=== PATIENT | female | born 1935 | race Caucasian/White ===

== ENCOUNTER → 2019-05-21 14:24 | Outpatient (CLI) | payer MEDICARE, BC, SELFPAY ==
--- NOTE | ~2019-05-21 | XR_ITS ---
EXAMINATION: XR chest 2V EXAM DATE: 05/21/2019 14:49 INDICATION: Wheezing, cough. TECHNIQUE: Frontal and lateral projections of the chest obtained and reviewed. Comparison is made to prior examination from 04/15/2018. FINDINGS: There is a dual lead pacemaker/AICD seen with leads projecting over the expected locations of the right atrial appendage and right ventricle. Left midlung zone granuloma. The lungs are otherwi se clear. There are no pleural effusions. The cardiomediastinal silhouette is within normal limits. There is no pneumothorax suspected. The bones and soft tissues are unremarkable. IMPRESSION: No acute cardiopulmonary findings. Reviewed, dictated and finalized at location B. ER GUARD
== END ==
PROVIDERS: PCP Family Medicine; Visit Provider Family Medicine
DX: R05 Cough (principal); R06.2 Wheezing
CPT/HCPCS: 71046

== ENCOUNTER 2021-01-06 08:49 | Outpatient (CLI) | payer MEDICARE, BC, SELFPAY | END 2021-01-06 08:50 | disposition home or self-care (01) | LOC: ANHBWCAUD 08:50 | PROVIDERS: PCP Family Medicine; Visit Provider Family Medicine | DX: H90.3 Sensorineural hearing loss, bilateral (principal) | CPT/HCPCS: 92557; 92567 ==

== ENCOUNTER 2021-01-20 09:46 | Outpatient (RCR) | payer MEDICARE, BC, SELFPAY | END 2021-04-20 23:59 | disposition home or self-care (01) | LOC: ANHBWCAUD 09:46 | PROVIDERS: PCP Family Medicine; Visit Provider Family Medicine | DX: Z46.1 Encounter for fitting and adjustment of hearing aid (principal) | CPT/HCPCS: V5261 ==

== ENCOUNTER 2021-03-26 09:40 | Emergency (ER) | payer MEDICARE, BC, SELFPAY ==
[2021-03-26 09:54] VITALS: BP 181/60; PULSE 76; RESP 20; TEMP 36.9; O2SAT 95
--- NOTE | 2021-03-26 10:21 | ED.URI ---
HPI - URI/Sore Throat General Chief Complaint: Upper Respiratory Infection Stated Complaint: congestion Time Seen by Provider: 03/26/21 10:25 Source: patient, family and RN notes reviewed Mode of arrival: ambulatory Limitations: no limitations History of Present Illness HPI Narrative: Israel is an 85-year-old female patient who ambulated into the [facility] accompanied by her granddaughter. Her 2 granddaughters are her primary caregivers. Patient has a 2-day history of nasal congestion. Patient denies any other symptoms. Patient is having a pacemaker battery exchange on April 01 and just wanted to make sure she had nothing she needed antibiotics for. Patient has been taking Coricidin BP x1 dose at home. MD elicited complaint: nasal congestion Related Data Home Medications Medication Instructions Recorded Confirmed aspirin 81 mg tablet,delayed 81 mg PO DAILY 05/21/19 03/26/21 release calcium carbonate 600 mg calcium 600 mg PO DAILY 05/21/19 03/26/21 (1,500 mg) tablet calcium polycarbophil 625 mg tablet 1,250 mg PO DAILY 05/21/19 03/26/21 cholecalciferol (vitamin D3) 50 2,000 unit PO DAILY 05/21/19 03/26/21 mcg (2,000 unit) tablet cyanocobalamin 1,000 See Rx Instructions .ROUTE 05/21/19 03/26/21 mcg-salcaprozate sodium 100 mg .COMPLEX tablet tablet lisinopril 30 mg tablet 30 mg PO BID 10/06/20 03/26/21 Allergies Allergy/AdvReac Type Severity Reaction Status Date / Time adhesive tape Allergy Severe BLISTERS, Verified 03/26/21 09:58 RED, SKIN BREAKDOWN celecoxib Allergy Unknown Agitated Verified 03/26/21 09:58 diclofenac Allergy Unknown Redness of Verified 03/26/21 09:58 Skin levofloxacin Allergy Unknown Unknown Verified 03/26/21 09:58 mirabegron Allergy Unknown Unknown Verified 03/26/21 09:58 pneumococcal vaccine Allergy Unknown Unknown Verified 03/26/21 09:58 Quinolones Allergy Unknown Unknown Verified 03/26/21 09:58 hydrochlorothiazide Allergy low sodium Verified 03/26/21 09:58 Influenza Virus Vaccines Allergy Unknown Verified 03/26/21 10:09 metoprolol Allergy Unknown Verified 03/26/21 10:09 DICLOFENAC SODIUM Allergy Mild Nausea Uncoded 10/06/20 10:10 Review of Systems Review of Systems: CONSTITUTIONAL: Denies body aches, fever, chills, or sweats. EYES: Denies visual changes, redness, or discharge. ENT: Denies rhinorrhea,+ congestion, denies sore throat, or otalgia. CARDIOVASCULAR: Denies chest pain, palpitations, or edema. RESPIRATORY: Denies cough or dyspnea. GASTROINTESTINAL: Denies abdominal pain, nausea, vomiting, or diarrhea. GENITOURINARY: Denies dysuria or hematuria. SKIN: Denies rash, itching, or wounds. MUSCULOSKELETAL: Denies back pain, joint pain, or myalgia. NEUROLOGIC: Denies headache, numbness, tingling, or weakness. PSYCH: Denies depression or anxiety. All systems reviewed & are unremarkable except as noted in HPI and below PMFSH Past Medical History Medical History Hearing difficulty Surgical History Surgical History History of hip surgery Family History Family History Mother Family history of pancreatic cancer Father Acute myocardial infarction Social History Social History Smoking status: Never smoker Second hand tobacco smoke exposure: No Alcohol intake: never Substance use: never Comments At time of signature, I have reviewed and agree with nursing past medical, surgical, social and family history unless otherwise noted. Please see nursing chart for further information. There is no relevant family history pertinent to the presenting complaint Exam Narrative: GENERAL: Well-appearing, well-nourished, and in no acute distress. HEAD: Normocephalic, atraumatic. EYES: EOMI. No redness or drainage. Conjunctivae normal.
== END 2021-03-26 10:35 | disposition home or self-care (01) ==
PROVIDERS: Emergency Provider Nurse Practitioner Family; PCP Family Medicine
DX: J30.9 Allergic rhinitis, unspecified (principal); Z79.82 Long term (current) use of aspirin
CPT/HCPCS: 99211; G0463

== ENCOUNTER 2021-04-01 00:27 | Day surgery (SDC) | payer MEDICARE, BC, SELFPAY ==
--- NOTE | 2021-04-01 07:00 | ECG_ITS ---
Measurements Intervals [place] Rate: 61 P: 184 [place]: 250 QRS: -55 QRSD: 134 T: 62 QT: 443 QTc: 447 Interpretive Statements ELECTRONIC ATRIAL PACEMAKER INCOMPLETE RIGHT BUNDLE BRANCH BLOCK BASELINE ARTIFACT- V6 BORDERLINE ECG Electronically Signed On 04-01-2021 10:26:42 CONVEYOR BELT REPAIRER by Randolph Cruz D.O.
--- NOTE | 2021-04-01 07:10 | SUR.PREOP ---
ARRIVES VIA WC TO [facility] W/ GRANDDAUGHTER, XIANG, AT SIDE FOR SCHEDULED PPM GENERATOR CHANGE OUT W/ DR. BARKSDALE. HX OF DEMENTIA, BUT IS AWAKE, ALERT, [place], ANSWERS QUESTIONS. ABLE TO MAKE NEEDS KNOWN, BUT IS POOR HISTORIAN. ORIENTED TO ROOM, PLAN OF CARE, PROCEDURE. QUESTIONS ANSWERED. IV STARTED, LABS SENT, VS OBTAINED, CONSENT SIGNED, SKIN PREPPED. WILL CONTINUE TO MONITOR.
[2021-04-01 07:30] VITALS: BP 142/57; PULSE 65; RESP 22; TEMP 36.5; O2SAT 93
[2021-04-01 07:40] VITALS: BMI 33.3
--- NOTE | 2021-04-01 07:50 | SUR.PREOP ---
CRYSTAL FROM [employer] HERE TO SEE PT PRIOR TO PPM GENERATOR CHANGE.
[2021-04-01 07:56] LABS: Basophils Absolute Auto 0.1 K/mm3 (0.0-0.1); Basophils Percent Auto 0.5 % (0.2-1.2); Eosinophils Absolute Auto 0.2 K/mm3 (0-0.3); Eosinophils Percent Auto 2.2 % (0-4.4); Hemoglobin 13.8 g/dL (12.0-15.0); Immature Granulocyte Absolute 0.03 K/mm3 (0.00-0.031); Immature Granulocyte Percent A 0.3 % (0-0.5); Lymphocytes Absolute Auto 1.38 K/mm3 (0.9-3.2); Lymphocytes Percent Auto 13.1 % (18.3-44.2); Mean Corpuscular HGB Conc 34.5 g/dl (32-36); Mean Corpuscular Hemoglobin 31.6 pg (26-34); Mean Corpuscular Volume 91.5 fl (80-100); Mean Platelet Volume 10.8 fl (7.4-10.4); Monocytes Absolute Auto 0.7 K/mm3 (0.1-0.6); Monocytes Percent Auto 6.1 % (2.6-8.5); Neutrophils Absolute Auto 8.2 K/mm3 (1.3-6.7); Neutrophils Percent Auto 77.8 % (45.5-73.1); Platelet Count Result 151 k/mm3 (150-375); Red Blood Count 4.37 M/mm3 (4.2-5.4); Red Cell Distribution Width 13.2 % (11.5-14.5); White Blood Count 10.6 K/mm3 (4.5-10.0)
[2021-04-01 08:00] LABS: Anion Gap 7 mmol/L (8-16); Blood Urea Nitrogen 18 mg/dL (7-17); Calcium 9.9 mg/dL (8.4-10.2); Carbon Dioxide 31 mmol/L (22-30); Chloride 103 mmol/L (98-107); Estimated CRCL calculation 35 ml/min; Estimated Glomerular Filt Rate 47; Glucose 107 mg/dL (65-110); Potassium 3.7 mmol/L (3.4-5.0); Sodium 141 mmol/L (137-145)
[2021-04-01 08:10] LABS: Prothrombin Time 13.4 Seconds (11.1-14.7)
--- NOTE | 2021-04-01 08:10 | SUR.PREOP ---
DR. BARKSDALE TO BEDSIDE TO SEE PT.
--- NOTE | 2021-04-01 08:23 | WPDMODSED ---
Moderate Sedation Note-Pt Data Patient Data Diagnosis: Permanent pacemaker at [facility] Present Complaint: no complaint Procedure to be performed/Plan: pacemaker generator change Allergies Allergy/AdvReac Type Severity Reaction Status Date / Time adhesive tape Allergy Severe BLISTERS, Verified 03/31/21 11:25 RED, SKIN BREAKDOWN celecoxib Allergy Unknown Agitated Verified 03/31/21 11:25 diclofenac Allergy Unknown Redness of Verified 03/31/21 11:25 Skin levofloxacin Allergy Unknown Unknown Verified 03/31/21 11:25 mirabegron Allergy Unknown Unknown Verified 03/31/21 11:25 pneumococcal vaccine Allergy Unknown Unknown Verified 03/31/21 11:25 Quinolones Allergy Unknown Unknown Verified 03/31/21 11:25 hydrochlorothiazide Allergy low sodium Verified 03/31/21 11:25 Influenza Virus Vaccines Allergy Unknown Verified 03/31/21 11:25 metoprolol Allergy Unknown Verified 03/31/21 11:25 DICLOFENAC SODIUM Allergy Mild Nausea Uncoded 10/06/20 10:10 Home Medications Medication Instructions Recorded Confirmed Type aspirin 81 mg tablet,delayed 81 mg PO DAILY 05/21/19 03/31/21 History release calcium carbonate 600 mg calcium 600 mg PO DAILY 05/21/19 03/31/21 History (1,500 mg) tablet calcium polycarbophil 625 mg tablet 1,250 mg PO DAILY 05/21/19 03/31/21 History cholecalciferol (vitamin D3) 50 2,000 unit PO DAILY 05/21/19 03/31/21 History mcg (2,000 unit) tablet cyanocobalamin 1,000 See Rx Instructions .ROUTE 05/21/19 03/31/21 History mcg-salcaprozate sodium 100 mg .COMPLEX tablet tablet lisinopril 30 mg tablet 30 mg PO BID 10/06/20 04/01/21 History atorvastatin 20 mg tablet 20 mg PO DAILY #30 tablet 03/07/21 04/01/21 Rx levothyroxine 100 mcg tablet 100 mcg PO DAILY #30 tablet 03/07/21 04/01/21 Rx Sedation/Anesthesia: No previous sedation/anesthesia problems (including family history). [facility] Past Medical History Medical History Hearing difficulty Surgical History Surgical History History of hip surgery Family History Family History Mother Family history of pancreatic cancer Father Acute myocardial infarction Social History Social History Smoking status: Never smoker Second hand tobacco smoke exposure: No Alcohol intake: never Substance use: never Living arrangements: [facility] Mod Sed Physical Exam Physical Exam Pre Procedural Exam: Normal: Appearance ( pleasant elderly lady no distress), Neck, Throat, Airway, Lungs, Heart Size, Heart Rate, Heart Rhythm, Neuro Exam and Extremities Hours since solid foods: 12 Hours since liquid intake: 12 Mallampati Classification: class III Internal Medicine - PN: Obj Da Vital Signs Vital Signs: Vital Signs - 24 hr 04/01/21 07:30 Temperature 36.5 C Pulse Rate 65 Respiratory Rate 22 H Blood Pressure 142/57 H Pulse Oximetry 93 Labs CBC & Chem 7: 04/01/21 07:32 04/01/21 07:32 Labs: Laboratory Results - last 24 hr 04/01/21 04/01/21 04/01/21 07:32 07:32 07:32 WBC 10.6 H RBC 4.37 Hgb 13.8 Hct 40.0 MCV 91.5 MCH 31.6 MCHC 34.5 RDW 13.2 Plt Count 151 MPV 10.8 H Immature Gran % (Auto) 0.3 Neut % (Auto) 77.8 H Lymph % (Auto) 13.1 L [place] % (Auto) 6.1 Eos % (Auto) 2.2 Baso % (Auto) 0.5 Lymph # (Auto) 1.38 [place] # (Auto) 0.7 H Eos # (Auto) 0.2 Baso # (Auto) 0.1 Abs Immat Gran (auto) 0.03 Absolute Neuts (auto) 8.2 H Absolute Nucleated RBC 0.0 Nucleated RBC % 0.0 PT 13.4 INR 1.0 Sodium 141 Potassium 3.7 Chloride 103 Carbon Dioxide 31 H Anion Gap 7 L BUN 18 H Creatinine 1.10 H Estim Creat Clear Calc 35 Estimated GFR 47 L Glucose 107 Calcium 9.9 ASA Classificat
--- NOTE | 2021-04-01 08:24 | PM.IMHP ---
H&P: HPI History of Present Illness Date/Time: 04/01/21 08:24 Chief Complaint: no complaints Narrative: this is an 86-year-old woman with the chronically implanted Medtronic dual-chamber pacemaker system admitted to the hospital as an outpatient this morning for a pacemaker generator change. Patient on routine office follow-up has been found to be at [facility] and therefore is admitted today to have the generator changed. She has a history of symptomatic bradycardia with sick sinus syndrome and pauses and for that reason had a pacemaker implantation about 11 years ago. The device continues to function normal. The leads are functioning properly and anticipate do not anticipate the need to place new leads. She has no specific complaints today. The principal health problem in recent years had been some mildly advancing dementia. Review of Systems Constitutional: Constitutional: Reports no additional constitutional complaints Eyes: Eyes: Reports no additional eye complaints ENT: Reports system reviewed and no additional complaints, except as documented Cardiovascular: Cardiovascular: Reports as per HPI Respiratory: Respiratory: Reports no additional respiratory complaints Gastrointestinal: Gastrointestinal: Reports no additional gastrointestinal complaints Musculoskeletal: Musculoskeletal: Reports no additional musculoskeletal complaints Integumentary/Breasts: Skin/Breast: Reports system reviewed and no additional complaints, except as docu Neurologic: Reports system reviewed and no additional complaints, except as documented [facility] Past Medical History Medical History Hearing difficulty Surgical History Surgical History History of hip surgery Family History Family History Mother Family history of pancreatic cancer Father Acute myocardial infarction Social History Social History Smoking status: Never smoker Second hand tobacco smoke exposure: No Alcohol intake: never Substance use: never Living arrangements: [facility] Home Medications and Allergies Home Medications Medication Instructions Recorded Confirmed Type aspirin 81 mg tablet,delayed 81 mg PO DAILY 05/21/19 03/31/21 History release calcium carbonate 600 mg calcium 600 mg PO DAILY 05/21/19 03/31/21 History (1,500 mg) tablet calcium polycarbophil 625 mg tablet 1,250 mg PO DAILY 05/21/19 03/31/21 History cholecalciferol (vitamin D3) 50 2,000 unit PO DAILY 05/21/19 03/31/21 History mcg (2,000 unit) tablet cyanocobalamin 1,000 See Rx Instructions .ROUTE 05/21/19 03/31/21 History mcg-salcaprozate sodium 100 mg .COMPLEX tablet tablet lisinopril 30 mg tablet 30 mg PO BID 10/06/20 04/01/21 History atorvastatin 20 mg tablet 20 mg PO DAILY #30 tablet 03/07/21 04/01/21 Rx levothyroxine 100 mcg tablet 100 mcg PO DAILY #30 tablet 03/07/21 04/01/21 Rx Allergies Allergy/AdvReac Type Severity Reaction Status Date / Time adhesive tape Allergy Severe BLISTERS, Verified 03/31/21 11:25 RED, SKIN BREAKDOWN celecoxib Allergy Unknown Agitated Verified 03/31/21 11:25 diclofenac Allergy Unknown Redness of Verified 03/31/21 11:25 Skin levofloxacin Allergy Unknown Unknown Verified 03/31/21 11:25 mirabegron Allergy Unknown Unknown Verified 03/31/21 11:25 pneumococcal vaccine Allergy Unknown Unknown Verified 03/31/21 11:25 Quinolones Allergy Unknown Unknown Verified 03/31/21 11:25 hydrochlorothiazide Allergy low sodium Verified 03/31/21 11:25 Influenza Virus Vaccines Allergy Unknown Verified 03/31/21 11:25 metoprolol Allergy Unknown Verified 03/31/21 11:25 DICLOFENAC SODIUM Allergy Mild Nausea Uncoded 10/06/20 10:10 Vital Signs Vital Signs - 24 hr 04/01/21 07:30 Temperature 36.5 C Pulse Rate
--- NOTE | 2021-04-01 09:17 | WPDCARDPROC ---
Cardiac Cath Procedure Note Date of procedure:: 04/01/21 Performing physician:: Mikhail Patiño MD Indication:: permanent dual-chamber pacemaker at [facility] Brief clinical history:: this is a 86-year-old woman with a history of sick sinus syndrome being treated with a chronically implanted dual-chamber Medtronic pacemaker. The device on routine office follow-up has been found to be at [facility] and she is thus the admitted today for a pacemaker generator change. Procedure Procedure performed:: Explantation of depleted pacemaker generator implantation of new dual-chamber pulse generator Sedation/Medication given:: no sedation Access site:: left anterior chest wall at the site of chronically implanted device Estimated blood loss:: less than 10 cc Procedure note:: patient was brought to the cardiac catheterization lab in the postabsorptive state the patient was placed in the supine position on the director of labor relations table and the pacemaker pocket was easily identified with the previous incision and the device is palpable inferior to the incision. The area was prepped and draped in the usual sterile fashion. 1% lidocaine was then infused just inferior to the incision for local anesthesia. I used the plasma blade to incise the skin and the subcutaneous tissue I used electrocautery to provide cutaneous hemostasis. The pacemaker fibrous pocket was encountered and opened with the Metzenbaum scissors and the pacemaker device in the attached leads were removed and found to be visually unremarkable. The leads were then disconnected from the device using the torque wrench. They were connected to the new pacemaker device using the same torque wrench. The pocket was then irrigated with Ancef infused saline. The new device was placed in [place] Alexander antibiotic sleeve. This was then placed into the pocket the pocket was then reclosed in layers using 3-0 Vicryl in interrupted fashion for the subcutaneous tissue and 4-0 Vicryl in a running subcuticular fashion for the skin. The wound was dressed with and Aquacel dressing. Patient was taken to the holding area in stable condition there were no apparent procedural complications of this was well tolerated. Findings:: the explanted device is a Medtronic dual-chamber pacemaker model ADDRO1 serial number [id number] . device was originally implanted March 20, 2010. The newly implanted device is a dual-chamber pacemaker model W1DRO1, serial number [id number]. device is programmed in the DDDR mode lower rate limit 60 upper rate limit 130 av delay 180/150 milliseconds. The atrial lead is the chronically Medtronic bipolar lead model 053941, serial number [id number]. implanted March 20, 2010. R-waves are sensed at 2.5 mV threshold is 0.75 volts at 0.4 milliseconds impedance 399 Ohms. The ventricular lead is the chronically implanted Medtronic bipolar lead model 5076-52 serial number [id number]. which in implanted pulse 10/12/2009. R-waves are sensed at 5.8 mV threshold 0.75 volts at 0.4 milliseconds pacing impedance 406 Ohms. Conclusion:: 1. Successful uncomplicated explantation of depleted dual-chamber pulse generator at [facility] 2. successful uncomplicated implantation of new dual-chamber pulse generator detailed above for ongoing treatment of sick sinus syndrome in this 86-year-old lady. Mikhail Patiño MD [facility]
[2021-04-01 09:35] VITALS: BP 138/50; PULSE 60; RESP 18; TEMP 37.2; O2SAT 95
[2021-04-01 09:50] VITALS: BP 139/49; PULSE 60; RESP 20; O2SAT 90
[2021-04-01 10:05] VITALS: BP 133/53; PULSE 62; RESP 20; O2SAT 94
[2021-04-01 10:20] VITALS: BP 129/50; PULSE 60; RESP 20; O2SAT 95
[2021-04-01 10:35] VITALS: BP 125/45; PULSE 60; RESP 20; O2SAT 93
--- NOTE | 2021-04-01 11:15 | SUR.PHASEII ---
Discharge instructions given and reviewed with granddaughter (POA) and pt. Both verbalized understanding. No new drainaged noted on dressing. Pt has no c/o pain or distress. DC'd home via wheelchair from [facility] holding to granddaughters car all belongings taken by granddaughter.
== END 2021-04-01 11:15 | disposition home or self-care (01) ==
PROVIDERS: PCP Family Medicine; Visit Provider Specialist
PROC: 0JPT0PZ Removal of Cardiac Rhythm Related Device from Trunk Subcutaneous Tissue and Fascia, Open Approach (ICD-10-PCS; CPT 33228; principal; 2021-04-01 08:30)
DX: Z45.010 Encounter for checking and testing of cardiac pacemaker pulse generator [battery] (principal); F03.90 Unspecified dementia, unspecified severity, without behavioral disturbance, psychotic disturbance, mood disturbance, and anxiety; Z79.82 Long term (current) use of aspirin
CPT/HCPCS: 33228; 36415; 80048; 85025; 85610; 93005; C1785; J0690; J7040

== ENCOUNTER → 2021-04-15 17:05 | Outpatient (CLI) | payer MEDICARE, BC, SELFPAY ==
--- NOTE | ~2021-04-15 | XR_ITS ---
EXAMINATION: XR chest 2V DATE: 04/15/2021 17:28 INDICATION: Dyspnea TECHNIQUE: PA and lateral views of the chest were obtained. COMPARISON: Chest radiograph dated 05/21/2019 FINDINGS: Again seen is a calcified nodules in the left midlung zone consistent with old granulomatous disease. Small bilateral paracardial fat pads. No other airspace opacities, pulmonary edema, pleural effusion or pneumothorax.. The cardiomediastinal silhouette is normal. Dual lead pacemaker seen with leads pr ojecting over the expected locations of the right atrium and right ventricle. Cholecystectomy clips i n the right upper quadrant. Mild thoracolumbar levoscoliosis with mild spondylosis. IMPRESSION: 1. No acute cardiopulmonary disease. Reviewed, dictated and finalized at location H. TRONIC PAGE MAKEUP SYSTEM OPERATOR
== END ==
PROVIDERS: PCP Family Medicine; Visit Provider Family Medicine
DX: R06.00 Dyspnea, unspecified (principal); R05.9 Cough, unspecified
CPT/HCPCS: 71046

== ENCOUNTER 2021-05-15 13:52 | Outpatient (RCR) | payer MEDICARE, BC, SELFPAY | END 2021-08-13 23:59 | disposition home or self-care (01) | LOC: ANHBWCAUD 13:52 | PROVIDERS: PCP Family Medicine; Visit Provider Family Medicine | DX: Z46.1 Encounter for fitting and adjustment of hearing aid (principal) | CPT/HCPCS: 99199 ==

== ENCOUNTER 2021-09-14 08:45 | Emergency (ER) | payer MEDICARE, BC, SELFPAY ==
[2021-09-14] VITALS (17 sets, daily range): BP systolic 160–212; BP diastolic 45–74; PULSE 60–77; RESP 13–24; TEMP 36.3–36.8; O2SAT 97–99
--- NOTE | ~2021-09-14 | CT_ITS ---
EXAMINATION: CT brain wo con DATE: 09/14/2021 10:08 INDICATION: Headache. No loss of consciousness. TECHNIQUE: Computed tomography (CT) of the head was performed without intravenous contrast. The dose- length product was 529.67 mGy-cm. Automated exposure control and iterative reconstruction technique w ere employed. COMPARISON: CT dated 10/25/2017 FINDINGS: No acute intracranial hemorrhage, infarction, mass or mass effect. There is intracranial at herosclerosis. Generalized atrophy. There are scattered mild periventricular and subcortical white ma tter changes, most likely related to small vessel ischemic disease (microangiopathy). No depressed sk ull fractures. Paranasal sinuses are pneumatized. Mild small mastoid effusions. IMPRESSION: 1. No acute intracranial abnormality. 2: Chronic age-related findings. Reviewed, dictated and finalized at location A.
--- NOTE | ~2021-09-14 | CT_ITS ---
EXAMINATION: CT facial & cervical spine wo DATE: 09/14/2021 10:08 INDICATION: Head and face injury. TECHNIQUE: Computed tomography (CT) of the maxillofacial region and cervical spine was performed with out intravenous contrast. Automated exposure control and iterative reconstruction technique were empl oyed. The dose-length product was 398.87 mGy-cm. COMPARISON: CT cervical spine 10/25/2017 FINDINGS: MAXILLOFACIAL CT: There are likely changes of ocular lens replacement surgeries. There is rightward deviation of the na lonnie septum. No fracture. There is mild mucosal thickening in the paranasal sinuses. There are small b ilateral mastoid effusions. CERVICAL SPINE CT: Bone alignment is normal. Vertebral body heights are normal. There is mildly decreased disc height at C4-C5, moderately decreased disc height at C5-C6, and mildly decreased disc height at C6-C7. The fol lowing disc levels are specifically discussed: C2-C3: There is no uncovertebral joint osteoarthritis. There is mild bilateral facet joint osteoarthr itis. There is no neural foraminal stenosis. There is no central canal stenosis. C3-C4: There is mild right and moderate left uncovertebral joint osteoarthritis. There is mild bilate ral facet joint osteoarthritis. There is mild bilateral neural foraminal stenosis. There is mild cent ral canal stenosis. C4-C5: There is no uncovertebral joint osteoarthritis. There is mild bilateral facet joint osteoarthr itis. There is mild left neural foraminal stenosis. There is no central canal stenosis. C5-C6: There is severe right and mild left uncovertebral joint osteoarthritis. There is mild bilatera l facet joint osteoarthritis. There is moderate right and mild left neural foraminal stenosis. There is mild central canal stenosis. C6-C7: There is no uncovertebral joint osteoarthritis. There is mild left facet joint osteoarthritis. There is no neural foraminal stenosis. There is no central canal stenosis. C7-T1: There is no uncovertebral joint osteoarthritis. There is mild bilateral facet joint osteoarthr itis. There is no neural foraminal stenosis. There is no central canal stenosis. IMPRESSION: 1. No fracture. 2. Moderate cervical spondylosis. Reviewed, dictated and finalized at location A.
--- NOTE | ~2021-09-14 | XR_ITS ---
EXAMINATION: XR ribs RT 2V w CXR 2V DATE: 09/14/2021 10:01 INDICATION: Right rib pain. Fall. TECHNIQUE: Frontal and lateral views of the chest and 2 views on 3 radiographs of the right ribs were obtained. COMPARISON: Chest 2 views 04/15/2021, CT abdomen and pelvis 12/25/2013 FINDINGS: CHEST TWO VIEWS: A calcified left lung nodule and calcified left hilar lymph nodes are consistent wit h old granulomatous disease. No pleural effusion or pneumothorax. The heart size is normal. There is a left chest wall pacer with leads in the right atrium and right ventricle. Surgical clips in the rig ht upper quadrant are likely from cholecystectomy. RIGHT RIBS: There is no rib fracture. IMPRESSION: 1. No rib fracture. Reviewed, dictated and finalized at location A. IMPRESSION: 1. No rib fracture.
--- NOTE | ~2021-09-14 | XR_ITS ---
XR hip LT min 3V w AP pelvis 09/14/2021 10:01 Indication: Status post fall. Patient landed on hip. Procedure: 5 views of the left hip including AP pelvis Comparison: 04/13/2017 Findings: There is a left femoral bipolar hemiarthroplasty. Prosthesis well seated. No underlying fra cture or traumatic malalignment. Normal mineralization. There are femoral vascular calcifications. Th ere is mild osteoarthritis of the right hip and pubic symphysis. There is lower lumbar spondylosis. Impression: 1: No acute fracture. Reviewed, dictated and finalized at location A. Impression: 1: No acute fracture.
--- NOTE | 2021-09-14 08:59 | ECG_ITS ---
Measurements Intervals [place] Rate: 67 P: 46 DE: 212 QRS: -63 QRSD: 129 T: 53 QT: 398 QTc: 420 Interpretive Statements SINUS RHYTHM WITH FIRST DEGREE AV BLOCK RIGHT BUNDLE BRANCH BLOCK LEFT ANTERIOR FASCICULAR BLOCK BASELINE ARTIFACT- I, II, III, AVR, AVF ABNORMAL ECG Electronically Signed On 09-14-2021 9:10:37 CDT by Randolph Cruz D.O.
[2021-09-14 09:25] LABS: Basophils Absolute Auto 0.1 K/mm3 (0.0-0.1); Basophils Percent Auto 0.6 % (0.2-1.2); Eosinophils Absolute Auto 0.4 K/mm3 (0-0.3); Hematocrit 42.5 % (37.0-47.0); Hemoglobin 14.1 g/dL (12.0-15.0); Immature Granulocyte Absolute 0.06 K/mm3 (0.00-0.031); Immature Granulocyte Percent A 0.6 % (0-0.5); Lymphocytes Absolute Auto 2.49 K/mm3 (0.9-3.2); Mean Corpuscular HGB Conc 33.2 g/dl (32-36); Mean Corpuscular Hemoglobin 31.1 pg (26-34); Mean Corpuscular Volume 93.8 fl (80-100); Mean Platelet Volume 11.2 fl (7.4-10.4); Monocytes Absolute Auto 0.6 K/mm3 (0.1-0.6); Monocytes Percent Auto 6.1 % (2.6-8.5); Neutrophils Percent Auto 62.7 % (45.5-73.1); Platelet Count Result 154 k/mm3 (150-375); Red Blood Count 4.53 M/mm3 (4.2-5.4); Red Cell Distribution Width 13.1 % (11.5-14.5); White Blood Count 9.6 K/mm3 (4.5-10.0)
--- NOTE | 2021-09-14 09:30 | ED.FALL ---
HPI - Fall General Chief Complaint: Fall Stated Complaint: FALL Time Seen by Provider: 09/14/21 09:07 History of Present Illness HPI Narrative: 86-year-old female presents to the emergency room for evaluation of multiple injuries sustained from a fall. Patient states that she was a sitting down in her chair, when the phone rang, she stood up and walked over to her the phone was. Patient states that she suddenly fell backwards striking her face on a heating and air conditioning unit, and then her right ribs and left hip before landing on the floor. Patient denies any dizziness or lightheadedness during the event. Patient denies any altered mental status or loss of consciousness. Patient states that she does not have a history of fall. No, patient is alert and oriented x4, complaining of left facial pain, right rib pain and left hip pain. Patient was ambulatory following the fall. Related Data Home Medications Medication Instructions Recorded Confirmed aspirin 81 mg tablet,delayed 81 mg PO DAILY 05/21/19 04/15/21 release calcium polycarbophil 625 mg tablet 1,250 mg PO DAILY 05/21/19 04/15/21 cholecalciferol (vitamin D3) 50 2,000 unit PO DAILY 05/21/19 04/15/21 mcg (2,000 unit) tablet cyanocobalamin 1,000 1,000 DAILY tablet 05/21/19 04/15/21 mcg-salcaprozate sodium 100 mg tablet lisinopril 30 mg tablet 30 mg PO BID 10/06/20 04/15/21 Allergies Allergy/AdvReac Type Severity Reaction Status Date / Time adhesive tape Allergy Severe BLISTERS, Verified 04/15/21 16:01 RED, SKIN BREAKDOWN celecoxib Allergy Unknown Agitated Verified 04/15/21 16:01 diclofenac Allergy Unknown Redness of Verified 04/15/21 16:01 Skin levofloxacin Allergy Unknown Unknown Verified 04/15/21 16:01 mirabegron Allergy Unknown Unknown Verified 04/15/21 16:01 pneumococcal vaccine Allergy Unknown Unknown Verified 04/15/21 16:01 Quinolones Allergy Unknown Unknown Verified 04/15/21 16:01 hydrochlorothiazide Allergy low sodium Verified 04/15/21 16:01 Influenza Virus Vaccines Allergy Unknown Verified 04/15/21 16:01 metoprolol Allergy Unknown Verified 04/15/21 16:01 DICLOFENAC SODIUM Allergy Mild Nausea Uncoded 04/15/21 16:01 Review of Systems Review of Systems: CONSTITUTIONAL: Denies fever, chills, or sweats. EYES: Denies visual changes, redness, or discharge. ENT: Denies rhinorrhea, congestion, sore throat, or otalgia. CARDIOVASCULAR: Denies chest pain, palpitations, or edema. RESPIRATORY: Denies cough or dyspnea. GASTROINTESTINAL: Denies abdominal pain, nausea, vomiting, or diarrhea. GENITOURINARY: Denies dysuria or hematuria. SKIN: Denies rash or itching. MUSCULOSKELETAL: Reports left face pain, right rib cage pain, left hip pain NEUROLOGIC: Denies headache, numbness, dizziness, or weakness. PSYCHIATRIC: Denies anxiety or depression. PMFSH Past Medical History Medical History Hearing difficulty Surgical History Surgical History History of hip surgery Family History Family History Mother Family history of pancreatic cancer Father Acute myocardial infarction Social History Social History Smoking status: Never smoker Second hand tobacco smoke exposure: No Alcohol intake: never Substance use: never Exam Narrative: GENERAL: Well-appearing, well-nourished, and in no acute distress. HEAD: Normocephalic, tenderness and swelling to the left maxillary region. EYES: PERRLA and EOMI. NECK: Supple. No adenopathy or masses. No carotid bruits or JVD CHEST: Clear to auscultation. No respiratory distress. No wheezes rales or rhonchi; tenderness to the anterior 11th and 12th ribs, no flail chest, no ecchymosis HEART: Regular rate and rhythm. No murmur heard. Normal peripheral pulses. ABDOMEN: Soft, non
[2021-09-14 09:54] LABS: Alanine Aminotransferase 20 U/L (6-35); Albumin Level 4.4 g/dL (3.5-5.1); Alkaline Phosphatase 72 U/L (38-126); Anion Gap 10 mmol/L (8-16); Aspartate Amino Transferase 44 U/L (14-36); Blood Urea Nitrogen 16 mg/dL (7-17); Calcium 9.6 mg/dL (8.4-10.2); Carbon Dioxide 28 mmol/L (22-30); Chloride 101 mmol/L (98-107); Estimated CRCL calculation 41 ml/min; Estimated Glomerular Filt Rate 59; Glucose 115 mg/dL (65-110); Potassium 4.9 mmol/L (3.4-5.0); Sodium 139 mmol/L (137-145)
[2021-09-14 10:03] LABS: Troponin I 0.021 ng/mL (0.000-0.034)
[2021-09-14] MEDS: lisinopriL 10 MG TABLET 30 MG PO (10:17)
[2021-09-14] MEDS: cloNIDine HCL 0.1 MG TABLET PO (11:13)
== END 2021-09-14 12:17 | disposition home or self-care (01) ==
PROVIDERS: Emergency Medicine; Emergency Provider Nurse Practitioner Family; PCP Family Medicine
DX: S00.83XA Contusion of other part of head, initial encounter (principal); N30.00 Acute cystitis without hematuria; S79.912A Unspecified injury of left hip, initial encounter; S29.9XXA Unspecified injury of thorax, initial encounter; I45.2 Bifascicular block; I44.0 Atrioventricular block, first degree; Z79.82 Long term (current) use of aspirin; W01.198A Fall on same level from slipping, tripping and stumbling with subsequent striking against other object, initial encounter
CPT/HCPCS: 36415; 70450; 70486; 71046; 71100; 72125; 73502; 80053; 84484; 85025; 93005; 96365; 99284; A9270; J0696

== ENCOUNTER 2021-10-12 06:36 | Outpatient (CLI) | payer MEDICARE, BC, SELFPAY ==
--- NOTE | ~2021-10-12 | CT_ITS ---
EXAMINATION: CT brain wo con INDICATION: Head injury COMPARISON: None TECHNIQUE: Standard unenhanced head CT. The dose-length product (DLP) was 605.33 mGy-cm. The mA was a djusted according to patient size. Iterative reconstruction technique was employed. FINDINGS: There is no acute intraparenchymal hemorrhage. No evidence of mass lesion. No evidence of a cute infarction. There is mild periventricular and subcortical hypodensity probably related to small vessel ischemic disease. There is mild prominence of the sulci and ventricles related to cerebral atr ophy. Intracranial calcified cerebral atherosclerosis is noted. There are no extra-axial collections. There is no mass effect or midline shift. Changes in the globes are likely from ocular lens surgery. The visualized sinuses and mastoid air cells are well aerated. IMPRESSION: 1. No acute intracranial abnormality. 2. Age related findings. Reviewed, dictated and finalized at location A.
== END 2021-10-12 06:37 | disposition home or self-care (01) ==
PROVIDERS: PCP Family Medicine; Visit Provider Family Medicine
DX: S09.90XA Unspecified injury of head, initial encounter (principal); W19.XXXA Unspecified fall, initial encounter
CPT/HCPCS: 70450

== ENCOUNTER 2022-02-07 10:48 | Observation (INO) | payer MEDICARE, BC, SELFPAY ==
[2022-02-07] VITALS (24 sets, daily range): BP systolic 86–199; BP diastolic 49–99; PULSE 60–82; RESP 12–20; TEMP 36.4–36.5; O2SAT 92–100
--- NOTE | ~2022-02-07 | CT_ITS ---
EXAMINATION: CT brain wo con DATE: 02/07/2022 12:45 INDICATION: Head injury post fall TECHNIQUE: Computed tomography (CT) of the head was performed without intravenous contrast. Sagittal and coronal reconstructions were performed. The mA was adjusted according to patient size. Iterative reconstruction technique was employed. The dose-length product was 605.33 mGy-cm. COMPARISON: head CT dated 10/12/2021 FINDINGS: No fracture. No acute intracranial hemorrhage, acute infarction or abnormal extra axial fluid collect ion. There is mild scattered white matter hypoattenuation consistent with chronic small vessel ischem ic disease. Symmetric prominence of the sulci and subarachnoid spaces overlying the convexities cons istent with mild to moderate age-appropriate diffuse cerebral volume loss. Ventricles are normal and symmetric. No mass/mass effect. Changes of bilateral intraocular lens replacement. The orbits and pa ranasal sinuses are normal. Chronic small bilateral mastoid effusions. IMPRESSION: 1. No fracture or acute intracranial process. 2. Age-related changes including mild to moderate diffuse volume loss and mild scattered white matter hypoattenuation consistent with chronic small vessel ischemic disease. Reviewed, dictated and finalized at location A. IMPRESSION: 1. No fracture or acute intracranial process. 2. Age-related changes including mild to moderate diffuse volume loss and mild scattered white matter hypoattenuation consistent with chronic small vessel isc hemic disease.
--- NOTE | ~2022-02-07 | XR_ITS ---
EXAMINATION: XR hip RT 2V w AP pelvis DATE: 02/07/2022 12:57 INDICATION: Right hip pain post fall TECHNIQUE: Anteroposterior view of the pelvis and anteroposterior and frog-leg lateral views of the r ight hip were obtained. COMPARISON: 09/14/2021 FINDINGS: Bipolar type left hip hemiarthroplasty which remains in near-anatomic alignment. No fractures. Mild o steoarthritis at the right hip and bilateral sacral iliac joints. Normal bowel gas pattern. IMPRESSION: 1. No acute osseous abnormality. 2. Bipolar type left hip hemiarthroplasty mild osteoarthritis at the right hip and bilateral sacraliz ed joints. Reviewed, dictated and finalized at location A. IMPRESSION: 1. No acute osseous abnormality. 2. Bipolar type left hip hemiarthroplasty mild osteoarthritis at the right hip and bilateral sacralized joints.
--- NOTE | ~2022-02-07 | US_ITS ---
EXAMINATION: US carotid duplex BI DATE: 02/08/2022 11:31 INDICATION: Syncope. TECHNIQUE: Grayscale, color Doppler, and pulsed Doppler images of the cervical carotid arteries were obtained. The degree of vessel stenosis is placed in one of the following categories: normal, <50%, 5 0-69%, >=70% but less than near-occlusion, near-occlusion, or total occlusion. Note that percent sten osis relative to normal distal artery lumen diameter is indirectly measured from velocity measurement s as described by Roel, et al. Radiology 2003; 229:340-346. COMPARISON: None. FINDINGS: RIGHT: The right common carotid artery (CCA) peak systolic velocity (PSV) is 137 cm/s. The right internal ca rotid artery (ICA) PSV is 129 cm/s. The right ICA end-diastolic velocity (EDV) is 13 cm/s. The right ICA/CCA PSV ratio is 1.7. Grayscale and color Doppler images yield an estimate of <50% diameter reduc tion from plaque in the ICA. There is antegrade flow in the right vertebral artery. LEFT: The left CCA PSV is 106 cm/s. The left ICA PSV is 103 cm/s. The left ICA EDV is 21 cm/s. The left ICA /CCA PSV ratio is 1.3. Grayscale and color Doppler images yield an estimate of <50% diameter reductio n from plaque in the ICA. There is antegrade flow in the left vertebral artery. IMPRESSION: 1. <50% stenosis in the right internal carotid artery. 2. <50% stenosis in the left internal carotid artery. Reviewed, dictated and finalized at location B.
--- NOTE | ~2022-02-07 | XR_ITS ---
EXAMINATION: XR chest 2V DATE: 02/07/2022 12:57 INDICATION: Right-sided chest pain TECHNIQUE: frontal and lateral views of the chest were obtained. COMPARISON: Chest radiograph dated 09/14/2021 FINDINGS: Calcified nodule in the left lower lung zone consistent with old granulomatous disease. No other airs pace opacities, pulmonary edema, pleural effusion or pneumothorax. The cardiomediastinal silhouette i s within normal limits for AP technique. Dual lead pacemaker seen with leads projecting over the expe cted locations of the right atrium and right ventricle. Cholecystectomy clips in right upper quadrant . Mild thoracolumbar levocurvature with mild spondylosis. IMPRESSION: 1. No acute cardiopulmonary disease. Reviewed, dictated and finalized at location A.
--- NOTE | 2022-02-07 12:13 | ED.FALL ---
HPI - Fall General Chief Complaint: Fall Stated Complaint: multiple falls over the past few months. Time Seen by Provider: 02/07/22 11:35 History of Present Illness HPI Narrative: 86-year-old female presenting the emergency department for evaluation after having multiple falls. Patient had a fall a few days ago during which she was in the shower looked up and fell to the right side injuring her right side and her right hip. Patient was not evaluated by physician at that time. Today the patient went to answer the phone, stood up from the couch walked approximately 4 feet and then fell to the ground. Patient states she had no sensation of lightheaded dizziness or generalized weakness. Patient states she was completely unaware that she was going to fall but woke up on the ground. Patient states she was able to get up on her own after the fall. Patient did go out to breakfast with her family after the fall and then they presented to the emergency department for evaluation. History of frequent falls, chronic kidney disease, dementia, sick sinus syndrome with pacemaker. Related Data Home Medications Medication Instructions Recorded Confirmed aspirin 81 mg tablet,delayed 81 mg PO DAILY 05/21/19 02/07/22 release (Adult Low Dose Aspirin) calcium polycarbophil 625 mg 625 mg PO DAILY 05/21/19 02/07/22 tablet (Fiber-Lax) cholecalciferol (vitamin D3) 50 2,000 unit PO DAILY 05/21/19 02/07/22 mcg (2,000 unit) tablet lisinopril 30 mg tablet 30 mg PO BID 10/06/20 02/07/22 cyanocobalamin (vitamin B-12) 1,000 mcg PO DAILY 02/07/22 02/07/22 1,000 mcg tablet (Vitamin B-12) Allergies Allergy/AdvReac Type Severity Reaction Status Date / Time adhesive tape Allergy Severe BLISTERS, Verified 02/07/22 17:46 RED, SKIN BREAKDOWN celecoxib Allergy Unknown Agitated Verified 02/07/22 17:46 diclofenac Allergy Unknown Redness of Verified 02/07/22 17:46 Skin levofloxacin Allergy Unknown Unknown Verified 02/07/22 17:46 mirabegron Allergy Unknown Unknown Verified 02/07/22 17:46 pneumococcal vaccine Allergy Unknown Unknown Verified 02/07/22 17:46 Quinolones Allergy Unknown Unknown Verified 02/07/22 17:46 hydrochlorothiazide Allergy low sodium Verified 02/07/22 17:46 Influenza Virus Vaccines Allergy Unknown Verified 02/07/22 17:46 metoprolol Allergy Unknown Verified 02/07/22 17:46 DICLOFENAC SODIUM Allergy Mild Nausea Uncoded 02/07/22 17:46 Review of Systems Review of Systems: CONSTITUTIONAL: Denies fever, chills, or sweats. EYES: Denies visual changes, redness, or discharge. ENT: Denies rhinorrhea, congestion, sore throat, or otalgia. CARDIOVASCULAR: Denies chest pain, palpitations, or edema. RESPIRATORY: Denies cough or dyspnea. GASTROINTESTINAL: Denies abdominal pain, nausea, vomiting, or diarrhea. GENITOURINARY: Denies dysuria or hematuria. SKIN: Denies rash or itching. MUSCULOSKELETAL: Right-sided chest wall pain and right hip pain NEUROLOGIC: Denies headache, numbness, or weakness. [facility] Past Medical History Medical History (Updated 02/07/22 @ 19:10 by Jack Morocho MD) Benign essential hypertension CKD (chronic kidney disease) Constipation, chronic Dementia Elevated fasting glucose Family history of cancer Frequent falls Hearing difficulty Hyperlipidemia Hyperlipidemia, acquired Hypothyroidism Pacemaker Secondhand smoke exposure Sick sinus syndrome Syncope Vitamin B12 deficiency Surgical History Surgical History History of hip surgery Family History Family History Mother Family history of pancreatic cancer Father Acute myocardial infarction Social History Social History Smoking status: Never smoker Second hand tobacco smoke exposure: No Alcohol intake: never Substance use: never Spiritual care concerns: No Exam Narr
[2022-02-07 13:37] LABS: Add Urine Microscopic? NO; Appearance Urine Clear (Clear); Bilirubin Urine Negative (Negative); Blood Urine Negative (Negative); Color Urine Yellow (Yellow); Glucose Urine UA Negative (Negative); Ketones Urine Negative (Negative); Leukocyte Esterase Ur Negative LEU/UL (Negative); Nitrate Urine Negative (Negative); Protein Urine Negative (Negative); Specific Grav Ur 1.008 (1.001-1.035); Urobilinogen Urine Negative mg/dL (<2.0)
[2022-02-07 14:02] LABS: Basophils Absolute Auto 0.1 K/mm3 (0.0-0.1); Basophils Percent Auto 0.7 % (0.2-1.2); Eosinophils Absolute Auto 0.3 K/mm3 (0-0.3); Eosinophils Percent Auto 3.2 % (0-4.4); Hemoglobin 13.6 g/dL (12.0-15.0); Immature Granulocyte Absolute 0.05 K/mm3 (0.00-0.031); Immature Granulocyte Percent A 0.6 % (0-0.5); Lymphocytes Absolute Auto 1.49 K/mm3 (0.9-3.2); Lymphocytes Percent Auto 16.6 % (18.3-44.2); Mean Corpuscular Hemoglobin 31.6 pg (26-34); Mean Corpuscular Volume 92.8 fl (80-100); Mean Platelet Volume 10.3 fl (7.4-10.4); Monocytes Absolute Auto 0.6 K/mm3 (0.1-0.6); Monocytes Percent Auto 6.1 % (2.6-8.5); Neutrophils Absolute Auto 6.5 K/mm3 (1.3-6.7); Neutrophils Percent Auto 72.8 % (45.5-73.1); Platelet Count Result 194 k/mm3 (150-375); Red Blood Count 4.31 M/mm3 (4.2-5.4); Red Cell Distribution Width 13.4 % (11.5-14.5)
[2022-02-07 14:22] LABS: Alanine Aminotransferase 24 U/L (6-35); Albumin Level 4.5 g/dL (3.5-5.1); Alkaline Phosphatase 72 U/L (38-126); Anion Gap 10 mmol/L (8-16); Aspartate Amino Transferase 34 U/L (14-36); Bilirubin,Total 0.6 mg/dL (0.2-1.3); Blood Urea Nitrogen 20 mg/dL (7-17); Calcium 9.7 mg/dL (8.4-10.2); Carbon Dioxide 29 mmol/L (22-30); Chloride 97 mmol/L (98-107); Estimated CRCL calculation 31 ml/min; Estimated Glomerular Filt Rate 43; Glucose 123 mg/dL (65-110); Magnesium 1.8 mg/dL (1.6-2.3); Potassium 4.2 mmol/L (3.4-5.0); Sodium 136 mmol/L (137-145)
--- NOTE | 2022-02-07 16:50 | PM.IMHP ---
H&P: HPI History of Present Illness Date/Time: 02/07/22 16:50 Chief Complaint: Fall Narrative: 86-year-old female with past medical history significant for hypothyroidism, hypertension, hyperlipidemia, dementia, frequent falls, sick sinus syndrome with pacemaker implanted is presenting with another fall. Patient states that she was walking to the phone after she stood up from the couch and simply fell and sat down on a box on the ground. She states that her legs did not give out, she did not feel weak, she had no shortness of breath or sensation that she was going to fall, she simply fell. She denies losing consciousness. She did not have any lightheadedness, dizziness, weakness or chest pain, prior to the fall. Shortly after, her family took her out to breakfast before bringing her to the ER for evaluation. She states she was in her usual state of health prior to the fall. She denies any fevers, chills, nausea, vomiting or diarrhea. No headaches or vision changes. Of note, patient reports that she did have a fall a few days ago when she was in the shower and looked up and then fell to the right side, injuring her right ribs and hip. Again, the patient denies any symptoms prior to the fall that would trigger her that she was about to fall. She had no headache, vision changes, lightheadedness, dizziness, shortness of breath, chest pain, weakness, sensation of her legs giving out. She again denies losing consciousness. She states that she had an appointment with Cardiology earlier this month where they asked about her fall as well, she says she told them exactly what she told me and they were baffled. She states that her pacemaker was working well as of earlier this month. All imaging in the ER was negative for acute injury, including chest x-ray, hip and pelvis x-rays. Head CT also performed without any abnormalities noted. Lab work was essentially benign with a mild hyponatremia at 1:36 a.m., mild acute kidney injury with a creatinine of 1.2, baseline closer to 0.9. Urinalysis was negative for infection. Review of Systems Review of Systems: 12 point review of systems was assessed and was negative except as noted in the HPI [facility] Past Medical History Medical History Benign essential hypertension CKD (chronic kidney disease) Dementia Frequent falls Hearing difficulty Hyperlipidemia Hypothyroidism Pacemaker Sick sinus syndrome Syncope Surgical History Surgical History History of hip surgery Family History Family History Mother Family history of pancreatic cancer Father Acute myocardial infarction Social History Social History Smoking status: Never smoker Second hand tobacco smoke exposure: No Alcohol intake: never Substance use: never Meds Home Medications and Allergies Home Medications Medication Instructions Recorded Confirmed Type aspirin 81 mg tablet,delayed 81 mg PO DAILY 05/21/19 04/15/21 History release (Adult Low Dose Aspirin) calcium polycarbophil 625 mg 1,250 mg PO DAILY 05/21/19 04/15/21 History tablet (Fiber-Lax) cholecalciferol (vitamin D3) 50 2,000 unit PO DAILY 05/21/19 04/15/21 History mcg (2,000 unit) tablet lisinopril 30 mg tablet 30 mg PO BID 10/06/20 04/15/21 History spirometers and accessories #1 ea 09/30/21 09/30/21 Rx atorvastatin 20 mg tablet (Lipitor) 20 mg PO DAILY #90 tabs 10/30/21 Rx levothyroxine 100 mcg tablet 100 mcg PO DAILY #90 tabs 10/30/21 Rx (Synthroid) cyanocobalamin (vitamin B-12) 1,000 mcg PO DAILY 02/07/22 02/07/22 History 1,000 mcg tablet (Vitamin B-12) Allergies Allergy/AdvReac Type Severity Reaction Status Date / Time adhesive tape Allergy Severe BLISTERS, Verified 04/15/21 16:01 RED, SKIN BREAKDOWN c
[2022-02-07 17:45] LABS: Hemoglobin A1C 5.7 % (<5.7)
[2022-02-07 17:52] LABS: D Dimer 0.88 ug/mL (<0.48)
[2022-02-07 18:00] LABS: Troponin I 0.025 ng/mL (0.000-0.034)
--- NOTE | 2022-02-07 18:05 | ADMGEN ---
This patient, Israel Piña, was admitted to 3 [facility] Surg Room 305-01. Report received from LISA Kilpatrick. Patient/family oriented to hospital policies and general routines including ID bracelet, bed and alarms, visiting hours, pain management, procedures, bathroom and other care routines, personal items, smoking policy, room service/diet, and visiting hours. Information on how to activate the Rapid Response Team has been discussed. Patient/Family are encouraged to report perceived risks to care and to ask questions if they do not understand what they are told or what they should do.
[2022-02-07] MEDS: SODIUM CHLORIDE 0.9% IV 1,000 ML 75 ML IV CONT (18:24)
[2022-02-07 18:50] LABS: Folic Acid 7.2 ng/mL (2.76->20); Vitamin B12 > 1000.0 pg/mL (239-931)
[2022-02-07 20:14] LABS: Troponin I 0.026 ng/mL (0.000-0.034)
[2022-02-08] VITALS (14 sets, daily range): BP systolic 114–206; BP diastolic 51–78; PULSE 59–75; RESP 14–20; TEMP 36.6–37; O2SAT 95–99
--- NOTE | 2022-02-08 | ECHO_ITS ---
Patient Info Name: Israel Piña Age: 86 years : 1935 Gender: Female Ht: 62 in Wt: 192 lbs BSA: 1.99 m2 HR: 71 bpm BP: 187 / 65 mmHg Heart Rhythm: Sinus Rhythm Technical Quality: Fair Exam Date: 02/08/2022 9:42 AM Exam Location: [facility] Pulmonary Patient Status: Outpatient Admit Date: 02/07/2022 Staff Ordering Physician: Yvonne Rogel DO [employer] Technical Officer: Michelle Shelley RDCS Attending Provider: Hernandez Mason MD Referring Physician: Pebbles ARAGON; Exam Type: CA echo doppler color flow Study Info Indications R55 - Syncope and collapse Complete two-dimensional, color flow and Doppler transthoracic echocardiogram is performed. Summary 1. Complete two-dimensional, color flow and Doppler transthoracic echocardiogram is performed. 2. Left ventricular systolic function is hyperdynamic, estimated at >70%. 3. Left ventricular chamber dimension is normal. 4. Linear artifact in right ventricle suggestive of catheter(s), pacemaker lead(s), or ICD lead(s). 5. Trivial mitral regurgitation otherwise no valvular dysfunction. Left Ventricle Left ventricular chamber dimension is normal. Left ventricular systolic function is hyperdynamic, estimated at >70%. The left ventricular diastolic function is grade I diastolic dysfunction. Right Ventricle Right ventricular chamber dimension is normal. Linear artifact in right ventricle suggestive of catheter(s), pacemaker lead(s), or ICD lead(s). Left Atria Left atrial chamber dimension is normal. Right Atria Right atrial chamber dimension is normal. Aortic Valve The aortic valve is trileaflet. There is mild aortic valve sclerosis. Pulmonic Valve The pulmonic valve is normal. Mitral Valve The mitral valve has normal leaflets. Tricuspid Valve The tricuspid valve leaflets are normal. Pericardium/Pleural The pericardium appears normal. Aorta The aortic root size at the sinus of Valsalva is normal. Left Ventricular Outflow Tract Name Value Normal LVOT 2D LVOT Diameter 2.0 cm LVOT Doppler LVOT Peak Gradient 4 mmHg LVOT Mean Gradient 2 mmHg LVOT VTI 25 cm LVOT VTI/AV VTI Ratio 0.8 LVOT Stroke Volume 79 ml LVOT CO 4.9 l/min LVOT CI 2.5 l/min/m2 Pulmonic Valve Name Value Normal RVOT Doppler RVOT Peak Gradient 3 mmHg PV Doppler PV Peak Gradient 4 mmHg Mitral Valve Name Value Normal
--- NOTE | 2022-02-08 05:00 | ECG_ITS ---
Measurements Intervals [place] Rate: 62 P: -78 WA: 310 QRS: -65 QRSD: 145 T: 25 QT: 420 QTc: 428 Interpretive Statements ELECTRONIC ATRIAL PACEMAKER RIGHT BUNDLE BRANCH BLOCK [120+ ms QRS DURATION, UPRIGHT V1, 40+ ms S IN I/aVL/V4/V5/V6] LEFT ANTERIOR FASCICULAR BLOCK [QRS AXIS <= -45, QR IN I, RS IN II] COMPARED TO ECG 09/14/2021 08:58:21 ATRIAL PACING DEMONSTRATED NO OTHER CHANGE Electronically Signed On 02-08-2022 13:55:18 CDT by Mikhail Patiño M.D.
[2022-02-08] MEDS: LEVOTHYROXINE SODIUM 100 MCG TABLET PO (05:36)
[2022-02-08 06:45] LABS: Basophils Absolute Auto 0.1 K/mm3 (0.0-0.1); Basophils Percent Auto 0.8 % (0.2-1.2); Eosinophils Absolute Auto 0.3 K/mm3 (0-0.3); Eosinophils Percent Auto 4.1 % (0-4.4); Hematocrit 36.6 % (37.0-47.0); Hemoglobin 12.3 g/dL (12.0-15.0); Immature Granulocyte Absolute 0.03 K/mm3 (0.00-0.031); Immature Granulocyte Percent A 0.4 % (0-0.5); Immature Platelet Fraction Pct 6.9 % (0.9-11.2); Lymphocytes Absolute Auto 2.44 K/mm3 (0.9-3.2); Lymphocytes Percent Auto 29.3 % (18.3-44.2); Mean Corpuscular HGB Conc 33.6 g/dl (32-36); Mean Corpuscular Hemoglobin 31.4 pg (26-34); Mean Corpuscular Volume 93.4 fl (80-100); Mean Platelet Volume 11.4 fl (7.4-10.4); Monocytes Absolute Auto 0.6 K/mm3 (0.1-0.6); Monocytes Percent Auto 6.9 % (2.6-8.5); Neutrophils Absolute Auto 4.9 K/mm3 (1.3-6.7); Neutrophils Percent Auto 58.5 % (45.5-73.1); Platelet Count Result 178 k/mm3 (150-375); Red Blood Count 3.92 M/mm3 (4.2-5.4); Red Cell Distribution Width 13.3 % (11.5-14.5); White Blood Count 8.3 K/mm3 (4.5-10.0)
[2022-02-08 06:47] LABS: Alanine Aminotransferase 21 U/L (6-35); Alkaline Phosphatase 66 U/L (38-126); Anion Gap 5 mmol/L (8-16); Aspartate Amino Transferase 28 U/L (14-36); Bilirubin,Total 0.6 mg/dL (0.2-1.3); Blood Urea Nitrogen 19 mg/dL (7-17); Carbon Dioxide 26 mmol/L (22-30); Chloride 103 mmol/L (98-107); Cholesterol 158 mg/dL (0-200); Estimated CRCL calculation 37 ml/min; Estimated Glomerular Filt Rate 53; Glucose 109 mg/dL (65-110); HDL Direct 52 mg/dL; Potassium 4.1 mmol/L (3.4-5.0); Sodium 134 mmol/L (137-145); Triglycerides 103 mg/dL (<150)
[2022-02-08 06:58] LABS: LDL Cholesterol Direct 70 mg/dL
[2022-02-08] MEDS: ATORVASTATIN 20 MG TABLET PO (08:54)
[2022-02-08] MEDS: calcium polycarbophiL 625 MG TABLET PO (08:54)
[2022-02-08] MEDS: CYANOCOBALAMIN 1,000 MCG TABLET 1000 MCG PO (08:54)
[2022-02-08] MEDS: ASPIRIN 81 MG ENTERIC TABLET PO (08:54)
[2022-02-08] MEDS: CHOLECALCIFEROL 1,000 UNITS TABLET 2000 UNITS PO (08:54)
[2022-02-08] MEDS: SODIUM CHLORIDE 0.9% IV 1,000 ML 75 ML IV CONT (08:55)
[2022-02-08 12:03] LABS: Vitamin D 25 Hydroxy 62.8 ng/mL
--- NOTE | 2022-02-08 12:52 | PM.CNCAR ---
Assessment and Plan Assessment and plan (1) Falls frequently: Code(s): R29.6 - Repeated falls Status: Acute Plan This is an 86-year-old lady with propensity for falling recently. On the history I obtained for her recently in the office and again this morning it does not appear to me that she is experiencing loss of consciousness. She is falling for some other reason. Her pacemaker is chronically implanted it is functioning normally. Therefore we do not need to be concerned that she is having Farhat arrhythmias or pauses. At this time I do not have any additional cardiac suggestions/recommendations Mikhail Patiño MD [facility] History of Present Illness History of Present Illness Consult date/time: 02/08/22 12:52 Reason For Visit: syncope,falls Narrative: This is an 86-year-old woman with a history of sick sinus syndrome who I aware of her case as I follow her with pacemaker implantation in the past. She has been having problems with falling lately and came to the hospital yesterday after an episode of recurrent falling earlier in the day after she was discussing these is situations with her family. Yesterday morning she states she was in her usual state of health when she got up out of a chair in her kitchen she suddenly felt herself falling backwards she fell to the floor she did not strike her head on the floor she was able to get up and call family. They were discussing this later in the day and decided to bring her to the emergency room for further evaluation. She is not symptomatic with anything when she arrived in the emergency room. Her ECG shows an atrially paced rhythm with normal intraventricular conduction and we are asked to see her in consultation. She has a history of sick sinus syndrome with a chronically implanted [employer] dual-chamber pacing system. Her initial device was implanted in February of 2010 and in routine follow-up in the office was found to be at [place] resulting in the need for me to do her generator change in March of 2021. The device is being followed in the office and is functioning normally. I just saw this patient in the office on 01/28/2022 at which time she did not have any cardiac complaints but she was relating that the tendency to fall. She is clear that she is not losing consciousness when she is falling she is aware of what is going on. Her pacemaker was checked on that date in the office and is functioning normally. As such there is no reason to be concerned about pauses or symptomatic Farhat arrhythmias in my opinion. She has a history of episodes of chest pain in the past but has had 2 previous coronary angiograms demonstrating non diseased coronary arteries. She feels well this afternoon she is supine in bed watching television does not have any active complaints. Her vital signs demonstrate her to be hyper hypertensive and not orthostatic Review of Systems Constitutional: Constitutional: Reports no additional constitutional complaints Eyes: Eyes: Reports no additional eye complaints ENT: Reports system reviewed and no additional complaints, except as documented Cardiovascular: Cardiovascular: Reports no additional cardiovascular complaints Respiratory: Respiratory: Reports no additional respiratory complaints Gastrointestinal: Gastrointestinal: Reports no additional gastrointestinal complaints Musculoskeletal: Comments: Some soreness in the right lateral ribcage from a recent fall Integumentary/Breasts: Skin/Breast: Reports system reviewed and no additional complaints, except as docu Neurologic: Comments: Falling as described above Endocrine: Endocrine: Reports no additional endocrine complaints Hematologic/Lymphatic: Hematologic/Lymphatic: Reports no additional hematologic/lymphatic complaints Allergic/Immunologic: Allergic/Immunologic: Reports no additional allergic/immunologic complaints [facility] Past Medical History Medical History (Updated 02/07/22 @ 19:1
--- NOTE | 2022-02-08 15:18 | PM.IMPN ---
Progress Note: A&P Assessment and Plan (1) Syncope: Code(s): R55 - Syncope and collapse Status: Acute Assessment and Plan: Differential includes arrhythmia versus neurocardiogenic syncope versus seizure versus orthostatic hypotension ...? Check echo, D-dimer, carotid ultrasound, consult Cardiology Consult Neurology, unable to get MRI, consider CTA head and neck (2) Sick sinus syndrome: Code(s): I49.5 - Sick sinus syndrome Status: Acute Assessment and Plan: Monitor telemetry, trend troponin, check EKG now and again in the morning (3) Pacemaker: Code(s): Z95.0 - Presence of cardiac pacemaker Status: Acute Assessment and Plan: Appreciate cardiology consultation, do not think cardiac etiology to her falls (4) Frequent falls: Code(s): R29.6 - Repeated falls Status: Acute Assessment and Plan: Appreciate PT/OT consultation, recommended home health care All labs within normal limits (5) CKD (chronic kidney disease): Code(s): N18.9 - Chronic kidney disease, unspecified Status: Acute Assessment and Plan: Improved on IV fluids, DC for today (6) Hypothyroidism: Code(s): E03.9 - Hypothyroidism, unspecified Status: Acute Assessment and Plan: Check TSH, continue home levothyroxine (7) Hyperlipidemia: Code(s): E78.5 - Hyperlipidemia, unspecified Status: Acute Assessment and Plan: Check lipid panel, continue statin (8) Benign essential hypertension: Code(s): I10 - Essential (primary) hypertension Status: Acute Assessment and Plan: Check orthostatic blood pressure, hold home blood pressure medication (lisinopril) for now (9) Dementia: Code(s): F03.90 - Unspecified dementia, unspecified severity, without behavioral disturbance, psychotic disturbance, mood disturbance, and anxiety Status: Acute Assessment and Plan: Consider starting patient on Namenda versus Aricept, will defer decision to outpatient PCP Plan DVT prophylaxis with SCDs GI prophylaxis not indicated Code status full code Subjective Date/time seen: 02/08/22 15:18 Interval history: No overnight events noted. No chest pain or shortness of breath. No nausea, vomiting or diarrhea. No fevers or chills. Patient has not had any falls while here. Review of Systems Review of Systems: 12 point review of systems was assessed and was negative except as noted in the HPI Exam Narrative: General: No acute distress, alert and oriented per baseline HEENT: Atraumatic, normocephalic, mucous membranes moist CV: Regular rate and rhythm, S1, S2 Lungs: Clear to auscultation bilaterally, no rales or crackles noted, no wheezes, good air entry Abdomen: Soft, nontender, nondistended Extremities: Normal to inspection Skin: No rashes noted, no lesions or wounds seen Psych: Euthymic, normal affect Objective Data Vital Signs Vital Signs: Vital Signs - 24 hr 02/07/22 16:10 02/07/22 22:00 02/07/22 22:02 Temperature Pulse Rate 63 64 67 Respiratory Rate 18 Blood Pressure 156/57 H 187/70 H 198/60 H Pulse Oximetry 99 Oxygen Delivery 02/07/22 22:04 02/07/22 22:00 02/07/22 23:37 Temperature 97.7 F Pulse Rate 79 64 Respiratory Rate 18 Blood Pressure 169/59 H 187/70 H Pulse Oximetry 100 95 Oxygen Delivery Room Air 02/07/22 20:48 02/07/22 20:00 02/08/22 00:00 Temperature Pulse Rate 61 66 Respiratory Rate Blood Pressure Pulse Oximetry Oxygen Delivery Room Air 02/08/22 04:00 02/08/22 06:00 02/08/22 08:00 Temperature 98.0 F Pulse Rate 71 75 63 Respiratory Rate 18 Blood Pressure 187/65 H Pulse Oximetry 95 Oxygen Delivery 02/08/22 13:18 02/08/22 08:00 02/08/22 08:05 Temperature Pulse Rate Respiratory Rate Blood Pressure 173/54 H 114/78 Pulse Oximetry Oxygen Delivery Room Air 02/08/22 08:10 02/08/22 14:00
--- NOTE | 2022-02-08 15:45 | WPDNEURCNPN ---
Assessment and Plan Assessment and plan (1) Syncope: Code(s): R55 - Syncope and collapse Status: Acute (2) Dementia: Code(s): F03.90 - Unspecified dementia, unspecified severity, without behavioral disturbance, psychotic disturbance, mood disturbance, and anxiety Status: Acute (3) Delayed orthostatic hypotension: Code(s): I95.1 - Orthostatic hypotension Status: Acute Plan 1 recurrent falls most likely orthostatic 2 cardiological etiologies have already been ruled out and 3 CT scan of the head is normal, she has had CT scan of the cervical spine in August of this year there was no evidence of cervical stenosis to consider the possibility of cervical myelopathy will need to check the blood pressure in supine and upright several times during the hospitalization had Consult date: 02/08/22 HPI: Israel Piña is a 86 year old femaleAdmitted to the hospitalThrough the emergency room after having had multiple falls most recently she was in the shower looked up and fell to the right side injuring her right side and her right hip at that time she was not evaluated by the physician on the day of admission this time she went to answer the phone is stood up from the couch walked approximately 4ft and fell to the ground she did not feel lightheaded or dizzy did not feel weak all over but she was completely unaware that she was going to fall he did wake up on the ground she went out with the family for the breakfast and then they brought her to the emergency room for further evaluation her outpatient medications include lisinopril 30mg b.i.d. aspirin 81mg daily she has multiple allergies as documented she has ongoing history of hypertension, chronic kidney disease, dementia, multiple falls, hearing difficulties and pacemaker in addition to sick sinus syndrome and vitamin B12 deficiency she has never smoker or alcohol drinker, she has been seen by the soil sampler already where she has been seen recently in the office her pacemaker is chronically implanted and is functionally normal device is being followed in the office and functionally normal he was seen in the cardiology office in January of this year he does not become unconscious and recently when her pacemaker was checked he has a functionally new Review of Systems Review of Systems: All systems reviewed & are unremarkable except as noted in HPI and below [facility] Past Medical History Medical History (Updated 02/08/22 @ 15:58 by Kiet Lozada MD) Benign essential hypertension CKD (chronic kidney disease) Constipation, chronic Dementia Elevated fasting glucose Family history of cancer Frequent falls Hearing difficulty Hyperlipidemia Hyperlipidemia, acquired Hypothyroidism Pacemaker Secondhand smoke exposure Sick sinus syndrome Syncope Vitamin B12 deficiency Surgical History Surgical History History of hip surgery Family History Family History Mother Family history of pancreatic cancer Father Acute myocardial infarction Social History Social History Smoking status: Never smoker Second hand tobacco smoke exposure: No Alcohol intake: never Substance use: never Spiritual care concerns: No Meds Home Medications and Allergies Home Medications Medication Instructions Recorded Confirmed Type aspirin 81 mg tablet,delayed 81 mg PO DAILY 05/21/19 02/07/22 History release (Adult Low Dose Aspirin) calcium polycarbophil 625 mg 625 mg PO DAILY 05/21/19 02/07/22 History tablet (Fiber-Lax) cholecalciferol (vitamin D3) 50 2,000 unit PO DAILY 05/21/19 02/07/22 History mcg (2,000 unit) tablet lisinopril 30 mg tablet 30 mg PO BID 10/06/20 02/07/22 History spirometers and accessories #1 ea 09/30/21 02/07/22 Rx atorvastatin 20 mg tablet (Lipitor) 20 mg PO DAILY #90 tabs
[2022-02-09] VITALS (8 sets, daily range): BP systolic 153–175; BP diastolic 51–70; PULSE 60–66; RESP 14–16; TEMP 36.2–36.4; O2SAT 97–99
[2022-02-09 02:39] LABS: SARS-CoV-2 RNA PCR Negative
[2022-02-09] MEDS: LEVOTHYROXINE SODIUM 100 MCG TABLET PO (05:27)
[2022-02-09 06:15] LABS: Basophils Absolute Auto 0.1 K/mm3 (0.0-0.1); Basophils Percent Auto 0.6 % (0.2-1.2); Eosinophils Absolute Auto 0.4 K/mm3 (0-0.3); Eosinophils Percent Auto 5.1 % (0-4.4); Hematocrit 33.9 % (37.0-47.0); Hemoglobin 11.6 g/dL (12.0-15.0); Immature Granulocyte Absolute 0.02 K/mm3 (0.00-0.031); Immature Granulocyte Percent A 0.3 % (0-0.5); Lymphocytes Absolute Auto 1.87 K/mm3 (0.9-3.2); Lymphocytes Percent Auto 23.7 % (18.3-44.2); Mean Corpuscular HGB Conc 34.2 g/dl (32-36); Mean Corpuscular Volume 90.6 fl (80-100); Mean Platelet Volume 10.4 fl (7.4-10.4); Monocytes Absolute Auto 0.7 K/mm3 (0.1-0.6); Neutrophils Absolute Auto 4.8 K/mm3 (1.3-6.7); Neutrophils Percent Auto 61.3 % (45.5-73.1); Platelet Count Result 165 k/mm3 (150-375); Red Blood Count 3.74 M/mm3 (4.2-5.4); Red Cell Distribution Width 13.2 % (11.5-14.5); White Blood Count 7.9 K/mm3 (4.5-10.0)
[2022-02-09 06:31] LABS: Alanine Aminotransferase 18 U/L (6-35); Albumin Level 3.6 g/dL (3.5-5.1); Alkaline Phosphatase 58 U/L (38-126); Anion Gap 9 mmol/L (8-16); Aspartate Amino Transferase 23 U/L (14-36); Bilirubin,Total 0.6 mg/dL (0.2-1.3); Blood Urea Nitrogen 17 mg/dL (7-17); Carbon Dioxide 27 mmol/L (22-30); Chloride 100 mmol/L (98-107); Estimated CRCL calculation 40 ml/min; Estimated Glomerular Filt Rate 59; Glucose 106 mg/dL (65-110); Potassium 3.8 mmol/L (3.4-5.0); Sodium 136 mmol/L (137-145)
[2022-02-09] MEDS: ASPIRIN 81 MG ENTERIC TABLET PO (09:43)
[2022-02-09] MEDS: CYANOCOBALAMIN 1,000 MCG TABLET 1000 MCG PO (09:43)
[2022-02-09] MEDS: calcium polycarbophiL 625 MG TABLET PO (09:43)
[2022-02-09] MEDS: CHOLECALCIFEROL 1,000 UNITS TABLET 2000 UNITS PO (09:43)
[2022-02-09] MEDS: ATORVASTATIN 20 MG TABLET PO (09:43)
--- NOTE | 2022-02-09 13:01 | PM.DS ---
DS: Admitting Diagnosis Discharge Date February 09, 2022 Admitting Diagnosis Fall DS: Discharge Diagnosis Discharge Diagnosis (1) Syncope: Code(s): R55 - Syncope and collapse Status: Acute Assessment and Plan: Cardiology and Neurology consultations found no etiology to explain her symptoms (2) Sick sinus syndrome: Code(s): I49.5 - Sick sinus syndrome Status: Acute Assessment and Plan: Stable (3) Pacemaker: Code(s): Z95.0 - Presence of cardiac pacemaker Status: Acute Assessment and Plan: Stable (4) Frequent falls: Code(s): R29.6 - Repeated falls Status: Acute Assessment and Plan: Appreciate PT/OT consultation, recommended home health care All labs within normal limits (5) CKD (chronic kidney disease): Code(s): N18.9 - Chronic kidney disease, unspecified Status: Acute Assessment and Plan: Improved on IV fluids, DC Stable on p.o. fluids (6) Hypothyroidism: Code(s): E03.9 - Hypothyroidism, unspecified Status: Acute Assessment and Plan: TSH WNL, continue home levothyroxine (7) Hyperlipidemia: Code(s): E78.5 - Hyperlipidemia, unspecified Status: Acute Assessment and Plan: Continue statin (8) Benign essential hypertension: Code(s): I10 - Essential (primary) hypertension Status: Acute Assessment and Plan: Orthostatics within normal limits Patient does have a extremely wide pulse pressure, will discontinue lisinopril and try Norvasc 5 mg daily (9) Dementia: Code(s): F03.90 - Unspecified dementia, unspecified severity, without behavioral disturbance, psychotic disturbance, mood disturbance, and anxiety Status: Acute Assessment and Plan: Consider starting patient on Namenda versus Aricept, will defer decision to outpatient PCP Plan DVT prophylaxis with SCDs GI prophylaxis not indicated Code status full code DS: Summary Hospital Course Hospital Course: 86-year-old female with past medical history significant for hypothyroidism, hypertension, hyperlipidemia, dementia, frequent falls, sick sinus syndrome with pacemaker implanted is presenting with another fall.? Patient states that she was walking to the phone after she stood up from the couch and simply fell and sat down on a box on the ground.? She states that her legs did not give out, she did not feel weak, she had no shortness of breath or sensation that she was going to fall, she simply fell.? She denies losing consciousness. She did not have any lightheadedness, dizziness, weakness or chest pain, prior to the fall. ? Shortly after, her family took her out to breakfast before bringing her to the ER for evaluation.? She states she was in her usual state of health prior to the fall.? She denies any fevers, chills, nausea, vomiting or diarrhea.? No headaches or vision changes. Of note, patient reports that she did have a fall a few days ago when she was in the shower and looked up and then fell to the right side, injuring her right ribs and hip.? Again, the patient denies any symptoms prior to the fall that would trigger her that she was about to fall.? She had no headache, vision changes, lightheadedness, dizziness, shortness of breath, chest pain, weakness, sensation of her legs giving out.? She again denies losing consciousness. She states that she had an appointment with Cardiology earlier this month where they asked about her fall as well, she says she told them exactly what she told me and they were baffled.? She states that her pacemaker was working well as of earlier this month. All imaging in the ER was negative for acute injury, including chest x-ray, hip and pelvis x-rays.? Head CT also performed without any abnormalities noted.? Lab work was essentially benign with a mild hyponatremia at 1:36 a.m., mild acute kidney injury with a creatinine of 1.2, baseline closer to 0.9.? Urinalysis was negative for
[2022-02-09] MEDS: amLODIPine BESYLATE 5 MG TABLET PO (16:28)
== END 2022-02-09 17:30 | disposition home health service (06) ==
LOC: ANHED 12:04 → ANH3MEDSUR 16:56
PROVIDERS: Internal Medicine; Admitting Provider Student in an Organized Health Care Education/Training Program; Emergency Provider Emergency Medicine; PCP Family Medicine; Visit Provider Student in an Organized Health Care Education/Training Program
DX: R55 Syncope and collapse (principal); I49.5 Sick sinus syndrome; Z95.0 Presence of cardiac pacemaker; R29.6 Repeated falls; I13.0 Hypertensive heart and chronic kidney disease with heart failure and stage 1 through stage 4 chronic kidney disease, or unspecified chronic kidney disease; E11.22 Type 2 diabetes mellitus with diabetic chronic kidney disease; I50.20 Unspecified systolic (congestive) heart failure; N18.9 Chronic kidney disease, unspecified; E03.9 Hypothyroidism, unspecified; E78.5 Hyperlipidemia, unspecified; F03.90 Unspecified dementia, unspecified severity, without behavioral disturbance, psychotic disturbance, mood disturbance, and anxiety; I45.2 Bifascicular block; Z20.822 Contact with and (suspected) exposure to COVID-19; E66.3 Overweight; Z68.35 Body mass index [BMI] 35.0-35.9, adult; M25.551 Pain in right hip; R07.89 Other chest pain; Z77.22 Contact with and (suspected) exposure to environmental tobacco smoke (acute) (chronic); E53.8 Deficiency of other specified B group vitamins; R79.1 Abnormal coagulation profile; R90.82 White matter disease, unspecified; Z96.641 Presence of right artificial hip joint; Z79.82 Long term (current) use of aspirin; Z79.899 Other long term (current) drug therapy
CPT/HCPCS: 36415; 70450; 71046; 73502; 80053; 80061; 81003; 82306; 82607; 82746; 83036; 83735; 84443; 84484; 85025; 85055; 85380; 93005; 93306; 93880; 94762; 97161; 97165; 99285; A9270; C9803; G0378; J7030; U0003; U0005

== ENCOUNTER 2022-03-14 11:08 | Emergency (ER) | payer MEDICARE, BC, SELFPAY ==
--- NOTE | ~2022-03-14 | XR_ITS ---
EXAMINATION: XR chest 2V DATE: 03/14/2022 11:52 INDICATION: Cough and congestion TECHNIQUE: frontal and lateral views of the chest were obtained. COMPARISON: Chest radiograph dated 02/07/2022 FINDINGS: Calcified nodules in the left lower lung zone consistent with old granulomatous disease. No other air space opacities, pulmonary edema, pleural effusion or pneumothorax. The cardiomediastinal silhouette is normal. Dual lead pacemaker seen with leads projecting over the expected locations of the right at rium and right ventricle. Cholecystectomy clips in right upper quadrant. Mild thoracolumbar levocurva ture with mild spondylosis. IMPRESSION: 1. No acute cardiopulmonary disease. Reviewed, dictated and finalized at location A. [facility]
[2022-03-14 11:10] VITALS: BP 174/65; PULSE 87; RESP 20; TEMP 36.7; O2SAT 95
[2022-03-14 11:57] VITALS: O2SAT 97
[2022-03-14 12:01] VITALS: BP 135/55; PULSE 60; RESP 18; O2SAT 96
--- NOTE | 2022-03-14 12:16 | ED.GENADULT ---
HPI - General Adult General Chief complaint: Upper Respiratory Infection Stated complaint: URI - congestion, cough, body aches Time Seen by Provider: 03/14/22 11:52 History of Present Illness HPI narrative: 86-year-old female presenting to the emergency department for evaluation of cough and fatigue that has been ongoing for 1 week. Patient denies any associate shortness breath. Patient denies any recent fevers Patient does have a history of sick sinus syndrome does have a pacemaker and had a recent admission for frequent falls and syncope. Related Data Home Medications Medication Instructions Recorded Confirmed aspirin 81 mg tablet,delayed 81 mg PO DAILY 05/21/19 02/07/22 release (Adult Low Dose Aspirin) calcium polycarbophil 625 mg 625 mg PO DAILY 05/21/19 02/07/22 tablet (Fiber-Lax) cholecalciferol (vitamin D3) 50 2,000 unit PO DAILY 05/21/19 02/07/22 mcg (2,000 unit) tablet cyanocobalamin (vitamin B-12) 1,000 mcg PO DAILY 02/07/22 02/07/22 1,000 mcg tablet (Vitamin B-12) Allergies Allergy/AdvReac Type Severity Reaction Status Date / Time adhesive tape Allergy Severe BLISTERS, Verified 03/14/22 12:02 RED, SKIN BREAKDOWN celecoxib Allergy Unknown Agitated Verified 03/14/22 12:02 diclofenac Allergy Unknown Redness of Verified 03/14/22 12:02 Skin levofloxacin Allergy Unknown Unknown Verified 03/14/22 12:02 mirabegron Allergy Unknown Unknown Verified 03/14/22 12:02 pneumococcal vaccine Allergy Unknown Unknown Verified 03/14/22 12:02 Quinolones Allergy Unknown Unknown Verified 03/14/22 12:02 hydrochlorothiazide Allergy low sodium Verified 03/14/22 12:02 Influenza Virus Vaccines Allergy Unknown Verified 03/14/22 12:02 metoprolol Allergy Unknown Verified 03/14/22 12:02 DICLOFENAC SODIUM Allergy Mild Nausea Uncoded 03/14/22 12:02 Review of Systems Review of Systems: CONSTITUTIONAL: Denies fever, chills, or sweats. EYES: Denies visual changes, redness, or discharge. ENT: Denies rhinorrhea, congestion, sore throat, or otalgia. CARDIOVASCULAR: Denies chest pain, palpitations, or edema. RESPIRATORY: See HPI GASTROINTESTINAL: Denies abdominal pain, nausea, vomiting, or diarrhea. GENITOURINARY: Denies dysuria or hematuria. SKIN: Denies rash or itching. MUSCULOSKELETAL: Denies back pain, joint pain, or myalgia. NEUROLOGIC: Denies headache, numbness, or weakness. [facility] Past Medical History Medical History (Updated 03/14/22 @ 13:42 by Jack Morocho MD) Benign essential hypertension CKD (chronic kidney disease) Constipation, chronic Dementia Elevated fasting glucose Family history of cancer Frequent falls Hearing difficulty Hyperlipidemia Hyperlipidemia, acquired Hypothyroidism Pacemaker Secondhand smoke exposure Sick sinus syndrome Syncope Vitamin B12 deficiency Surgical History Surgical History History of hip surgery Family History Family History Mother Family history of pancreatic cancer Father Acute myocardial infarction Social History Social History Smoking status: Never smoker Second hand tobacco smoke exposure: No Alcohol intake: never Substance use: never Spiritual care concerns: No Exam Narrative: APPEARANCE: Well appearing, no pain, no distress, well-nourished. HEAD: normocephalic, atraumatic. EYES: PERRLA/EOMI, conjunctivae clear. NOSE: Normal no drainage NECK: Supple. No adenopathy, no masses. RESPIRATORY: Airway patent, respirations nonlabored. Rhonchi in lower lobes CARDIOVASCULAR: Regular rate and rhythm without murmurs rubs or gallops. ABDOMINAL: Soft, nontender, nondistended, normal bowel sounds MUSCULOSKELETAL: Moves all extremities. Strength/ROM intact, No edema, No calf tenderness. NEURO: Alert. Cranial nerves II through XII intact. Good gait. Good coordination SKIN: Warm, dry.
[2022-03-14 12:55] LABS: Influenza A QL RT-PCR Negative (Negative); Influenza B QL RT-PCR Negative (Negative); SARS-CoV-2 RNA PCR Negative
[2022-03-14] MEDS: AZITHROMYCIN 250 MG TABLET 500 MG PO (13:43)
[2022-03-14 13:45] VITALS: BP 150/56; PULSE 65; RESP 18; O2SAT 99
== END 2022-03-14 13:51 | disposition home or self-care (01) ==
PROVIDERS: Emergency Provider Emergency Medicine; PCP Family Medicine
DX: J18.9 Pneumonia, unspecified organism (principal); Z20.822 Contact with and (suspected) exposure to COVID-19; I12.9 Hypertensive chronic kidney disease with stage 1 through stage 4 chronic kidney disease, or unspecified chronic kidney disease; N18.9 Chronic kidney disease, unspecified; F03.90 Unspecified dementia, unspecified severity, without behavioral disturbance, psychotic disturbance, mood disturbance, and anxiety; E78.5 Hyperlipidemia, unspecified; E03.9 Hypothyroidism, unspecified; I49.5 Sick sinus syndrome; E55.9 Vitamin D deficiency, unspecified; Z95.0 Presence of cardiac pacemaker; Z77.22 Contact with and (suspected) exposure to environmental tobacco smoke (acute) (chronic); Z79.82 Long term (current) use of aspirin
CPT/HCPCS: 71046; 87636; 99283; A9270

== ENCOUNTER 2022-03-23 19:49 | Emergency (ER) | payer MEDICARE, BC, SELFPAY ==
--- NOTE | ~2022-03-23 | XR_ITS ---
EXAMINATION: XR abdomen/kub 1V DATE: 03/23/2022 23:36 INDICATION: Constipation. TECHNIQUE: A supine view of the abdomen on 2 radiographs was obtained. COMPARISON: CT abdomen and pelvis 12/25/2013 FINDINGS: The small bowel is normal in caliber. There is a large volume of stool in the colon without distention of the rectum. Surgical clips in the right upper quadrant are likely from cholecystectomy . There is a bipolar left hip hemiarthroplasty. IMPRESSION: 1. Large volume of stool in the colon with distention of the rectum. Reviewed, dictated and finalized at location A. [employer] [facility]
[2022-03-23 19:53] VITALS: BP 158/54; PULSE 68; RESP 18; TEMP 36.4; O2SAT 100
--- NOTE | 2022-03-24 00:05 | ED.GENADULT ---
HPI - General Adult General Chief complaint: Unspecified Stated complaint: constipated Time Seen by Provider: 03/23/22 23:41 Source: patient and family Mode of arrival: ambulatory Limitations: no limitations History of Present Illness HPI narrative: Patient is an 86-year-old female with a history of syncope and collapse, sick sinus syndrome, frequent falls, hypertension, hyperlipidemia, chronic constipation, presenting to the emergency department for evaluation of constipation. Patient states that she had to strain to have a bowel movement today, but did have a bowel movement. She denies dark or tarry stool, she denies rectal pain. Patient denies fever, chills, nausea, vomiting. She denies any current abdominal pain or cramping. She has been tolerating oral intake without worsening of symptoms. Patient usually tries to increase her intake of fruits and juices when she has constipation issues which has been chronic for her patient is present with her granddaughter who is a MedSurg nurse at this facility. She states that often the patient will refuse to take MiraLAX or use Fleet enemas at home. And daughter has not noticed any behavioral changes, no other concerning symptoms noticed. Patient has been compliant with her medications, was recently seen in this facility for evaluation of cough and diagnosed with pneumonia, did finish that antibiotic. Related Data Home Medications Medication Instructions Recorded Confirmed aspirin 81 mg tablet,delayed 81 mg PO DAILY 05/21/19 02/07/22 release (Adult Low Dose Aspirin) calcium polycarbophil 625 mg 625 mg PO DAILY 05/21/19 02/07/22 tablet (Fiber-Lax) cholecalciferol (vitamin D3) 50 2,000 unit PO DAILY 05/21/19 02/07/22 mcg (2,000 unit) tablet cyanocobalamin (vitamin B-12) 1,000 mcg PO DAILY 02/07/22 02/07/22 1,000 mcg tablet (Vitamin B-12) Allergies Allergy/AdvReac Type Severity Reaction Status Date / Time adhesive tape Allergy Severe BLISTERS, Verified 03/14/22 12:02 RED, SKIN BREAKDOWN celecoxib Allergy Unknown Agitated Verified 03/14/22 12:02 diclofenac Allergy Unknown Redness of Verified 03/14/22 12:02 Skin levofloxacin Allergy Unknown Unknown Verified 03/14/22 12:02 mirabegron Allergy Unknown Unknown Verified 03/14/22 12:02 pneumococcal vaccine Allergy Unknown Unknown Verified 03/14/22 12:02 Quinolones Allergy Unknown Unknown Verified 03/14/22 12:02 hydrochlorothiazide Allergy low sodium Verified 03/14/22 12:02 Influenza Virus Vaccines Allergy Unknown Verified 03/14/22 12:02 metoprolol Allergy Unknown Verified 03/14/22 12:02 DICLOFENAC SODIUM Allergy Mild Nausea Uncoded 03/14/22 12:02 Review of Systems Review of Systems: CONSTITUTIONAL: Denies fever, chills, or sweats. ENT: Denies rhinorrhea, congestion, sore throat, or otalgia. CARDIOVASCULAR: Denies chest pain, palpitations, or edema. RESPIRATORY: Denies cough or dyspnea. GASTROINTESTINAL: Denies abdominal pain, nausea, vomiting, or diarrhea. Reports constipation. GENITOURINARY: Denies dysuria or hematuria. SKIN: Denies rash or itching. MUSCULOSKELETAL: Denies back pain, joint pain, or myalgia. NEUROLOGIC: Denies headache, numbness, or weakness. [facility] Past Medical History Medical History Benign essential hypertension CKD (chronic kidney disease) Constipation, chronic Dementia Elevated fasting glucose Family history of cancer Frequent falls Hearing difficulty Hyperlipidemia Hyperlipidemia, acquired Hypothyroidism Pacemaker Secondhand smoke exposure Sick sinus syndrome Syncope Vitamin B12 deficiency Surgical History Surgical History History of hip surgery Family History Family History Mother Family history of pancreatic cancer Father Acute myocardial infarction Social History Social History (Reviewed 03/24/22 @
[2022-03-24 00:20] VITALS: BP 188/68; PULSE 74; RESP 16; TEMP 36.8; O2SAT 100
[2022-03-24 00:53] VITALS: BP 174/70; PULSE 76; RESP 16; O2SAT 98
== END 2022-03-24 01:02 | disposition home or self-care (01) ==
PROVIDERS: Emergency Provider Emergency Medicine; PCP Family Medicine
DX: K59.09 Other constipation (principal); I12.9 Hypertensive chronic kidney disease with stage 1 through stage 4 chronic kidney disease, or unspecified chronic kidney disease; N18.9 Chronic kidney disease, unspecified; I49.5 Sick sinus syndrome; F03.90 Unspecified dementia, unspecified severity, without behavioral disturbance, psychotic disturbance, mood disturbance, and anxiety; E03.9 Hypothyroidism, unspecified; E53.8 Deficiency of other specified B group vitamins; E78.5 Hyperlipidemia, unspecified; Z95.0 Presence of cardiac pacemaker; Z77.22 Contact with and (suspected) exposure to environmental tobacco smoke (acute) (chronic); Z79.82 Long term (current) use of aspirin
CPT/HCPCS: 74018; 99283

== ENCOUNTER 2022-03-25 09:52 | Outpatient (CLI) | payer MEDICARE, BC, SELFPAY ==
[2022-03-25 18:56] LABS: Mean Corpuscular HGB Conc 33.3 g/dl (32-36); Mean Corpuscular Hemoglobin 30.9 pg (26-34); Mean Corpuscular Volume 92.6 fl (80-100); Mean Platelet Volume 11.1 fl (7.4-10.4); Platelet Count Result 191 k/mm3 (150-375); Red Blood Count 4.21 M/mm3 (4.2-5.4); Red Cell Distribution Width 13.2 % (11.5-14.5); White Blood Count 9.7 K/mm3 (4.5-10.0)
[2022-03-25 18:56] LABS: Appearance Urine Cloudy (Clear); Bilirubin Urine Negative (Negative); Blood Urine Trace-intact (Negative); Color Urine Yellow (Yellow); Glucose Urine UA Negative (Negative); Ketones Urine Negative (Negative); Leukocyte Esterase Ur 3+ LEU/UL (NEGATIVE); Nitrate Urine Positive (Negative); Protein Urine 1+ mg/dL (Negative); Specific Grav Ur 1.015 (1.001-1.035); Urobilinogen Urine 0.2 mg/dL (<2.0); pH Urine 7.5 (5.0-9.0)
[2022-03-25 19:03] LABS: Bacteria Urine Trace /hpf; Mucus Urine Rare /lpf; Squamous Epithelial Cell Urine Few /hpf (Few); WBC Clumps Urine Present /HPF; WBC Urine >75 /hpf (0-3)
[2022-03-25 19:05] LABS: Add Urine Microscopic? YES
== END 2022-03-25 09:53 | disposition home or self-care (01) ==
PROVIDERS: PCP Family Medicine; Visit Provider Family Medicine
DX: I10 Essential (primary) hypertension (principal); R41.0 Disorientation, unspecified
CPT/HCPCS: 36415; 81001; 85027

== ENCOUNTER 2022-03-29 18:20 | Inpatient (IN) | payer MEDICARE, BC, SELFPAY ==
--- NOTE | ~2022-03-29 | XR_ITS ---
EXAM: XR abdomen/kub 1V DATE: 03/29/2022 19:13 HISTORY: abdominal pain/constipation . COMPARISON: 03/23/2022. FINDINGS: Clear lung bases. Cholecystectomy clips. Partially visualized left hip arthroplasty hardwa re. Normal bowel gas pattern. No organomegaly. No abnormal abdominal calcification. Lower lumbar dege nerative disc disease. Moderate right hip osteoarthritis. IMPRESSION: No radiographic evidence of obstruction or ileus. Reviewed, dictated and finalized at location K. R MANAGER
--- NOTE | ~2022-03-29 | CT_ITS ---
EXAMINATION: CT brain wo con DATE: 03/29/2022 19:14 INDICATION: altered mental status . TECHNIQUE: Computed tomography (CT) of the head was performed without intravenous contrast. The mA wa s adjusted according to patient size. Iterative reconstruction technique was employed. The dose-lengt h product was 605.33 mGy-cm. COMPARISON: None FINDINGS: No acute intracranial hemorrhage or extra-axial fluid collection. No hydrocephalus, mass, or herniation. No acute ischemic infarct. Unremarkable dural venous sinus attenuation. No acute osseous abnormality. Persistent bilateral mastoid fluid, the remaining aerated spaces are clear. Mild atrophy and chronic white matter change. Atherosclerotic intracranial calcification. Bilateral l ens replacements. IMPRESSION: No acute intracranial process. Reviewed, dictated and finalized at location K. CANVAS INSTALLER
--- NOTE | ~2022-03-29 | CT_ITS ---
EXAMINATION: CT cervical spine wo con DATE: 03/29/2022 19:15 INDICATION: neck pain TECHNIQUE: Computed tomography (CT) of the cervical spine was performed without intravenous contrast. Automated exposure control and iterative reconstruction technique were employed. The dose-length pro duct was 430.48 mGy-cm. COMPARISON: 09/14/2021. FINDINGS: Vertebral Body Alignment: Intact. Craniocervical and atlantoaxial alignment: Moderate degenerative change. Alignment intact. Osseous structures/fracture: No evidence of a lytic or blastic process in the visualized spine. No e vidence of acute fracture. Bilateral mastoid fluid, without evident erosion or fracture. Chronic and stable mild multilevel anterior wedge deformity at C4, C5, and C6. Cervical soft tissues: The paraspinal soft tissues planes are maintained. Degenerative changes: Multilevel degenerative disc disease. Severe right neural foraminal narrowing a t C5-6. No severe central canal narrowing. IMPRESSION: No acute fracture or traumatic malalignment in the cervical spine Reviewed, dictated and finalized at location K. INSPECTOR
--- NOTE | ~2022-03-29 | XR_ITS ---
EXAMINATION: XR chest 1V portable Exam Date/Time: 03/29/2022 19:00 INSPECTOR MULTIFOCAL LENS HISTORY: SOB. POOR HISTORIAN/AMS Comparison: 03/14/2022. RESULT: Lines, tubes, and devices: Left chest pacer with intact leads. Cholecystectomy clips. Lungs and pleura: No focal consolidation, pneumothorax, or effusion. Senescent changes. Cardiomediastinal silhouette: Stable. Other: No acute osseous or upper abdominal finding. IMPRESSION: No acute cardiopulmonary process. Reviewed, dictated and finalized at location K. ECTOR MULTIFOCAL LENS
[2022-03-29 18:22] VITALS: BP 165/49; PULSE 66; RESP 16; TEMP 36.8; O2SAT 98
[2022-03-29 18:43] VITALS: PULSE 66
--- NOTE | 2022-03-29 18:43 | ECG_ITS ---
Measurements Intervals [place] Rate: 65 P: 67 MA: 219 QRS: -71 QRSD: 150 T: 60 QT: 426 QTc: 445 Interpretive Statements PROBABLE SINUS RHYTHM WITH FIRST DEGREE AV BLOCK RIGHT BUNDLE BRANCH BLOCK [120+ ms QRS DURATION, UPRIGHT V1, 40+ ms S IN I/aVL/V4/V5/V6] LEFT ANTERIOR FASCICULAR BLOCK [QRS AXIS <= -45, QR IN I, RS IN II] COMPARED TO ECG 02/08/2022 10:12:48 PROBABLE SINUS RHYTHM PRESENT Electronically Signed On 03-30-2022 15:26:23 HYDROLOGY TECHNICIAN by Echo Coates M.D.
--- NOTE | 2022-03-29 18:59 | ED.AMS ---
HPI - Altered Mental Status General Chief Complaint: Altered Mental Status Stated Complaint: weakness, ams Time Seen by Provider: 03/29/22 18:27 History of Present Illness HPI narrative: 87-year-old female with history of confusion, chronic kidney disease, dementia, UTI, constipation, hypothyroidism, and hypertension presents today with concerns for confusion. Patient [id number] at the bedside. States last known well was yesterday. Patient was checked on multiple times today but was sleeping. Daughter stated yesterday the only concern was neck pain that the patient noted. Upon arrival patient is responsive to painful stimuli. After sternal rub patient would verbally respond to simple questions. When patient asked how she felt. She stated I do not know. Patient unable to follow directions at this time. Related Data Home Medications Medication Instructions Recorded Confirmed aspirin 81 mg tablet,delayed 81 mg PO DAILY 05/21/19 02/07/22 release (Adult Low Dose Aspirin) calcium polycarbophil 625 mg 625 mg PO DAILY 05/21/19 02/07/22 tablet (Fiber-Lax) cholecalciferol (vitamin D3) 50 2,000 unit PO DAILY 05/21/19 02/07/22 mcg (2,000 unit) tablet cyanocobalamin (vitamin B-12) 1,000 mcg PO DAILY 02/07/22 02/07/22 1,000 mcg tablet (Vitamin B-12) inhalational spacing device 03/30/22 03/30/22 ([facility] spacer) lisinopril 30 mg tablet 30 mg PO DAILY 03/30/22 03/30/22 Allergies Allergy/AdvReac Type Severity Reaction Status Date / Time adhesive tape Allergy Severe BLISTERS, Verified 03/29/22 18:44 RED, SKIN BREAKDOWN celecoxib Allergy Unknown Agitated Verified 03/29/22 18:44 diclofenac Allergy Unknown Redness of Verified 03/29/22 18:44 Skin levofloxacin Allergy Unknown Unknown Verified 03/29/22 18:44 mirabegron Allergy Unknown Unknown Verified 03/29/22 18:44 pneumococcal vaccine Allergy Unknown Unknown Verified 03/29/22 18:44 Quinolones Allergy Unknown Unknown Verified 03/29/22 18:44 hydrochlorothiazide Allergy low sodium Verified 03/29/22 18:44 Influenza Virus Vaccines Allergy Unknown Verified 03/29/22 18:44 metoprolol Allergy Unknown Verified 03/29/22 18:44 DICLOFENAC SODIUM Allergy Mild Nausea Uncoded 03/29/22 18:44 Review of Systems Review of Systems: ROS unobtainable: Yes unobtainable due to mental status PMFSH Past Medical History Medical History Benign essential hypertension CKD (chronic kidney disease) Constipation, chronic Dementia Elevated fasting glucose Family history of cancer Frequent falls Hearing difficulty Hyperlipidemia Hyperlipidemia, acquired Hypothyroidism Pacemaker Secondhand smoke exposure Sick sinus syndrome Syncope Vitamin B12 deficiency Surgical History Surgical History History of hip surgery Family History Family History Mother Family history of pancreatic cancer Father Acute myocardial infarction Social History Social History Smoking status: Never smoker Second hand tobacco smoke exposure: No Alcohol intake: never Substance use: never Lack of Transportation: No Lack of Food: Never True Current Housing: I Have Housing Concerned About Future Housing: No Difficulty Paying Gas/Electric Bills: No Difficulty Paying for Meds: No Currently Unemployed: No Education: High School Diploma/GED Difficulty w/ Childcare or Family Care: No Spiritual care concerns: No Exam Narrative: GENERAL: ill-appearing, well-nourished, and in no acute distress. HEAD: Normocephalic, atraumatic. EYES: PERRLA and EOMI. NECK: Supple. No adenopathy or masses. CHEST: Clear to auscultation. No respiratory distress. No wheezes rales or rhonchi HEART: Regular rate and rhythm. No murmur heard. Normal peripheral p
[2022-03-29] MEDS: SODIUM CHLORIDE 0.9% IV 2,000 ML 999 ML IV CONT (20:52)
[2022-03-29 20:56] LABS: Basophils Percent Auto 0.4 % (0.2-1.2); Eosinophils Absolute Auto 0.1 K/mm3 (0-0.3); Eosinophils Percent Auto 1.1 % (0-4.4); Hematocrit 35.1 % (37.0-47.0); Immature Granulocyte Absolute 0.03 K/mm3 (0.00-0.031); Immature Granulocyte Percent A 0.4 % (0-0.5); Lymphocytes Absolute Auto 1.14 K/mm3 (0.9-3.2); Lymphocytes Percent Auto 13.4 % (18.3-44.2); Mean Corpuscular Hemoglobin 32.2 pg (26-34); Mean Corpuscular Volume 86.9 fl (80-100); Mean Platelet Volume 10.5 fl (7.4-10.4); Monocytes Absolute Auto 0.5 K/mm3 (0.1-0.6); Monocytes Percent Auto 6.4 % (2.6-8.5); Neutrophils Absolute Auto 6.7 K/mm3 (1.3-6.7); Neutrophils Percent Auto 78.3 % (45.5-73.1); Platelet Count Result 161 k/mm3 (150-375); Red Blood Count 4.04 M/mm3 (4.2-5.4); Red Cell Distribution Width 12.7 % (11.5-14.5); White Blood Count 8.5 K/mm3 (4.5-10.0)
[2022-03-29 20:57] LABS: Appearance Urine Clear (Clear); Bilirubin Urine Negative (Negative); Blood Urine Negative (Negative); Color Urine Yellow (Yellow); Glucose Urine UA Negative (Negative); Ketones Urine Negative (Negative); Leukocyte Esterase Ur Negative LEU/UL (Negative); Nitrate Urine Negative (Negative); Protein Urine Negative (Negative); Specific Grav Ur 1.015 (1.001-1.035); Urobilinogen Urine 0.2 mg/dL (<2.0); pH Urine 8.5 (5.0-9.0)
[2022-03-29 21:07] LABS: Prothrombin Time 12.6 Seconds (11.1-14.7)
[2022-03-29 21:08] LABS: Partial Thromboplastin Time 33.3 SECONDS (22.3-36.8)
[2022-03-29 21:10] LABS: Alanine Aminotransferase 19 U/L (6-35); Alkaline Phosphatase 78 U/L (38-126); Anion Gap 8 mmol/L (8-16); Aspartate Amino Transferase 35 U/L (14-36); Bilirubin,Total 0.7 mg/dL (0.2-1.3); Blood Urea Nitrogen 15 mg/dL (7-17); Calcium 9.3 mg/dL (8.4-10.2); Carbon Dioxide 25 mmol/L (22-30); Chloride 86 mmol/L (98-107); Estimated CRCL calculation 29 ml/min; Estimated Glomerular Filt Rate 33; Glucose 122 mg/dL (65-110); Potassium 5.1 mmol/L (3.4-5.0); Sodium 119 mmol/L (137-145)
[2022-03-29 21:10] LABS: RBC Urine 0-2 /hpf (0-2); WBC Urine 0-3 /hpf
[2022-03-29 21:12] LABS: Add Urine Microscopic? NO
[2022-03-29 21:36] LABS: Thyroid Stimulating Hormone 0.849 uIU/mL (0.465-4.680)
--- NOTE | 2022-03-29 22:18 | PC.NURSE ---
Per Miroslava Pickard ANIMAL HUSBANDRY MANAGER stop fluids at this time.
[2022-03-29 23:01] VITALS: PULSE 63; RESP 17
[2022-03-29 23:10] LABS: SARS-CoV-2 RNA PCR Negative
[2022-03-29 23:15] VITALS: PULSE 61; RESP 14
[2022-03-29 23:30] VITALS: PULSE 64; RESP 18
[2022-03-29 23:45] VITALS: PULSE 61; RESP 18
[2022-03-30] VITALS (10 sets, daily range): BP systolic 126–142; BP diastolic 47–61; PULSE 60–67; RESP 14–20; TEMP 36.2–37.3; O2SAT 94–96; BMI 33.0; BMI 38.5
[2022-03-30] MEDS: SODIUM CHLORIDE 0.9% IV 1,000 ML 75 ML IV CONT (02:08)
--- NOTE | 2022-03-30 04:14 | PM.IMHP ---
H&P: HPI History of Present Illness Date/Time: 03/30/22 04:14 Chief Complaint: altered mental status Narrative: This is an 87-year-old female with past medical history significant for hypertension, dementia, patient lives at assisted living facility. She was brought to the emergency for evaluation due to altered mental status patient was not leaving her room and had been in the bed most of the day and has not been eating or drinking properly had problems with constipation 2 weeks prior to these history is obtained from grand daughters were at bedside as patient is obtunded unable to give any history. preliminary workup was significant for sodium of 119, Creatinine 1.5, potassium was 5, a chest x-ray was clear, urine was clean a head CT did not show acute intracranial abnormalities. Patient is been admitted for further evaluation management and treatment. Review of Systems Review of Systems: ROS unobtainable: Yes unobtainable due to mental status ( Obtundation lethargy) PMFSH Past Medical History Medical History Benign essential hypertension CKD (chronic kidney disease) Constipation, chronic Dementia Elevated fasting glucose Family history of cancer Frequent falls Hearing difficulty Hyperlipidemia Hyperlipidemia, acquired Hypothyroidism Pacemaker Secondhand smoke exposure Sick sinus syndrome Syncope Vitamin B12 deficiency Surgical History Surgical History History of hip surgery Family History Family History Mother Family history of pancreatic cancer Father Acute myocardial infarction Social History Social History Smoking status: Never smoker Second hand tobacco smoke exposure: No Alcohol intake: never Substance use: never Lack of Transportation: No Lack of Food: Never True Current Housing: I Have Housing Concerned About Future Housing: No Difficulty Paying Gas/Electric Bills: No Difficulty Paying for Meds: No Currently Unemployed: No Education: High School Diploma/GED Difficulty w/ Childcare or Family Care: No Spiritual care concerns: No Meds Home Medications and Allergies Home Medications Medication Instructions Recorded Confirmed Type aspirin 81 mg tablet,delayed 81 mg PO DAILY 05/21/19 02/07/22 History release (Adult Low Dose Aspirin) calcium polycarbophil 625 mg 625 mg PO DAILY 05/21/19 02/07/22 History tablet (Fiber-Lax) cholecalciferol (vitamin D3) 50 2,000 unit PO DAILY 05/21/19 02/07/22 History mcg (2,000 unit) tablet spirometers and accessories #1 ea 09/30/21 02/07/22 Rx atorvastatin 20 mg tablet (Lipitor) 20 mg PO DAILY #90 tabs 10/30/21 03/30/22 Rx levothyroxine 100 mcg tablet 100 mcg PO DAILY #90 tabs 10/30/21 03/30/22 Rx (Synthroid) cyanocobalamin (vitamin B-12) 1,000 mcg PO DAILY 02/07/22 02/07/22 History 1,000 mcg tablet (Vitamin B-12) memantine 5 mg tablet (Namenda) 5 mg PO QAM #75 tabs 02/22/22 02/22/22 Rx azithromycin 250 mg tablet See Rx Instructions PO .COMPLEX #6 03/14/22 Rx tabs memantine 10 mg tablet (Namenda) 10 mg PO BID #180 tabs 03/15/22 Rx polyethylene glycol 3350 17 17 g PO BID 7 days #238 grams 03/24/22 Rx gram/dose oral powder (Miralax) sodium phosphates 19 gram-7 118 ml RECTAL ONCE 1 day #133 mL 03/24/22 Rx gram/118 mL enema (Enema Disposable) amlodipine 10 mg tablet 10 mg PO DAILY #90 tabs 03/25/22 03/30/22 Rx linaclotide 72 mcg capsule 72 mcg PO QAM #30 caps 03/25/22 03/25/22 Rx (Linzess) sulfamethoxazole 800 1 tablet PO Q12H #6 tabs 03/25/22 03/30/22 Rx mg-trimethoprim 160 mg tablet (Bactrim DS) inhalational spacing device 03/30/22 03/30/22 History ([facility] [place] spacer) lisinopril 30 mg tablet 30 mg PO DAILY 03/30/22 03/30/22 History Allergies Al
[2022-03-30 06:43] LABS: Basophils Percent Auto 0.4 % (0.2-1.2); Eosinophils Absolute Auto 0.2 K/mm3 (0-0.3); Hematocrit 32.2 % (37.0-47.0); Hemoglobin 11.4 g/dL (12.0-15.0); Immature Granulocyte Absolute 0.04 K/mm3 (0.00-0.031); Immature Granulocyte Percent A 0.5 % (0-0.5); Lymphocytes Absolute Auto 1.45 K/mm3 (0.9-3.2); Lymphocytes Percent Auto 19.6 % (18.3-44.2); Mean Corpuscular HGB Conc 35.4 g/dl (32-36); Mean Corpuscular Hemoglobin 31.8 pg (26-34); Mean Corpuscular Volume 89.9 fl (80-100); Mean Platelet Volume 10.5 fl (7.4-10.4); Monocytes Absolute Auto 0.7 K/mm3 (0.1-0.6); Monocytes Percent Auto 8.8 % (2.6-8.5); Neutrophils Absolute Auto 5.1 K/mm3 (1.3-6.7); Neutrophils Percent Auto 68.7 % (45.5-73.1); Platelet Count Result 148 k/mm3 (150-375); Red Blood Count 3.58 M/mm3 (4.2-5.4); White Blood Count 7.4 K/mm3 (4.5-10.0)
[2022-03-30 06:52] LABS: Anion Gap 6 mmol/L (8-16); Blood Urea Nitrogen 12 mg/dL (7-17); Calcium 8.5 mg/dL (8.4-10.2); Carbon Dioxide 22 mmol/L (22-30); Chloride 95 mmol/L (98-107); Estimated CRCL calculation 27 ml/min; Estimated Glomerular Filt Rate 36; Glucose 91 mg/dL (65-110); Potassium 4.5 mmol/L (3.4-5.0); Sodium 123 mmol/L (137-145)
--- NOTE | 2022-03-30 09:45 | PM.IMPN ---
Progress Note: A&P Assessment and Plan (1) Acute hyponatremia: Code(s): E87.1 - Hypo-osmolality and hyponatremia Status: Acute Assessment and Plan: Sodium was 119 upon arrival Current sodium is 123 raise sodium slowly 4-6 per 24 hour period Sodium Q6H Fluid running at 75ml/hr Continue to trend labs Nephrology consult thank you for your help Urine labs ordered (2) Acute metabolic encephalopathy: Code(s): G93.41 - Metabolic encephalopathy Status: Acute Assessment and Plan: Present with lethargy and confusion Probably related to the hyponatremia head ct no acute intracranial abnormal Continue to trend mental status Continue dementia medications trend mental status (3) USMAN (acute kidney injury): Code(s): N17.9 - Acute kidney failure, unspecified Status: Acute Assessment and Plan: presented with creatinine 1.50 Baseline appears to be 09-1.20 Current Cr 1.40 Avoid nephrotoxic medications Hold lisinopril for now Probably related to dehydration Could be a component of CKD Nephrology on the case Trend labs FENa score 2.2% intrinsic ATN (4) Hypochloremia: Code(s): E87.8 - Other disorders of electrolyte and fluid balance, not elsewhere classified Status: Acute Assessment and Plan: receiving NS 0.9 (5) CKD (chronic kidney disease): Code(s): N18.9 - Chronic kidney disease, unspecified Status: Acute Assessment and Plan: continue to monitor BUN and creatinine daily intake and output Time Spent With Patient Time with patient: Greater than 35 minutes Subjective Date/time seen: 03/30/22944 Interval history: 03/30/22944 Patient is extremely hard of hearing. She did state that she was a little bit nauseous today. She also stated that she did eat something today as well. She denies any chest pain or shortness of breath. She does look very weak and fatigued. She also stated that she just very tired. Sodium is up to 123 today. 03/30/22? 04:14 ?This is an 87-year-old female with past medical history significant for hypertension, dementia, patient lives at assisted living facility.? She was brought to the emergency for evaluation due to altered mental status patient was not leaving her room and had been in the bed most of the day and has not been eating or drinking properly had problems with constipation 2 weeks prior to these history is obtained from grand daughters were at bedside as patient is obtunded unable to give any history. preliminary workup was significant for sodium of 119, ? Creatinine 1.5, potassium was 5, a chest x-ray was clear, urine was clean a head CT did not show acute intracranial abnormalities.? Patient is been admitted for further evaluation management and treatment. Review of Systems Review of Systems: All systems reviewed & are unremarkable except as noted in HPI and below ROS unobtainable: Yes unobtainable due to mental status ( Obtundation lethargy) Exam Narrative: General: well-nourished, weak and tired-appearing 87-year-old female, laying in bed, comfortable, NARD Neuro: lethargic, alert and oriented x2, speech clear, no focal neuro deficits noted HEENMT: normocephalic, atraumatic, EOMI, sclerae anicteric, moist oral mucosa Respiratory: Clear to auscultation bilaterally without crackles, rhonchi or wheezes, nonlabored breathing Cardio: regular rate, regular rhythm with S1-S2 Abdomen: nondistended, normoactive bowel sounds, soft, nontender to palpation Extremities: no edema, erythema, or tenderness to palpation, DP pulses 2+ bilaterally Skin: no rashes or lesions, warm and dry Psych: depressed mood and affect, judgment and insight poor Objective Data Vital Signs Vital Signs: Vital Signs - 24 hr 03/29/22 18:22 03/29/22 18:43 03/29/22 23:01 Temperature 98.2 F Pulse Rate 66 66 63 Respirator
[2022-03-30 10:02] LABS: Creatinine Urine 22.3 mg/dL; Urea Random Urine 73 MG/DL
[2022-03-30 10:08] LABS: Sodium Urine Random 43 meq/L
--- NOTE | 2022-03-30 10:47 | PM.CNNEP ---
Assessment and Plan Assessment and plan (1) Hyponatremia: Code(s): E87.1 - Hypo-osmolality and hyponatremia Status: Acute Assessment and Plan: the patient has hyponatremia. She has been gradually sicker since the last ER visit about 2 weeks ago. It is hard to know how to put this all together. I suspect that since she has been having GI problems for the last few weeks she has not been eating well but has been drinking fluid and therefore became dehydrated and since the fluid intake was greater than the caloric intake that her sodium went down. This is not acute hyponatremia as we have no sodium values from the last 48hours. I think we need to assume that this is chronic hyponatremia and so we do not want to correct this too quickly. The patient did get some IV fluids because it was assumed that all of this is due to dehydration. This is a reasonably valid assumption. Her sodium did correct a little from 119-123. And indeed her mental status seems to be a little better as well. I await the 9:30 sodium. Other etiologies of hyponatremia include: Medications: Depressants, diuretics, narcotics, PPIs. she is not on any of these. Hormonal: Will check TSH and cortisol cancer: She has no active cancer. She needs to have her routine cancer surveillance done appropriate for her age. Pulmonary: Chest x-ray is okay. FLEET ADMINISTRATIVE ASSISTANT: CT of the brain was unremarkable for acute issues. Will check TSH, cortisol, serum and urine osmolality. Will continue IV fluids for now and watch as the sodium corrects to make sure does not correct too quickly. (2) Acute metabolic encephalopathy: Code(s): G93.41 - Metabolic encephalopathy Status: Acute Assessment and Plan: CT brain is negative. It is assumed that the low sodium is doing this. (3) Acute kidney injury superimposed on chronic kidney disease: Code(s): N17.9 - Acute kidney failure, unspecified; N18.9 - Chronic kidney disease, unspecified Status: Acute Assessment and Plan: Creatinine is a little bit elevated. Think this is from dehydration as well. Will get a renal ultrasound to be sure nothing else is going on. (4) Benign essential hypertension: Code(s): I10 - Essential (primary) hypertension Status: Acute Assessment and Plan: Systolic blood pressure running between 120 and 180. She was recently placed on a higher dose of Norvasc as it was increased [id number] to10mg. She is not taking anything p.o. right now. Will put an order in for IV hydralazine as needed History of Present Illness Reason for Consult Consult date: 03/30/22 Chief Complaint Chief complaint: USMAN,hyponatremia,hyperkalemia,hypochloremia History of Present Illness Narrative: phillip Marina is a very pleasant 87-year-old lady who has hypertension, chronic kidney disease, dementia, recurrent constipation, frequent falls, hyperlipidemia, hypothyroidism, B12 deficiency, and sick sinus syndrome. The patient has been doing pretty well with stable values for her chronic kidney disease. She was in the hospital in January for a fainting spell. Cardiology and Neurology were consulted and found no reason for this. Her kidneys were stable at the time. She was discharged and did fairly well after that until about 2 weeks ago when she developed abdominal discuss comfort and went to the ER and was found to be constipated. She was given cathartics and he she has been moving her bowels since then. Over the last couple of weeks however she has become less involved, staying in her room more often, it is not eating or drinking. Her granddaughter Sofia went to see her yesterday and the patient was obtained ended so they called 911 and had her brought to the ER. She was evaluated in the emergency room and found to have a sodium of 119. She was felt to be dehydrated so given some IV fluids. The repeat sodium about 9hours later was up to 123 and the mt
[2022-03-30 11:12] LABS: Sodium 125 mmol/L (137-145)
--- NOTE | 2022-03-30 11:46 | PC.NURSE ---
Na level [address] Pryor
[2022-03-30] MEDS: SODIUM CHLORIDE 0.45% 1,000 ML 75 ML IV CONT (11:56)
[2022-03-30 12:15] LABS: Thyroid Stimulating Hormone Reflex 0.964 uIU/mL (0.465-4.68)
[2022-03-30 16:34] LABS: Sodium 123 mmol/L (137-145)
[2022-03-30 21:46] LABS: Sodium 122 mmol/L (137-145)
[2022-03-30] MEDS: ACETAMINOPHEN 325 MG TABLET 650 MG PO (22:33)
--- NOTE | 2022-03-30 22:44 | PC.NURSE ---
reported to MD Pryor 2100 sodium 122 trending down from 123, change IV fluids to NS 50 ml/hr
[2022-03-30] MEDS: SODIUM CHLORIDE 0.9% IV 1,000 ML 50 ML IV CONT (23:02)
[2022-03-31 00:33] VITALS: TEMP 37.1
[2022-03-31 04:00] VITALS: BP 133/42; PULSE 59; RESP 14; TEMP 36.6; O2SAT 93
[2022-03-31 08:51] LABS: Basophils Absolute Auto 0.1 K/mm3 (0.0-0.1); Basophils Percent Auto 0.9 % (0.2-1.2); Eosinophils Absolute Auto 0.3 K/mm3 (0-0.3); Eosinophils Percent Auto 3.9 % (0-4.4); Hemoglobin 11.5 g/dL (12.0-15.0); Immature Granulocyte Absolute 0.04 K/mm3 (0.00-0.031); Immature Granulocyte Percent A 0.6 % (0-0.5); Lymphocytes Absolute Auto 1.96 K/mm3 (0.9-3.2); Lymphocytes Percent Auto 28.1 % (18.3-44.2); Mean Corpuscular HGB Conc 34.8 g/dl (32-36); Mean Corpuscular Hemoglobin 31.9 pg (26-34); Mean Corpuscular Volume 91.7 fl (80-100); Mean Platelet Volume 10.4 fl (7.4-10.4); Monocytes Absolute Auto 0.6 K/mm3 (0.1-0.6); Monocytes Percent Auto 9.2 % (2.6-8.5); Neutrophils Percent Auto 57.3 % (45.5-73.1); Platelet Count Result 147 k/mm3 (150-375); Red Cell Distribution Width 13.2 % (11.5-14.5)
[2022-03-31 09:00] LABS: Alanine Aminotransferase 22 U/L (6-35); Albumin Level 3.6 g/dL (3.5-5.1); Alkaline Phosphatase 54 U/L (38-126); Anion Gap 3 mmol/L (8-16); Aspartate Amino Transferase 37 U/L (14-36); Bilirubin,Total 0.6 mg/dL (0.2-1.3); Blood Urea Nitrogen 11 mg/dL (7-17); Calcium 8.2 mg/dL (8.4-10.2); Carbon Dioxide 26 mmol/L (22-30); Chloride 93 mmol/L (98-107); Estimated CRCL calculation 29 ml/min; Estimated Glomerular Filt Rate 39; Glucose 88 mg/dL (65-110); Magnesium 1.8 mg/dL (1.6-2.3); Potassium 5.6 mmol/L (3.4-5.0); Sodium 122 mmol/L (137-145)
--- NOTE | 2022-03-31 10:51 | PM.PNNEP ---
Progress Note: A&P Assessment and Plan (1) Hyponatremia: Code(s): E87.1 - Hypo-osmolality and hyponatremia Status: Acute Assessment and Plan: the patient has hyponatremia. urine electrolytes non pre renal TSH and cortisol are okay. Most likely this is due to dehydration and water drinking. Other etiologies of hyponatremia include: Medications: Depressants, diuretics, narcotics, PPIs. she is not on any of these. Hormonal: Both okay cancer: She has no active cancer. She needs to have her routine cancer surveillance done appropriate for her age. Pulmonary: Chest x-ray is okay. ORDER BOOKER: CT of the brain was unremarkable for acute issues. await serum and urine osmolality. she was getting normal saline and the sodium corrected a little too fast. Then she got D5W and it regressed. Then half-normal saline and it has looked a little bit so now she is on normal saline. Her sodium is stable at 122. In the meantime her creatinine is better. Will continue normal saline for now. Will start a fluid restriction since she is more awake now. Once the creatinine is down we can switch to salt tablets. (2) Acute metabolic encephalopathy: Code(s): G93.41 - Metabolic encephalopathy Status: Acute Assessment and Plan: CT brain is negative. Improved (3) Acute kidney injury superimposed on chronic kidney disease: Code(s): N17.9 - Acute kidney failure, unspecified; N18.9 - Chronic kidney disease, unspecified Status: Acute Assessment and Plan: Creatinine is a little bit better with the fluids. (4) Benign essential hypertension: Code(s): I10 - Essential (primary) hypertension Status: Acute Assessment and Plan: Systolic blood pressure has settled down in the 130s. Subjective Date/time seen: 03/31/22 10:51 Interval history: More awake today. Denies chest pain or shortness of breath Review of Systems Cardiovascular: Cardiovascular: Reports no additional cardiovascular complaints Respiratory: Respiratory: Reports no additional respiratory complaints Gastrointestinal: Gastrointestinal: Reports no additional gastrointestinal complaints Genitourinary: Genitourinary: Reports no additional female genitourinary complaints Exam Narrative: WDWN in NAD skin no rash head ncat lungs clear cor reg no rub abd BS+ nontender and soft ext no edema. Objective Data Vital Signs Vital Signs: Vital Signs - 24 hr 03/30/22 11:52 03/30/22 16:00 03/30/22 19:50 Temperature 97.1 F L 97.3 F L Pulse Rate 66 67 Respiratory Rate 18 20 Blood Pressure 130/47 L 137/47 L Pulse Oximetry 94 96 96 Oxygen Delivery Room Air 03/30/22 20:00 03/30/22 22:00 03/30/22 22:33 Temperature 99.1 F 99.1 F 99.1 F Pulse Rate 66 66 Respiratory Rate 14 14 Blood Pressure 132/54 L 132/54 L Pulse Oximetry 95 95 Oxygen Delivery 03/31/22 00:33 03/31/22 04:00 Temperature 98.7 F 97.9 F Pulse Rate 59 L Respiratory Rate 14 Blood Pressure 133/42 L Pulse Oximetry 93 Oxygen Delivery Intake/Output Intake/Output: Intake & Output 03/28/22 03/29/22 03/30/22 03/31/22 23:59 23:59 23:59 23:59 Intake Total 1200 1436 980 Output Total 1300 1750 Balance 1200 136 -770 Meds/Results Medications: Active Medications Generic Name Dose Route Start Last Admin Trade Name Freq PRN Reason Stop Dose Admin Acetaminophen 650 mg 03/30/22 22:26 03/30/22 22:33 Acetaminophen 325 Mg Tablet PO 650 mg Q6H PRN Administration Mild Pain (1-3) or Fever Hydralazine HCl 10 mg 03/30/22 11:04 Hydralazine Hcl 20 Mg/Ml Vial IV PUSH Q8H PRN Blood Pressure - High Sodium Chloride 1,000 mls @ 50 mls/hr 03/30/22 22:50 03/30/22 23:02 Normal Saline Iv IV CONT 50 mls/hr .Q20H MILIND Administration Radiology Results: ITS Impressions Head CT 03/29/22 19:21 IMPRESSION: No acute intracrania
[2022-03-31 12:00] VITALS: BP 144/50; PULSE 59; RESP 14; TEMP 36.6; O2SAT 100
--- NOTE | 2022-03-31 12:55 | PCPTNOTE ---
Spoke with hospitalist about discharging Bedrest orders to proceed with PT. Hospitalist OK with removing bedrest orders. Will make RN aware.
--- NOTE | 2022-03-31 13:41 | PM.IMPN ---
Progress Note: A&P Assessment and Plan (1) Acute hyponatremia: Code(s): E87.1 - Hypo-osmolality and hyponatremia Status: Acute Assessment and Plan: Sodium was 119 upon arrival suspect acute on chronic issue secondary to dehydration and excessive fluid intake sodium remaining stable at 122 today appreciate nephrology management continue with IV fluids normal saline at 50 mL/hour urine electrolytes pending continue to monitor sodium q.6h to ensure improvement at appropriate rate (2) Acute metabolic encephalopathy: Code(s): G93.41 - Metabolic encephalopathy Status: Resolved Assessment and Plan: Presented with lethargy and confusion likely secondary to hyponatremia head ct with no acute intracranial abnormalities patient is A&O x4 today (3) USMAN (acute kidney injury): Code(s): N17.9 - Acute kidney failure, unspecified Status: Acute Assessment and Plan: acute on chronic. presented with creatinine 1.50 Baseline appears to be 09-1.20 creatinine is 1.3 today lisinopril on hold monitor BMP (4) Hypochloremia: Code(s): E87.8 - Other disorders of electrolyte and fluid balance, not elsewhere classified Status: Acute Assessment and Plan: improving chloride 86 on presentation, improved to 93 today continue with IV fluids (5) Hyperkalemia: Code(s): E87.5 - Hyperkalemia Status: Acute Assessment and Plan: potassium is 5.6 this morning administer 1 time dose of Lokelma continue IV fluids appreciate nephrology recommendations recheck potassium again this evening to ensure improvement Subjective Date/time seen: 03/31/22 13:41 Interval history: Date of service: 03/31/2022 Israel Piña is an 80 female history hypertension, CKD, dementia, frequent falls, hyperlipidemia, hypothyroidism, sick sinus syndrome s/p pacemaker, and several other medical problems who is seen in follow-up for hyponatremia. Patient states that she is feeling better today, though admits to feeling confused still. She also complains of some soreness in her neck. She denies headache, dizziness, lightheadedness. No nausea, vomiting, abdominal pain. Denies any urinary symptoms. Appetite is good. Denies dysphagia. Review of Systems Review of Systems: All systems reviewed & are unremarkable except as noted in HPI and below ROS unobtainable: Yes unobtainable due to mental status ( Obtundation lethargy) Exam Narrative: General: well-nourished, well-appearing 87-year-old female, sitting up in bed, comfortable, NARD Neuro: awake, alert and oriented x4, speech clear, no focal neuro deficits noted HEENMT: normocephalic, atraumatic, EOMI, sclerae anicteric Respiratory: clear to auscultation bilaterally, nonlabored breathing Cardio: regular rate, regular rhythm with S1-S2 Abdomen: nondistended, normoactive bowel sounds, soft, nontender to palpation Extremities: no edema, erythema, or tenderness to palpation Skin: no rashes or lesions, warm and dry Psych: appropriate mood and affect, judgment and insight fair Objective Data Vital Signs Vital Signs: Vital Signs - 24 hr 03/30/22 16:00 03/30/22 19:50 03/30/22 20:00 Temperature 97.3 F L 99.1 F Pulse Rate 67 66 Respiratory Rate 20 14 Blood Pressure 137/47 L 132/54 L Pulse Oximetry 96 96 95 Oxygen Delivery Room Air 03/30/22 22:00 03/30/22 22:33 03/31/22 00:33 Temperature 99.1 F 99.1 F 98.7 F Pulse Rate 66 Respiratory Rate 14 Blood Pressure 132/54 L Pulse Oximetry 95 Oxygen Delivery 03/31/22 04:00 03/31/22 10:00 03/31/22 12:00 Temperature 97.9 F 97.9 F Pulse Rate 59 L 59 L Respiratory Rate 14 14 Blood Pressure 133/42 L 144/50 H Pulse Oximetry 93 100 Oxygen Delivery Room Air Intake/Output Intake/Output: Intake & Output 03/28/22 03/29/22 03/30/22 03/31/22 23:59 23:59 23:59 23:59 Intake Total 1200 1436 1780 O
[2022-03-31 16:00] VITALS: BP 150/67; PULSE 62; RESP 14; TEMP 36.6; O2SAT 96
[2022-03-31 17:21] LABS: Albumin Level 3.7 g/dL (3.5-5.1); Anion Gap 7 mmol/L (8-16); Blood Urea Nitrogen 12 mg/dL (7-17); Calcium 8.1 mg/dL (8.4-10.2); Carbon Dioxide 24 mmol/L (22-30); Chloride 90 mmol/L (98-107); Estimated CRCL calculation 34 ml/min; Estimated Glomerular Filt Rate 47; Glucose 101 mg/dL (65-110); Phosphorus 2.9 mg/dL (2.5-4.5); Potassium 4.6 mmol/L (3.4-5.0); Sodium 121 mmol/L (137-145)
[2022-03-31] MEDS: SODIUM CHLORIDE 0.9% IV 1,000 ML 50 ML IV CONT (17:39)
[2022-03-31] MEDS: SODIUM ZIRCONIUM CYCLOSILICATE 10 GM POWD.PACK PO (17:39)
[2022-03-31] MEDS: FUROSEMIDE 20 MG TABLET PO (19:24)
[2022-03-31] MEDS: ACETAMINOPHEN 325 MG TABLET 650 MG PO (19:24)
[2022-03-31] MEDS: SODIUM CHLORIDE 1 GM TABLET PO (19:24)
[2022-03-31 19:34] VITALS: BP 149/65; PULSE 62; RESP 20; TEMP 36.5; O2SAT 98
[2022-03-31 20:00] VITALS: PULSE 62; RESP 20; O2SAT 98
[2022-03-31 22:48] LABS: Potassium 4.9 mmol/L (3.4-5.0); Sodium 121 mmol/L (137-145)
[2022-04-01] VITALS: BP 142/54; PULSE 66; RESP 20; TEMP 36.3; O2SAT 97
[2022-04-01 05:50] VITALS: BP 120/72; PULSE 58; RESP 20; TEMP 36.2; O2SAT 99
[2022-04-01 07:06] LABS: Hematocrit 35.6 % (37.0-47.0); Hemoglobin 12.5 g/dL (12.0-15.0); Mean Corpuscular HGB Conc 35.1 g/dl (32-36); Mean Corpuscular Hemoglobin 31.8 pg (26-34); Mean Corpuscular Volume 90.6 fl (80-100); Mean Platelet Volume 10.1 fl (7.4-10.4); Platelet Count Result 162 k/mm3 (150-375); Red Blood Count 3.93 M/mm3 (4.2-5.4); Red Cell Distribution Width 12.9 % (11.5-14.5); White Blood Count 7.3 K/mm3 (4.5-10.0)
[2022-04-01] MEDS: FUROSEMIDE 20 MG TABLET PO ×2 (08:59→16:30)
[2022-04-01] MEDS: SODIUM CHLORIDE 1 GM TABLET PO ×2 (08:59→16:30)
[2022-04-01 09:38] LABS: Albumin Level 4.2 g/dL (3.5-5.1); Anion Gap 6 mmol/L (8-16); Blood Urea Nitrogen 12 mg/dL (7-17); Calcium 9.1 mg/dL (8.4-10.2); Carbon Dioxide 27 mmol/L (22-30); Chloride 93 mmol/L (98-107); Estimated CRCL calculation 32 ml/min; Estimated Glomerular Filt Rate 42; Glucose 92 mg/dL (65-110); Phosphorus 3.4 mg/dL (2.5-4.5); Potassium 4.3 mmol/L (3.4-5.0); Sodium 126 mmol/L (137-145)
--- NOTE | 2022-04-01 13:30 | PM.IMPN ---
Progress Note: A&P Assessment and Plan (1) Acute hyponatremia: Code(s): E87.1 - Hypo-osmolality and hyponatremia Status: Acute Assessment and Plan: Sodium was 119 upon arrival suspect acute on chronic issue secondary to dehydration and excessive fluid intake sodium 126 today appreciate nephrology management continue with IV fluids normal saline at 50 mL/hour 1000 cc fluid restriction diet sodium chloride tabl 1 g BID urine sodium 43, urine urea 73, osmolality pending continue to monitor sodium q.6h to ensure improvement at appropriate rate (2) Acute metabolic encephalopathy: Code(s): G93.41 - Metabolic encephalopathy Status: Resolved Assessment and Plan: Presented with lethargy and confusion likely secondary to hyponatremia head ct with no acute intracranial abnormalities patient is A&O x4 today family notes some forgetfulness which is likely due to advanced age (3) USMAN (acute kidney injury): Code(s): N17.9 - Acute kidney failure, unspecified Status: Acute Assessment and Plan: acute on chronic. presented with creatinine 1.50 Baseline appears to be 09-1.20 creatinine is 1.2 today lisinopril on hold monitor BMP (4) Hypochloremia: Code(s): E87.8 - Other disorders of electrolyte and fluid balance, not elsewhere classified Status: Acute Assessment and Plan: Improved. Chloride 86 on presentation, improved to 93 today continue with IV fluids (5) Hyperkalemia: Code(s): E87.5 - Hyperkalemia Status: Acute Assessment and Plan: Resolved. Potassium 4.3 today received one time dose of Lokelma monitor potassium levels Subjective Date/time seen: 04/01/22 13:30 Interval history: Date of service: 04/01/2022 Israel Piña is an 80 female history hypertension, CKD, dementia, frequent falls, hyperlipidemia, hypothyroidism, sick sinus syndrome s/p pacemaker, and several other medical problems who is seen in follow-up for hyponatremia. She is feeling improved today. She feels more like herself in admits that her confusion has improved. She has been tolerating her diet. She denies shortness of breath or chest pain. No nausea, vomiting, or abdominal pain. Denies urinary symptoms. Reports she has not had a bowel movement in a couple of days. Her granddaughter is present at the bedside. Granddaughter notes that she had a bowel movement yesterday and is concerned that she is becoming forgetful. Review of Systems Review of Systems: All systems reviewed & are unremarkable except as noted in HPI and below Exam Narrative: General: well-nourished, well-appearing 87-year-old female, sitting up in bed, comfortable, NARD Neuro: awake, alert and oriented x4, speech clear, no focal neuro deficits noted HEENMT: normocephalic, atraumatic, EOMI, sclerae anicteric Respiratory: clear to auscultation bilaterally, nonlabored breathing Cardio: regular rate, regular rhythm with S1-S2 Abdomen: nondistended, normoactive bowel sounds, soft, nontender to palpation Extremities: no edema, erythema, or tenderness to palpation Skin: no rashes or lesions, warm and dry Psych: appropriate mood and affect, judgment and insight fair Objective Data Vital Signs Vital Signs: Vital Signs - 24 hr 03/31/22 16:00 03/31/22 19:34 03/31/22 20:00 Temperature 97.8 F 97.7 F Pulse Rate 62 62 62 Respiratory Rate 14 20 20 Blood Pressure 150/67 H 149/65 H Pulse Oximetry 96 98 98 Oxygen Delivery Room Air 04/01/22 00:00 04/01/22 05:50 04/01/22 08:00 Temperature 97.4 F L 97.2 F L Pulse Rate 66 58 L Respiratory Rate 20 20 Blood Pressure 142/54 H 120/72 Pulse Oximetry 97 99 Oxygen Delivery Room Air Intake/Output Intake/Output: Intake & Output 03/29/22 03/30/22 03/31/22 04/01/22 23:59 23:59 23:59 23:59 Intake Total 1200 1436 2980 640 Output Total 1300 3150 Balance 1200 136 -170 640
[2022-04-01 14:00] VITALS: BP 118/86; PULSE 64; RESP 16; TEMP 36.4; O2SAT 98
[2022-04-01 14:59] LABS: Sodium 130 mmol/L (137-145)
[2022-04-01] MEDS: ACETAMINOPHEN 325 MG TABLET 650 MG PO ×2 (15:09→22:00)
[2022-04-01] MEDS: SODIUM CHLORIDE 0.9% IV 1,000 ML 50 ML IV CONT (16:34)
--- NOTE | 2022-04-01 17:29 | PM.PNNEP ---
Progress Note: A&P Assessment and Plan (1) Hyponatremia: Code(s): E87.1 - Hypo-osmolality and hyponatremia Status: Acute Assessment and Plan: the patient has hyponatremia. urine electrolytes non pre renal TSH and cortisol are okay. Most likely this is due to dehydration and water drinking. Other etiologies of hyponatremia include: Medications: Depressants, diuretics, narcotics, PPIs. she is not on any of these. Hormonal: Both okay cancer: She has no active cancer. She needs to have her routine cancer surveillance done appropriate for her age. Pulmonary: Chest x-ray is okay. 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 await serum and urine osmolality. now on fluid restriction plus Lasix plus salt tablets. Her sodium level has been correcting slowly. Today it was 126 this morning and 130 this afternoon. In the meantime her creatinine is better at 1.2. Off IV fluids and eating well. (2) Acute metabolic encephalopathy: Code(s): G93.41 - Metabolic encephalopathy Status: Resolved Assessment and Plan: CT brain is negative. Improved (3) Acute kidney injury superimposed on chronic kidney disease: Code(s): N17.9 - Acute kidney failure, unspecified; N18.9 - Chronic kidney disease, unspecified Status: Acute Assessment and Plan: Creatinine Continues to improve (4) Benign essential hypertension: Code(s): I10 - Essential (primary) hypertension Status: Acute Assessment and Plan: Systolic blood pressure has settled down with systolic 120 to 150 Subjective Date/time seen: 04/01/22 17:29 Interval history: 03/31 More awake today. Denies chest pain or shortness of breath 04/01 patient feels better today. She is much more interactive. She is oriented and alert. Sofia is in the room. No shortness of breath or chest Exam Narrative: WDWN in NAD skin no rash head ncat lungs clear bilaterally cor reg no rub abd BS+ nontender and soft ext no edema. Objective Data Vital Signs Vital Signs: Vital Signs - 24 hr 03/31/22 19:34 03/31/22 20:00 04/01/22 00:00 Temperature 97.7 F 97.4 F L Pulse Rate 62 62 66 Respiratory Rate 20 20 20 Blood Pressure 149/65 H 142/54 H Pulse Oximetry 98 98 97 Oxygen Delivery Room Air 04/01/22 05:50 04/01/22 08:00 04/01/22 14:00 Temperature 97.2 F L 97.5 F L Pulse Rate 58 L 64 Respiratory Rate 20 16 Blood Pressure 120/72 118/86 Pulse Oximetry 99 98 Oxygen Delivery Room Air Intake/Output Intake/Output: Intake & Output 03/29/22 03/30/22 03/31/22 04/01/22 23:59 23:59 23:59 23:59 Intake Total 1200 1436 2980 1640 Output Total 1300 3150 Balance 1200 136 -170 1640 Meds/Results Medications: Active Medications Generic Name Dose Route Start Last Admin Trade Name Freq PRN Reason Stop Dose Admin Acetaminophen 650 mg 03/30/22 22:26 04/01/22 15:09 Acetaminophen 325 Mg Tablet PO 650 mg Q6H PRN Administration Mild Pain (1-3) or Fever Furosemide 20 mg 03/31/22 18:15 04/01/22 16:30 Furosemide 20 Mg Tablet PO 20 mg BID MILIND Administration Hydralazine HCl 10 mg 03/30/22 11:04 Hydralazine Hcl 20 Mg/Ml Vial IV PUSH Q8H PRN Blood Pressure - High Sodium Chloride 1,000 mls @ 50 mls/hr 03/30/22 22:50 04/01/22 16:34 Normal Saline Iv IV CONT 50 mls/hr .Q20H MLIIND Administration Sodium Chloride 1 gm 03/31/22 18:15 04/01/22 16:30 Sodium Chloride 1 Gm Tablet PO 1 gm BID MILIND Administration Radiology Results: ITS Impressions Head CT 03/29/22 19:21 IMPRESSION: No acute intracranial process. Cervical Spine CT 03/29/22 19:24 IMPRESSION: No acute fracture or traumatic malalignment in the cervical spine Chest X-Ray 03/29/22 19:30 IMPRESSION: No acute cardiopulmonary process. Abdomen X-Ray 03/29/22 19:34 IMPRESSION: No r
[2022-04-01 19:31] VITALS: O2SAT 98
[2022-04-01 20:10] LABS: Osmolality, Urine 170 mOsm/kg (50-1200)
[2022-04-01 21:32] VITALS: BP 144/52; PULSE 65; RESP 14; TEMP 36.3; O2SAT 95
[2022-04-02 06:00] VITALS: BP 167/56; PULSE 77; RESP 14; TEMP 36.1; O2SAT 94
[2022-04-02 07:17] LABS: Hematocrit 36.1 % (37.0-47.0); Hemoglobin 12.5 g/dL (12.0-15.0); Mean Corpuscular HGB Conc 34.6 g/dl (32-36); Mean Corpuscular Hemoglobin 32.2 pg (26-34); Mean Platelet Volume 10.2 fl (7.4-10.4); Platelet Count Result 151 k/mm3 (150-375); Red Blood Count 3.88 M/mm3 (4.2-5.4); Red Cell Distribution Width 13.2 % (11.5-14.5); White Blood Count 8.4 K/mm3 (4.5-10.0)
[2022-04-02 07:30] LABS: Albumin Level 3.9 g/dL (3.5-5.1); Anion Gap 6 mmol/L (8-16); Blood Urea Nitrogen 16 mg/dL (7-17); Calcium 8.7 mg/dL (8.4-10.2); Carbon Dioxide 27 mmol/L (22-30); Chloride 96 mmol/L (98-107); Estimated CRCL calculation 34 ml/min; Estimated Glomerular Filt Rate 47; Glucose 100 mg/dL (65-110); Phosphorus 3.3 mg/dL (2.5-4.5); Potassium 3.9 mmol/L (3.4-5.0); Sodium 129 mmol/L (137-145)
[2022-04-02] MEDS: FUROSEMIDE 20 MG TABLET PO ×2 (09:05→17:18)
[2022-04-02] MEDS: SODIUM CHLORIDE 1 GM TABLET PO ×2 (09:05→17:18)
[2022-04-02] MEDS: ACETAMINOPHEN 325 MG TABLET 650 MG PO (11:47)
--- NOTE | 2022-04-02 13:30 | PM.IMPN ---
Progress Note: A&P Assessment and Plan (1) Acute hyponatremia: Code(s): E87.1 - Hypo-osmolality and hyponatremia Status: Acute Assessment and Plan: Sodium was 119 upon arrival suspect acute on chronic issue secondary to dehydration and excessive fluid intake sodium 129 today appreciate nephrology management continue with IV fluids normal saline at 50 mL/hour 1000 cc fluid restriction diet sodium chloride tab 1 g BID urine sodium 43, urine urea 73, osmolality pending continue to monitor sodium closely. Hopeful discharge soon if continued improvement (2) Acute metabolic encephalopathy: Code(s): G93.41 - Metabolic encephalopathy Status: Resolved Assessment and Plan: Presented with lethargy and confusion likely secondary to hyponatremia head ct with no acute intracranial abnormalities patient is A&O x4 today (3) USMAN (acute kidney injury): Code(s): N17.9 - Acute kidney failure, unspecified Status: Acute Assessment and Plan: acute on chronic. presented with creatinine 1.50 Baseline appears to be 09-1.20 creatinine is 1.1 today lisinopril on hold monitor BMP (4) Hypochloremia: Code(s): E87.8 - Other disorders of electrolyte and fluid balance, not elsewhere classified Status: Acute Assessment and Plan: Improved. Chloride 86 on presentation, improved to 96 today continue with IV fluids (5) Hyperkalemia: Code(s): E87.5 - Hyperkalemia Status: Acute Assessment and Plan: Resolved. Potassium 3.9 today monitor potassium levels (6) Hypothyroidism: Code(s): E03.9 - Hypothyroidism, unspecified Status: Chronic Assessment and Plan: Continue levothyroxine (7) Dementia: Code(s): F03.90 - Unspecified dementia, unspecified severity, without behavioral disturbance, psychotic disturbance, mood disturbance, and anxiety Status: Chronic Assessment and Plan: Continue memantine Plan Planning for SNF following discharge. Hopeful discharge in next 1-2 days if continued improvement. Subjective Date/time seen: 04/02/22 13:30 Interval history: Date of service: 04/01/2022 Israel Piña is an 80 female history hypertension, CKD, dementia, frequent falls, hyperlipidemia, hypothyroidism, sick sinus syndrome s/p pacemaker, and several other medical problems who is seen in follow-up for hyponatremia. She said she was upset this morning but did not wish to sure details of what was bothering her. Provided reassurance and patient is aware that if she would like to talk later, I will be around to provide support. She is feeling better now and has no concerns. She is eating well. She has been working on word search puzzles. She denies abdominal pain, chest pain, shortness of breath, cough, dizziness, lightheadedness. She has been able to get up and ambulate today. She does have some neck soreness. She does not want to try an ice pack or heating pad. Her granddaughter is present at the bedside today Review of Systems Review of Systems: All systems reviewed & are unremarkable except as noted in HPI and below Exam Narrative: General: well-nourished, well-appearing 87-year-old female, sitting up in bed, comfortable, NARD Neuro: awake, alert and oriented x4, speech clear, no focal neuro deficits noted HEENMT: normocephalic, atraumatic, EOMI, sclerae anicteric Respiratory: clear to auscultation bilaterally, nonlabored breathing Cardio: regular rate, regular rhythm with S1-S2 Abdomen: nondistended, normoactive bowel sounds, soft, nontender to palpation Extremities: no edema, erythema, or tenderness to palpation Skin: no rashes or lesions, warm and dry Psych: appropriate mood and affect, judgment and insight fair Objective Data Vital Signs Vital Signs: Vital Signs - 24 hr 04/01/22 14:00 04/01/22 19:31 04/01/22 21:32 Temperature 97.5 F L 97
[2022-04-02 14:00] VITALS: BP 141/55; PULSE 66; RESP 18; TEMP 36.9; O2SAT 96
[2022-04-02] MEDS: SODIUM CHLORIDE 0.9% IV 1,000 ML 50 ML IV CONT (14:42)
--- NOTE | 2022-04-02 16:49 | PM.PNNEP ---
Progress Note: A&P Assessment and Plan (1) Hyponatremia: Code(s): E87.1 - Hypo-osmolality and hyponatremia Status: Acute Assessment and Plan: the patient has hyponatremia. urine electrolytes non pre renal TSH and cortisol are okay. Most likely this is due to dehydration and water drinking. Other etiologies of hyponatremia include: Medications: Depressants, diuretics, narcotics, PPIs. she is not on any of these. Hormonal: Both okay cancer: She has no active cancer. She needs to have her routine cancer surveillance done appropriate for her age. Pulmonary: Chest x-ray is okay. 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 serum osmolality equals calculated. Urine osmolality is not maximally suppressed but is fairly low at 170. now on fluid restriction plus Lasix plus salt tablets. Her sodium level has been correcting slowly. It is 129 today. She is getting normal saline IV as well for her dehydration. Will discontinue this since she is eating. In the meantime her creatinine is better at 1.1. Off IV fluids and eating well. (2) Acute metabolic encephalopathy: Code(s): G93.41 - Metabolic encephalopathy Status: Resolved Assessment and Plan: CT brain is negative. Improved (3) Acute kidney injury superimposed on chronic kidney disease: Code(s): N17.9 - Acute kidney failure, unspecified; N18.9 - Chronic kidney disease, unspecified Status: Acute Assessment and Plan: Creatinine continues to improve It is 1.1 today (4) Benign essential hypertension: Code(s): I10 - Essential (primary) hypertension Status: Acute Assessment and Plan: Systolic blood pressure has settled down with systolic 120 to 150 Subjective Date/time seen: 04/02/22 16:49 Interval history: 03/31 More awake today. Denies chest pain or shortness of breath 04/01 patient feels better today. She is much more interactive. She is oriented and alert. Sofia is in the room. No shortness of breath or chest 04/02 Patient feels better today. Her son and [id number]-hog from [place] are visiting. She is eager to go to rehab. Exam Narrative: WDWN in NAD skin no rash or subcu nodules head ncat lungs clear bilaterally cor reg no rub or gallop abd BS+ nontender and soft ext no edema. Objective Data Vital Signs Vital Signs: Vital Signs - 24 hr 04/01/22 19:31 04/01/22 21:32 04/02/22 06:00 Temperature 97.3 F L 96.9 F L Pulse Rate 65 77 Respiratory Rate 14 14 Blood Pressure 144/52 H 167/56 H Pulse Oximetry 98 95 94 Oxygen Delivery Room Air 04/02/22 09:00 04/02/22 13:58 04/02/22 14:00 Temperature 98.4 F Pulse Rate 66 Respiratory Rate 18 Blood Pressure 141/55 H Pulse Oximetry 96 Oxygen Delivery Room Air Room Air Intake/Output Intake/Output: Intake & Output 03/30/22 03/31/22 04/01/22 04/02/22 23:59 23:59 23:59 23:59 Intake Total 1436 2980 1880 1980 Output Total 1300 3150 1600 Balance 136 -170 1880 380 Meds/Results Medications: Active Medications Generic Name Dose Route Start Last Admin Trade Name Freq PRN Reason Stop Dose Admin Acetaminophen 650 mg 03/30/22 22:26 04/02/22 11:47 Acetaminophen 325 Mg Tablet PO 650 mg Q6H PRN Administration Mild Pain (1-3) or Fever Aspirin 81 mg 04/03/22 09:00 Aspirin 81 Mg Enteric Tablet PO DAILY MILIND Atorvastatin Calcium 20 mg 04/03/22 09:00 Atorvastatin 20 Mg Tablet PO DAILY MILIND Cyanocobalamin 1,000 mcg 04/03/22 09:00 Cyanocobalamin 1,000 Mcg Tablet PO DAILY MILIND Furosemide 20 mg 03/31/22 18:15 04/02/22 09:05 Furosemide 20 Mg Tablet PO 20 mg BID MILIND Administration Hydralazine HCl 10 mg 03/30/22 11:04 Hydralazine Hcl 20 Mg/Ml Vial IV PUSH Q8H PRN Blood Pressure - High Sodium Chloride 1,000 mls @ 50 mls/hr 03/30/22 22:50 04/02
[2022-04-02] MEDS: MEMANTINE 10 MG TABLET PO (17:18)
[2022-04-02 21:36] VITALS: BP 152/60; PULSE 68; RESP 18; TEMP 36.9; O2SAT 95
[2022-04-03] MEDS: LEVOTHYROXINE SODIUM 100 MCG TABLET PO (05:32)
[2022-04-03 05:49] VITALS: BP 155/60; PULSE 66; RESP 20; TEMP 36.1; O2SAT 97
[2022-04-03 07:49] LABS: Hematocrit 33.2 % (37.0-47.0); Hemoglobin 11.6 g/dL (12.0-15.0); Mean Corpuscular HGB Conc 34.9 g/dl (32-36); Mean Corpuscular Volume 91.7 fl (80-100); Mean Platelet Volume 10.2 fl (7.4-10.4); Platelet Count Result 159 k/mm3 (150-375); Red Blood Count 3.62 M/mm3 (4.2-5.4); Red Cell Distribution Width 13.3 % (11.5-14.5); White Blood Count 7.9 K/mm3 (4.5-10.0)
[2022-04-03 08:11] LABS: Anion Gap 3 mmol/L (8-16); Blood Urea Nitrogen 16 mg/dL (7-17); Calcium 8.5 mg/dL (8.4-10.2); Carbon Dioxide 29 mmol/L (22-30); Chloride 98 mmol/L (98-107); Estimated CRCL calculation 38 ml/min; Estimated Glomerular Filt Rate 52; Glucose 106 mg/dL (65-110); Potassium 3.9 mmol/L (3.4-5.0); Sodium 130 mmol/L (137-145)
[2022-04-03] MEDS: ASPIRIN 81 MG ENTERIC TABLET PO (08:49)
[2022-04-03] MEDS: MEMANTINE 10 MG TABLET PO (08:49)
[2022-04-03] MEDS: ATORVASTATIN 20 MG TABLET PO (08:49)
[2022-04-03] MEDS: FUROSEMIDE 20 MG TABLET PO (08:49)
[2022-04-03] MEDS: CYANOCOBALAMIN 1,000 MCG TABLET 1000 MCG PO (08:50)
[2022-04-03] MEDS: CHOLECALCIFEROL 1,000 UNITS TABLET 2000 UNITS PO (08:50)
[2022-04-03] MEDS: SODIUM CHLORIDE 1 GM TABLET PO (08:50)
--- NOTE | 2022-04-03 11:15 | PM.PNNEP ---
Progress Note: A&P Assessment and Plan (1) Hyponatremia: Code(s): E87.1 - Hypo-osmolality and hyponatremia Status: Acute Assessment and Plan: the patient has hyponatremia. urine electrolytes non pre renal TSH and cortisol are okay. Most likely this is due to dehydration and water drinking. Other etiologies of hyponatremia include: Medications: Depressants, diuretics, narcotics, PPIs. she is not on any of these. Hormonal: Both okay cancer: She has no active cancer. She needs to have her routine cancer surveillance done appropriate for her age. Pulmonary: Chest x-ray is okay. 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 serum osmolality equals calculated. Urine osmolality is not maximally suppressed but is fairly low at 170. now on fluid restriction plus Lasix plus salt tablets. Her sodium level has been correcting slowly. It is 130 today she is being discharged. She can go home on fluid restriction. She does not need Lasix and salt tablets any more. (2) Acute metabolic encephalopathy: Code(s): G93.41 - Metabolic encephalopathy Status: Resolved Assessment and Plan: CT brain is negative. Improved (3) Acute kidney injury superimposed on chronic kidney disease: Code(s): N17.9 - Acute kidney failure, unspecified; N18.9 - Chronic kidney disease, unspecified Status: Acute Assessment and Plan: Creatinine continues to improve It is 1.0 today (4) Benign essential hypertension: Code(s): I10 - Essential (primary) hypertension Status: Acute Assessment and Plan: Systolic blood pressure has settled down with systolic 110s to 150s Subjective Date/time seen: 04/03/22 11:15 Interval history: 03/31 More awake today. Denies chest pain or shortness of breath 04/01 patient feels better today. She is much more interactive. She is oriented and alert. Sofia is in the room. No shortness of breath or chest 04/02 Patient feels better today. Her son and [id number] from [place] are visiting. She is eager to go to rehab. 04/03 Patient is feeling better. She is eager to moved to rehab. Exam Narrative: WDWN in NAD skin no rash or subcu nodules head ncat lungs clear bilaterally cor reg no rub or gallop abd BS+ nontender and soft ext no edema or cyanosis. Objective Data Vital Signs Vital Signs: Vital Signs - 24 hr 04/02/22 13:58 04/02/22 14:00 04/02/22 21:36 Temperature 98.4 F 98.5 F Pulse Rate 66 68 Respiratory Rate 18 18 Blood Pressure 141/55 H 152/60 H Pulse Oximetry 96 95 Oxygen Delivery Room Air 04/02/22 20:00 04/03/22 05:49 04/03/22 08:50 Temperature 97 F L Pulse Rate 66 Respiratory Rate 20 Blood Pressure 155/60 H Pulse Oximetry 97 Oxygen Delivery Room Air Room Air Intake/Output Intake/Output: Intake & Output 03/31/22 04/01/22 04/02/22 04/03/22 23:59 23:59 23:59 23:59 Intake Total 2980 1880 2220 380 Output Total 3150 1600 Balance -170 1880 620 380 Meds/Results Medications: Active Medications Generic Name Dose Route Start Last Admin Trade Name Freq PRN Reason Stop Dose Admin Acetaminophen 650 mg 03/30/22 22:26 04/02/22 11:47 Acetaminophen 325 Mg Tablet PO 650 mg Q6H PRN Administration Mild Pain (1-3) or Fever Aspirin 81 mg 04/03/22 09:00 04/03/22 08:49 Aspirin 81 Mg Enteric Tablet PO 81 mg DAILY MILIND Administration Atorvastatin Calcium 20 mg 04/03/22 09:00 04/03/22 08:49 Atorvastatin 20 Mg Tablet PO 20 mg DAILY MILIND Administration Cyanocobalamin 1,000 mcg 04/03/22 09:00 04/03/22 08:50 Cyanocobalamin 1,000 Mcg Tablet PO 1,000 mcg DAILY MLIIND Administration Furosemide 20 mg 03/31/22 18:15 04/03/22 08:49 Furosemide 20 Mg Tablet PO 20 mg BID MILIND Administration Hydralazine HCl 10 mg 03/30/22 11:04 Hydralazine Hcl 20 Mg/Ml Vial IV PUS
--- NOTE | 2022-04-03 12:18 | PM.DS ---
DS: Admitting Diagnosis Discharge Date 04/03/2022 Admitting Diagnosis Hyponatremia DS: Discharge Diagnosis Discharge Diagnosis (1) Acute hyponatremia: Code(s): E87.1 - Hypo-osmolality and hyponatremia Status: Acute Assessment and Plan: Sodium was 119 upon arrival suspect acute on chronic issue secondary to dehydration and excessive fluid intake managed by nephrology received IV fluids with implementation of fluid restriction sodium improved at appropriate rate will continue fluid restriction diet. Started on lasix 20 mg daily and sodium chloride tabs 1 g daily recheck sodium levels at nursing facility in 3 days continue to follow with nephrology (2) Acute metabolic encephalopathy: Code(s): G93.41 - Metabolic encephalopathy Status: Resolved Assessment and Plan: Presented with lethargy and confusion likely secondary to hyponatremia head CT with no acute intracranial abnormalities UA without concern for infection mental status returned to baseline with improvement of hyponatremia (3) USMAN (acute kidney injury): Code(s): N17.9 - Acute kidney failure, unspecified Status: Acute Assessment and Plan: acute on chronic. presented with creatinine 1.50 baseline appears to be 09-1.20 renal function improved with IV fluid rehydration repeat BMP at nursing facility (4) Hypochloremia: Code(s): E87.8 - Other disorders of electrolyte and fluid balance, not elsewhere classified Status: Acute Assessment and Plan: Improved with IV fluids (5) Hyperkalemia: Code(s): E87.5 - Hyperkalemia Status: Acute Assessment and Plan: Resolved. (6) Hypothyroidism: Code(s): E03.9 - Hypothyroidism, unspecified Status: Chronic Assessment and Plan: Continue levothyroxine (7) Dementia: Code(s): F03.90 - Unspecified dementia, unspecified severity, without behavioral disturbance, psychotic disturbance, mood disturbance, and anxiety Status: Chronic Assessment and Plan: Continue memantine DS: Summary Hospital Course Hospital Course: Date of Admission: 03/29/2022 Date of discharge: 04/03/2022 Israel Piña is an 80 female history hypertension, CKD, dementia, frequent falls, hyperlipidemia, hypothyroidism, sick sinus syndrome s/p pacemaker, and several other medical problems who presented to the emergency department on 03/29/2022 with concerns for increased confusion. On presentation to the ED, her vital signs were stable, she was afebrile, CBC unremarkable, BMP revealed sodium of 119, potassium 5.1, chloride 86, creatinine 1.5, UA unremarkable, head CT with no acute intracranial process, cervical spine no acute findings, CXR no acute findings. She was admitted to the hospitalist service for further evaluation and management was seen in consultation by nephrology. Please see above for further details. Sodium levels are monitor closely and did improve. Mental status returned to baseline. Patient was weak and participated in therapy during admission. She will continue therapy at SNF. With improvement in sodium levels and patient feeling overall improved, was determined to no longer require inpatient care and was discharged in hemodynamically stable condition on 04/03/2022. Discussed with patient and POA regarding medication changes, worrisome signs and symptoms for which to return, and follow-up information. Time Spent with Patient Time attestation: Total time spent providing and/or coordinating discharge services: 45 minutes Time spent: Greater than 30 minutes Exam Narrative: General: well-nourished, well-appearing 87-year-old female, sitting up in bed, comfortable, NARD Neuro: awake, alert and oriented x4, speech clear, no focal neuro deficits noted HEENMT: normocephalic, atraumatic, EOMI, sclerae anicteric Respiratory: clear to auscultation bilaterally, nonla
[2022-04-03 14:13] LABS: EDCOVIDSCREEN Negative (Negative)
--- NOTE | 2022-04-10 11:24 | PC.NURSE ---
Family called to clarify discharge medications. Mediations clarified and all questions answered.
== END 2022-04-03 15:55 | DRG 640 ==
LOC: ANHED 22:00 → ANH3MEDSUR 23:31
PROVIDERS: Internal Medicine Nephrology; Nurse Practitioner; Admitting Provider Internal Medicine; Emergency Provider Nurse Practitioner Family; PCP Family Medicine; Visit Provider Physician Assistant
DX: E87.1 Hypo-osmolality and hyponatremia (principal); G93.41 Metabolic encephalopathy; N17.9 Acute kidney failure, unspecified; I12.9 Hypertensive chronic kidney disease with stage 1 through stage 4 chronic kidney disease, or unspecified chronic kidney disease; N18.9 Chronic kidney disease, unspecified; E86.0 Dehydration; E87.8 Other disorders of electrolyte and fluid balance, not elsewhere classified; E03.9 Hypothyroidism, unspecified; E53.8 Deficiency of other specified B group vitamins; E78.5 Hyperlipidemia, unspecified; I49.5 Sick sinus syndrome; K59.00 Constipation, unspecified; R29.6 Repeated falls; F03.90 Unspecified dementia, unspecified severity, without behavioral disturbance, psychotic disturbance, mood disturbance, and anxiety; Z20.822 Contact with and (suspected) exposure to COVID-19; Z95.0 Presence of cardiac pacemaker
CPT/HCPCS: 36415; 51701; 70450; 71045; 72125; 74018; 80048; 80053; 80069; 81003; 82533; 82570; 83735; 83930; 83935; 84132; 84295; 84300; 84443; 84484; 84540; 85025; 85027; 85610; 85730; 87426; 93005; 96360; 97161; 97165; 99285; A9270; C9803; J7030; U0003; U0005

== ENCOUNTER 2022-04-14 13:50 | Outpatient (CLI) | payer MEDICARE, BC, SELFPAY ==
[2022-04-14 19:32] LABS: Anion Gap 10 mmol/L (8-16); Blood Urea Nitrogen 24 mg/dL (7-17); Calcium 9.4 mg/dL (8.4-10.2); Carbon Dioxide 31 mmol/L (22-30); Chloride 98 mmol/L (98-107); Estimated Glomerular Filt Rate 47; Glucose 67 mg/dL (65-110); Potassium 3.7 mmol/L (3.4-5.0); Sodium 139 mmol/L (137-145)
== END 2022-04-14 13:51 | disposition home or self-care (01) ==
LOC: ANHBWCLAB 13:52
PROVIDERS: PCP Family Medicine; Visit Provider Family Medicine
DX: E87.1 Hypo-osmolality and hyponatremia (principal)
CPT/HCPCS: 36415; 80048

== ENCOUNTER 2022-05-03 15:01 | Inpatient (IN) | payer MEDICARE, BC, SELFPAY ==
--- NOTE | ~2022-05-03 | XR_ITS ---
EXAMINATION: XR chest 2V DATE: 05/03/2022 16:59 INDICATION: Shortness of breath and cough TECHNIQUE: AP and lateral views of the chest are obtained. COMPARISON: 03/29/2022 FINDINGS: The lungs are free of acute opacities. No pleural effusion or pneumothorax. The cardiomedia stinal silhouette is normal. There is moderate thoracic spondylosis. A dual-lead cardiac pacemaker of the left chest wall ends with leads in expected locations. Surgical clips are noted in the right upp er quadrant. IMPRESSION: 1. No acute cardiopulmonary abnormality. Reviewed, dictated and finalized at location B. [facility]
[2022-05-03 15:04] VITALS: BP 186/63; PULSE 80; RESP 19; TEMP 37.3; O2SAT 95
--- NOTE | 2022-05-03 15:27 | ED.SOB ---
HPI - SOB/Dyspnea General Chief Complaint: Shortness of Breath/Dyspnea Stated Complaint: SOB with exertion History of Present Illness HPI Narrative: Patient is an 87-year-old female with a history of hypertension, hyperlipidemia, CHF, hypothyroidism, dementia, CKD presenting with shortness of breath. Patient lives with her granddaughter who reports that she has had nasal congestion, sore throat, and a cough for the last several days. Today she was very stridorous and wheezy so her granddaughter became concerned. A home health nurse came and heard wheezing bilaterally so she was advised to come to the ER. Patient denies any chest pain or lightheadedness. States that she does feel slightly short of breath. No fevers or chills, headache, abdominal pain, nausea or vomiting, diarrhea. Has chronic bilateral leg swelling that is unchanged. Related Data Home Medications Medication Instructions Recorded Confirmed aspirin 81 mg tablet,delayed 81 mg PO DAILY 05/21/19 05/03/22 release (Adult Low Dose Aspirin) multivitamin 1 tablet PO DAILY 05/03/22 05/03/22 psyllium husk 0.4 gram capsule 0.4 g PO DAILY 05/03/22 05/03/22 (Metamucil) Allergies Allergy/AdvReac Type Severity Reaction Status Date / Time adhesive tape Allergy Severe BLISTERS, Verified 05/03/22 15:14 RED, SKIN BREAKDOWN diclofenac Allergy Unknown Redness of Verified 05/04/22 11:08 Skin,Nausea levofloxacin Allergy Unknown Unknown Verified 05/03/22 15:14 mirabegron Allergy Unknown Unknown Verified 05/03/22 15:14 pneumococcal vaccine Allergy Unknown Unknown Verified 05/03/22 15:14 Quinolones Allergy Unknown Unknown Verified 05/03/22 15:14 Influenza Virus Vaccines Allergy Unknown Verified 05/03/22 15:14 metoprolol Allergy Unknown Verified 05/03/22 15:14 celecoxib AdvReac Unknown Agitated Verified 05/04/22 11:09 hydrochlorothiazide AdvReac low sodium Verified 05/04/22 11:09 Review of Systems Review of Systems: All systems reviewed & are unremarkable except as noted in HPI and below PMFSH Past Medical History Medical History (Updated 05/04/22 @ 15:07 by Eva Perdomo MD) Acute kidney injury superimposed on chronic kidney disease Benign essential hypertension CKD (chronic kidney disease) Constipation, chronic Dementia Elevated fasting glucose Family history of cancer Frequent falls Hearing difficulty Hyperlipidemia Hyperlipidemia, acquired Hypertension Hyponatremia Hypothyroidism Mitral valve prolapse Pacemaker Secondhand smoke exposure Sick sinus syndrome Syncope Vitamin B12 deficiency Surgical History Surgical History (Updated 05/04/22 @ 00:22 by Miri Beaulieu NP) H/O cataract extraction H/O colonoscopy with polypectomy H/O tubal ligation History of hip surgery Hx of cholecystectomy S/P tonsillectomy and adenoidectomy S/P total abdominal hysterectomy Family History Family History Mother Family history of pancreatic cancer Father Acute myocardial infarction Social History Social History (Updated 05/04/22 @ 00:23 by Miri Beaulieu NP) Social History: the patient is . She has 2 children. She lives with her granddaughter. 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 She does not use any alcohol marijuana or illicit drugs. Code status DNR Smoking status: Never smoker Second hand tobacco smoke exposure: No Alcohol intake: never Substance use: never Lack of Transportation: No Lack of Food: Never True Current Housing: I Have Housing Concerned About Future Housing: No Difficulty Paying Gas/Electric Bills: No Difficulty Paying for Meds: No Currently Unemployed: No Education: High School Diploma/GED Difficulty w/ Childcare or Family Care: No Spiritual care concerns: No Exam Narrative: GENERAL: Elderly female laying in bed in no acute distress, cooperative HEAD: Normocephalic, atraumatic. EYES: PERRLA and
--- NOTE | 2022-05-03 15:28 | ECG_ITS ---
Measurements Intervals [place] Rate: 67 P: 69 NV: 217 QRS: -69 QRSD: 141 T: 32 QT: 381 QTc: 405 Interpretive Statements SINUS RHYTHM WITH FIRST DEGREE AV BLOCK RIGHT BUNDLE BRANCH BLOCK LEFT ANTERIOR FASCICULAR BLOCK BASELINE ARTIFACT- I, II, III, AVR, AVF ABNORMAL ECG COMPARED TO ECG 03/29/2022 21:49:53 NO SIGNIFICANT CHANGES Electronically Signed On 05-03-2022 16:09:28 ICU SPECIALIST by Randolph Cruz D.O.
[2022-05-03 15:39] VITALS: PULSE 69; RESP 16
[2022-05-03] MEDS: ALBUTEROL SULFATE NEB 2.5 MG/3 ML INH 10 MG INHALATION (15:39)
[2022-05-03] MEDS: IPRATROPIUM BR 0.02% INH SOLN 0.5 MG/2.5 ML VIAL INHALATION ×2 (15:39→21:52)
[2022-05-03 15:49] LABS: Basophils Percent Auto 0.4 % (0.2-1.2); Eosinophils Absolute Auto 0.2 K/mm3 (0-0.3); Eosinophils Percent Auto 2.8 % (0-4.4); Hematocrit 35.2 % (37.0-47.0); Hemoglobin 11.8 g/dL (12.0-15.0); Immature Granulocyte Absolute 0.03 K/mm3 (0.00-0.031); Immature Granulocyte Percent A 0.4 % (0-0.5); Mean Corpuscular HGB Conc 33.5 g/dl (32-36); Mean Corpuscular Hemoglobin 31.9 pg (26-34); Mean Corpuscular Volume 95.1 fl (80-100); Monocytes Absolute Auto 0.6 K/mm3 (0.1-0.6); Monocytes Percent Auto 8.6 % (2.6-8.5); Neutrophils Percent Auto 69.8 % (45.5-73.1); Platelet Count Result 129 k/mm3 (150-375); Red Cell Distribution Width 13.4 % (11.5-14.5); White Blood Count 7.2 K/mm3 (4.5-10.0)
[2022-05-03 16:01] LABS: Alanine Aminotransferase 21 U/L (6-35); Albumin Level 3.9 g/dL (3.5-5.1); Alkaline Phosphatase 69 U/L (38-126); Anion Gap 3 mmol/L (8-16); Aspartate Amino Transferase 28 U/L (14-36); Bilirubin,Total 0.6 mg/dL (0.2-1.3); Blood Urea Nitrogen 16 mg/dL (7-17); Carbon Dioxide 30 mmol/L (22-30); Chloride 101 mmol/L (98-107); Estimated CRCL calculation 40 ml/min; Estimated Glomerular Filt Rate 59; Glucose 118 mg/dL (65-110); Potassium 3.9 mmol/L (3.4-5.0); Sodium 134 mmol/L (137-145)
[2022-05-03 16:13] LABS: Troponin I 0.021 ng/mL (0.000-0.034)
[2022-05-03 16:43] VITALS: PULSE 82; RESP 20
[2022-05-03 17:48] LABS: Influenza A QL RT-PCR Negative (Negative); Influenza B QL RT-PCR Negative (Negative); RSV RNA, RT-PCR Negative (Negative); SARS-CoV-2 RNA PCR Negative
[2022-05-03] MEDS: methylPREDNISolone SOD SUCC 125 MG VIAL IV PUSH (18:41)
[2022-05-03 19:11] LABS: Troponin I 0.022 ng/mL (0.000-0.034)
[2022-05-03 20:02] LABS: Add Urine Microscopic? YES; Appearance Urine Clear (Clear); Bilirubin Urine Negative (Negative); Blood Urine Negative (Negative); Color Urine Yellow (Yellow); Glucose Urine UA Negative (Negative); Ketones Urine Negative (Negative); Leukocyte Esterase Ur Negative LEU/UL (Negative); Nitrate Urine Negative (Negative); Protein Urine Negative (Negative); Specific Grav Ur 1.015 (1.001-1.035); pH Urine 6.5 (5.0-9.0)
[2022-05-03 20:35] VITALS: BP 104/89; PULSE 70; RESP 15; O2SAT 98
--- NOTE | 2022-05-03 21:26 | ADMGEN ---
This patient, Israel Piña, was admitted to 3 [facility] Surg Room 307-02. Patient/family oriented to hospital policies and general routines including ID bracelet, bed and alarms, visiting hours, pain management, procedures, bathroom and other care routines, personal items, smoking policy, room service/diet, and visiting hours. Information on how to activate the Rapid Response Team has been discussed. Patient/Family are encouraged to report perceived risks to care and to ask questions if they do not understand what they are told or what they should do.
[2022-05-03] MEDS: ALBUTEROL SULFATE NEB 2.5 MG/3 ML INH 5 MG INHALATION (21:52)
[2022-05-03 21:53] LABS: Bacteria Urine Trace /hpf; Mucus Urine Rare /lpf; Squamous Epithelial Cell Urine Few /hpf (Few)
[2022-05-03 21:58] VITALS: PULSE 71; RESP 18
[2022-05-03 22:00] VITALS: BP 149/46; PULSE 76; RESP 18; TEMP 35.9; O2SAT 91
--- NOTE | 2022-05-03 23:32 | PM.IMHP ---
H&P: HPI History of Present Illness Date/Time: 05/03/22 23:32 Chief Complaint: shortness of breath Narrative: this is an 87-year-old female patient who has a history of congestive heart failure, dementia, chronic kidney disease, hypertension and hyperlipidemia. The patient came to the emergency room complaining of shortness of breath. She lives with her granddaughter reports that she has nasal congestion, sore throat and a cough for the last several days. The patient was having stridor and wheezing as per granddaughter and her granddaughter became concerned also the home health nurse came in heard wheezing bilateral and advised the patient to go to the emergency room. She has no fever chills. She is very hard of hearing and having difficulty answering my questions. H&H is 11.8 and 35.2. Which is her baseline. Platelet count 129. Troponin 0.021 and 0.022. the patient is negative for influenza A/B and COVID as well as RSV. Chest x-ray was read as no acute cardiopulmonary . the patient was given nebulizer treatments knee about. The patient is being admitted to observation status on the date of service of 05/03/2022 Review of Systems Review of Systems: see HPI All systems reviewed & are unremarkable except as noted in HPI and below Constitutional: Constitutional: Reports as per HPI and Reports no additional constitutional complaints Eyes: Eyes: Reports as per HPI and Reports no additional eye complaints ENT: Reports system reviewed and no additional complaints, except as documented and Reports Normal hearing present Cardiovascular: Cardiovascular: Reports no additional cardiovascular complaints Respiratory: Respiratory: Reports no additional respiratory complaints and Reports no additional respiratory complaints Gastrointestinal: Gastrointestinal: Reports as per HPI and Reports no additional gastrointestinal complaints Musculoskeletal: Musculoskeletal: Reports no additional musculoskeletal complaints Integumentary/Breasts: Skin/Breast: Reports system reviewed and no additional complaints, except as docu and Reports as per HPI Neurologic: Reports system reviewed and no additional complaints, except as documented, Reports as per HPI and Reports Normal hearing present Psychiatric: Psychiatric: Reports no additional psychiatric complaints and Reports as per HPI Endocrine: Endocrine: Reports no additional endocrine complaints Hematologic/Lymphatic: Hematologic/Lymphatic: Reports no additional hematologic/lymphatic complaints Allergic/Immunologic: Allergic/Immunologic: Reports no additional allergic/immunologic complaints [facility] Past Medical History Medical History (Updated 05/04/22 @ 00:30 by Miri Beaulieu NP) Acute kidney injury superimposed on chronic kidney disease Benign essential hypertension CKD (chronic kidney disease) Constipation, chronic Dementia Elevated fasting glucose Family history of cancer Frequent falls Hearing difficulty Hyperlipidemia Hyperlipidemia, acquired Hypertension Hyponatremia Hypothyroidism Mitral valve prolapse Pacemaker Secondhand smoke exposure Sick sinus syndrome Syncope Vitamin B12 deficiency Surgical History Surgical History (Updated 05/04/22 @ 00:22 by Miri Beaulieu NP) H/O cataract extraction H/O colonoscopy with polypectomy H/O tubal ligation History of hip surgery Hx of cholecystectomy S/P tonsillectomy and adenoidectomy S/P total abdominal hysterectomy Family History Family History Mother Family history of pancreatic cancer Father Acute myocardial infarction Social History Social History (Updated 05/04/22 @ 00:23 by Miri Beaulieu NP) Social History: the patient is . She has 2 children. She lives with her granddaughter. 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 She does not use any alcohol marijuana or illicit drugs. Code status DNR Smoking status: Never smoker
[2022-05-04] VITALS (7 sets, daily range): BP systolic 135–152; BP diastolic 45–72; PULSE 68–78; RESP 15–20; TEMP 36.1–36.6; O2SAT 94–97
--- NOTE | 2022-05-04 01:53 | ADMGEN ---
This patient, Israel Piña, was admitted to 3 [facility] Surg Room 307-02 2099. Patient/family oriented to hospital policies and general routines including ID bracelet, bed and alarms, visiting hours, pain management, procedures, bathroom and other care routines, personal items, smoking policy, room service/diet, and visiting hours. Information on how to activate the Rapid Response Team has been discussed. Patient/Family are encouraged to report perceived risks to care and to ask questions if they do not understand what they are told or what they should do.
[2022-05-04] MEDS: methylPREDNISolone SOD SUCC 125 MG VIAL 60 MG IV PUSH ×3 (06:35→18:08)
[2022-05-04] MEDS: LEVOTHYROXINE SODIUM 100 MCG TABLET PO (06:36)
[2022-05-04 07:36] LABS: Basophils Percent Auto 0.2 % (0.2-1.2); Hematocrit 34.7 % (37.0-47.0); Hemoglobin 11.6 g/dL (12.0-15.0); Immature Granulocyte Absolute 0.02 K/mm3 (0.00-0.031); Immature Granulocyte Percent A 0.3 % (0-0.5); Lymphocytes Absolute Auto 0.78 K/mm3 (0.9-3.2); Lymphocytes Percent Auto 12.2 % (18.3-44.2); Mean Corpuscular HGB Conc 33.4 g/dl (32-36); Mean Corpuscular Hemoglobin 31.9 pg (26-34); Mean Corpuscular Volume 95.3 fl (80-100); Mean Platelet Volume 10.9 fl (7.4-10.4); Monocytes Absolute Auto 0.2 K/mm3 (0.1-0.6); Monocytes Percent Auto 2.5 % (2.6-8.5); Neutrophils Absolute Auto 5.4 K/mm3 (1.3-6.7); Neutrophils Percent Auto 84.8 % (45.5-73.1); Platelet Count Result 138 k/mm3 (150-375); Red Blood Count 3.64 M/mm3 (4.2-5.4); Red Cell Distribution Width 13.4 % (11.5-14.5); White Blood Count 6.4 K/mm3 (4.5-10.0)
[2022-05-04 07:47] LABS: Alanine Aminotransferase 22 U/L (6-35); Albumin Level 3.9 g/dL (3.5-5.1); Alkaline Phosphatase 67 U/L (38-126); Anion Gap 7 mmol/L (8-16); Aspartate Amino Transferase 27 U/L (14-36); Bilirubin,Total 0.6 mg/dL (0.2-1.3); Blood Urea Nitrogen 19 mg/dL (7-17); Carbon Dioxide 25 mmol/L (22-30); Chloride 102 mmol/L (98-107); Estimated CRCL calculation 40 ml/min; Estimated Glomerular Filt Rate 59; Glucose 152 mg/dL (65-110); Magnesium 1.9 mg/dL (1.6-2.3); Potassium 4.7 mmol/L (3.4-5.0); Sodium 134 mmol/L (137-145)
[2022-05-04 08:38] LABS: Thyroid Stimulating Hormone Reflex 0.473 uIU/mL (0.465-4.68)
[2022-05-04] MEDS: MEMANTINE 10 MG TABLET PO ×2 (08:47→21:16)
[2022-05-04] MEDS: lisinopriL 20 MG TABLET 40 MG PO (08:47)
[2022-05-04] MEDS: PSYLLIUM POWDER PACKET 1 PACKET BY MOUTH (08:48)
[2022-05-04] MEDS: ATORVASTATIN 20 MG TABLET PO (08:48)
[2022-05-04] MEDS: MULTIVITAMINS THERAPEUTIC TAB (*BKC) 1 TABLET PO (08:48)
[2022-05-04] MEDS: ASPIRIN 81 MG ENTERIC TABLET PO (08:48)
[2022-05-04] MEDS: IPRATROPIUM BR 0.02% INH SOLN 0.5 MG/2.5 ML VIAL INHALATION ×2 (09:40→14:31)
[2022-05-04] MEDS: ALBUTEROL SULFATE NEB 2.5 MG/3 ML INH 5 MG INHALATION ×2 (09:41→14:31)
[2022-05-04] MEDS: DOXYCYCLINE 100 MG/NS 100 ML 100 MG/100 ML BAG IVPB ×2 (11:45→21:15)
--- NOTE | 2022-05-04 14:40 | PM.IMPN ---
Progress Note: A&P Assessment and Plan (1) Upper respiratory infection: Code(s): J06.9 - Acute upper respiratory infection, unspecified Status: Acute Assessment and Plan: -chest x-ray shows no acute cardiopulmonary disease - the patient has no prior history of COPD nor has she been tested for it. The patient denies COPD. -the patient has some wheezing. She had a nebulizer machine at home but does not use it. -continue with nebulizer treatments. -Continue Solu-Medrol - Robitussin 05/04/2022 interval history: patient is 87-year-old female presented with shortness of breath with wheezing concerning for COPD however patient herself has never smoked there is a possibility he may have been exposed to secondhand smoke, patient is being treated with Solu-Medrol and bronchodilator, patient has history of congestive heart failure discharge the patient on low-dose Lasix and monitor, will taper patient's Solu-Medrol patient's symptoms improved, will have PT OT evaluate the patient and further recommendation to follow, (2) Dementia: Code(s): F03.90 - Unspecified dementia, unspecified severity, without behavioral disturbance, psychotic disturbance, mood disturbance, and anxiety Status: Chronic Assessment and Plan: -continue with Namenda (3) Hypothyroidism: Code(s): E03.9 - Hypothyroidism, unspecified Status: Chronic Assessment and Plan: -check thyroid level and continue with levothyroxine. (4) Hyperlipidemia, acquired: Code(s): E78.5 - Hyperlipidemia, unspecified Status: Acute Assessment and Plan: - continue with atorvastatin (5) CKD (chronic kidney disease): Code(s): N18.9 - Chronic kidney disease, unspecified Status: Acute Assessment and Plan: continue to monitor - renal functions are normal toda (6) Hypertension: Code(s): I10 - Essential (primary) hypertension Status: Acute Assessment and Plan: -continue with lisinopril blood pressure initially was 186/63 and is now 104/89. Subjective Date/time seen: 05/04/22 14:40 Chief Complaint: ?shortness of breath HPI-Narrative: ?this is an 87-year-old female patient who has a history of congestive heart failure, dementia, chronic kidney disease, hypertension and hyperlipidemia.? The patient came to the emergency room complaining of shortness of breath.? She lives with her granddaughter reports that she has nasal congestion, sore throat and a cough for the last several days.? The patient was having stridor and wheezing as per granddaughter and her granddaughter became concerned also the home health nurse came in heard wheezing bilateral and advised the patient to go to the emergency room.? She has no fever chills.? She is very hard of hearing and having difficulty answering my questions.? H&H is 11.8 and 35.2.? Which is her baseline.? Platelet count 129.? Troponin 0.021 and 0.022.? the patient is? negative for influenza A/B and COVID as well as RSV.? Chest x-ray was read as no acute cardiopulmonary . the patient was given nebulizer treatments knee about.? The patient is being admitted to observation status on the date of service of 05/03/2022 05/04/2022 interval history: patient is 87-year-old female presented with shortness of breath with wheezing concerning for COPD however patient herself has never smoked there is a possibility he may have been exposed to secondhand smoke, patient is being treated with Solu-Medrol and bronchodilator, patient has history of congestive heart failure discharge the patient on low-dose Lasix and monitor, will taper patient's Solu-Medrol patient's symptoms improved, will have PT OT evaluate the patient and further recommendation to follow, Review of Systems Review of Systems: All systems reviewed & are unremarkable except as noted in HPI and below Exam Narrative: moderately obese Patient is comfortable, NAD HEENT: eyes are clear and none icteric
--- NOTE | 2022-05-04 23:10 | PCRCNOTE ---
past window of administration. see next available administration.
[2022-05-05] VITALS (11 sets, daily range): BP systolic 141–168; BP diastolic 58–72; PULSE 60–83; RESP 16–20; TEMP 36.1–36.6; O2SAT 94–98
[2022-05-05] MEDS: methylPREDNISolone SOD SUCC 125 MG VIAL 60 MG IV PUSH ×5 (00:17→23:54)
[2022-05-05] MEDS: IPRATROPIUM BR 0.02% INH SOLN 0.5 MG/2.5 ML VIAL INHALATION ×4 (02:40→21:47)
[2022-05-05] MEDS: ALBUTEROL SULFATE NEB 2.5 MG/3 ML INH 5 MG INHALATION ×4 (02:40→21:47)
[2022-05-05] MEDS: LEVOTHYROXINE SODIUM 100 MCG TABLET PO (05:58)
[2022-05-05 06:17] LABS: Hematocrit 33.8 % (37.0-47.0); Hemoglobin 11.1 g/dL (12.0-15.0); Immature Platelet Fraction Pct 6.7 % (0.9-11.2); Mean Corpuscular HGB Conc 32.8 g/dl (32-36); Mean Corpuscular Hemoglobin 31.6 pg (26-34); Mean Corpuscular Volume 96.3 fl (80-100); Platelet Count Result 111 k/mm3 (150-375); Red Blood Count 3.51 M/mm3 (4.2-5.4); Red Cell Distribution Width 13.3 % (11.5-14.5)
[2022-05-05 06:34] LABS: Anion Gap 6 mmol/L (8-16); Blood Urea Nitrogen 28 mg/dL (7-17); Calcium 8.4 mg/dL (8.4-10.2); Carbon Dioxide 26 mmol/L (22-30); Chloride 102 mmol/L (98-107); Estimated CRCL calculation 40 ml/min; Estimated Glomerular Filt Rate 59; Glucose 171 mg/dL (65-110); Magnesium 1.9 mg/dL (1.6-2.3); Potassium 3.8 mmol/L (3.4-5.0); Sodium 134 mmol/L (137-145)
[2022-05-05] MEDS: MULTIVITAMINS THERAPEUTIC TAB (*BKC) 1 TABLET PO (09:11)
[2022-05-05] MEDS: DOXYCYCLINE 100 MG/NS 100 ML 100 MG/100 ML BAG IVPB ×2 (09:11→20:34)
[2022-05-05] MEDS: ATORVASTATIN 20 MG TABLET PO (09:11)
[2022-05-05] MEDS: ASPIRIN 81 MG ENTERIC TABLET PO (09:11)
[2022-05-05] MEDS: lisinopriL 20 MG TABLET 40 MG PO (09:11)
[2022-05-05] MEDS: MEMANTINE 10 MG TABLET PO ×2 (09:11→20:34)
[2022-05-05] MEDS: FUROSEMIDE INJ 40 MG/4 ML VIAL 20 MG IV PUSH (09:12)
[2022-05-05] MEDS: PSYLLIUM POWDER PACKET 1 PACKET BY MOUTH (09:23)
--- NOTE | 2022-05-05 11:25 | PM.IMPN ---
Progress Note: A&P Assessment and Plan (1) Upper respiratory infection: Code(s): J06.9 - Acute upper respiratory infection, unspecified Status: Acute Assessment and Plan: -chest x-ray shows no acute cardiopulmonary disease - the patient has no prior history of COPD nor has she been tested for it. The patient denies COPD. -the patient has some wheezing. She had a nebulizer machine at home but does not use it. -continue with nebulizer treatments. -Continue Solu-Medrol - Robitussin 05/04/2022 interval history: patient is 87-year-old female presented with shortness of breath with wheezing concerning for COPD however patient herself has never smoked there is a possibility he may have been exposed to secondhand smoke, patient is being treated with Solu-Medrol and bronchodilator, patient has history of congestive heart failure discharge the patient on low-dose Lasix and monitor, will taper patient's Solu-Medrol patient's symptoms improved, will have PT OT evaluate the patient and further recommendation to follow, (2) Dementia: Code(s): F03.90 - Unspecified dementia, unspecified severity, without behavioral disturbance, psychotic disturbance, mood disturbance, and anxiety Status: Chronic Assessment and Plan: -continue with Namenda (3) Hypothyroidism: Code(s): E03.9 - Hypothyroidism, unspecified Status: Chronic Assessment and Plan: -check thyroid level and continue with levothyroxine. (4) Hyperlipidemia, acquired: Code(s): E78.5 - Hyperlipidemia, unspecified Status: Acute Assessment and Plan: - continue with atorvastatin (5) CKD (chronic kidney disease): Code(s): N18.9 - Chronic kidney disease, unspecified Status: Acute Assessment and Plan: continue to monitor - renal functions are normal toda (6) Hypertension: Code(s): I10 - Essential (primary) hypertension Status: Acute Assessment and Plan: -continue with lisinopril blood pressure initially was 186/63 and is now 104/89. Subjective Date/time seen: 05/05/22 11:25 Breathing is better. Exam Narrative: moderately obese Patient is comfortable, NAD HEENT: eyes are clear and none icteric LUNGS: bilateral fair air entry with minimal rales and rhonchi, no wheezing presently ABD: distended Lower extremities: no edema SKIN: nonjaundiced Neuro: grossly intact. Objective Data Vital Signs Vital Signs: Vital Signs - 24 hr 05/04/22 14:00 05/04/22 14:33 05/04/22 20:00 Temperature 97.8 F Pulse Rate 68 78 78 Respiratory Rate 20 16 16 Blood Pressure 135/45 L Pulse Oximetry 94 94 Oxygen Delivery Room Air 05/04/22 22:00 05/05/22 02:42 05/05/22 02:56 Temperature 96.9 F L Pulse Rate 73 75 77 Respiratory Rate 19 16 16 Blood Pressure 143/67 H Pulse Oximetry 96 Oxygen Delivery 05/05/22 06:00 05/05/22 09:21 05/05/22 09:21 Temperature 96.9 F L Pulse Rate 60 76 Respiratory Rate 18 16 Blood Pressure 141/62 H Pulse Oximetry 94 95 Oxygen Delivery Room Air 05/05/22 09:42 Temperature Pulse Rate 72 Respiratory Rate 16 Blood Pressure Pulse Oximetry Oxygen Delivery Intake/Output Intake/Output: Intake & Output 05/02/22 05/03/22 05/04/22 05/05/22 23:59 23:59 23:59 23:59 Intake Total 2430 910 Balance 2430 910 Meds/Results Medications: Active Medications Generic Name Dose Route Start Last Admin Trade Name Freq PRN Reason Stop Dose Admin Albuterol 5 mg 05/03/22 20:00 05/05/22 09:19 Albuterol Sulfate Neb 2.5 Mg/3 Ml Inh INHALATION 5 mg Q6HRT MILIND Administration Aspirin 81 mg 05/04/22 09:00 05/05/22 09:11 Aspirin 81 Mg Enteric Tablet PO 81 mg DAILY MILIND Administration Atorvastatin Calcium 20 mg 05/04/22 09:00 05/05/22 09:11 Atorvastatin 20 Mg Tablet PO 20 mg DAILY MILIND Administration Furosemide 20 mg 05/05/22 09:00 05/05/22 09:12 Furosemide Inj 40 Mg/4 Ml
[2022-05-06] MEDS: ALBUTEROL SULFATE NEB 2.5 MG/3 ML INH 5 MG INHALATION ×2 (02:49→09:35)
[2022-05-06] MEDS: IPRATROPIUM BR 0.02% INH SOLN 0.5 MG/2.5 ML VIAL INHALATION ×2 (02:49→09:35)
[2022-05-06 03:05] VITALS: PULSE 71; RESP 16
[2022-05-06 03:22] VITALS: PULSE 74; RESP 16
[2022-05-06 05:44] VITALS: BP 139/56; PULSE 62; RESP 18; TEMP 36.2; O2SAT 97
[2022-05-06] MEDS: LEVOTHYROXINE SODIUM 100 MCG TABLET PO (05:46)
[2022-05-06] MEDS: methylPREDNISolone SOD SUCC 125 MG VIAL 60 MG IV PUSH ×2 (05:46→12:54)
[2022-05-06 06:15] LABS: Hematocrit 32.1 % (37.0-47.0); Hemoglobin 11.1 g/dL (12.0-15.0); Mean Corpuscular HGB Conc 34.6 g/dl (32-36); Mean Corpuscular Hemoglobin 31.9 pg (26-34); Mean Corpuscular Volume 92.2 fl (80-100); Mean Platelet Volume 10.8 fl (7.4-10.4); Platelet Count Result 124 k/mm3 (150-375); Red Blood Count 3.48 M/mm3 (4.2-5.4); Red Cell Distribution Width 13.7 % (11.5-14.5); White Blood Count 15.1 K/mm3 (4.5-10.0)
[2022-05-06 06:35] LABS: Anion Gap 7 mmol/L (8-16); Blood Urea Nitrogen 34 mg/dL (7-17); Calcium 8.3 mg/dL (8.4-10.2); Carbon Dioxide 24 mmol/L (22-30); Chloride 102 mmol/L (98-107); Estimated CRCL calculation 37 ml/min; Estimated Glomerular Filt Rate 52; Glucose 199 mg/dL (65-110); Magnesium 1.9 mg/dL (1.6-2.3); Potassium 3.5 mmol/L (3.4-5.0); Sodium 133 mmol/L (137-145)
[2022-05-06] MEDS: DOXYCYCLINE 100 MG/NS 100 ML 100 MG/100 ML BAG IVPB (09:00)
[2022-05-06] MEDS: MEMANTINE 10 MG TABLET PO (09:08)
[2022-05-06] MEDS: MULTIVITAMINS THERAPEUTIC TAB (*BKC) 1 TABLET PO (09:08)
[2022-05-06] MEDS: ATORVASTATIN 20 MG TABLET PO (09:08)
[2022-05-06] MEDS: lisinopriL 20 MG TABLET 40 MG PO (09:09)
[2022-05-06] MEDS: FUROSEMIDE INJ 40 MG/4 ML VIAL 20 MG IV PUSH (09:09)
[2022-05-06] MEDS: PSYLLIUM POWDER PACKET 1 PACKET BY MOUTH (09:15)
[2022-05-06] MEDS: ASPIRIN 81 MG ENTERIC TABLET PO (09:20)
[2022-05-06 09:36] VITALS: PULSE 61; RESP 18; O2SAT 99
[2022-05-06 09:49] VITALS: PULSE 61; RESP 18
--- NOTE | 2022-05-06 13:09 | PM.DS ---
DS: Admitting Diagnosis Discharge Date May 06, 2022 Admitting Diagnosis Bronchitis DS: Discharge Diagnosis Discharge Diagnosis (1) Upper respiratory infection: Code(s): J06.9 - Acute upper respiratory infection, unspecified Status: Acute Assessment and Plan: -chest x-ray shows no acute cardiopulmonary disease - the patient has no prior history of COPD nor has she been tested for it. The patient denies COPD. -the patient has some wheezing. She had a nebulizer machine at home but does not use it. -continue with nebulizer treatments. -Continue Solu-Medrol - Robitussin 05/04/2022 interval history: patient is 87-year-old female presented with shortness of breath with wheezing concerning for COPD however patient herself has never smoked there is a possibility he may have been exposed to secondhand smoke, patient is being treated with Solu-Medrol and bronchodilator, patient has history of congestive heart failure discharge the patient on low-dose Lasix and monitor, will taper patient's Solu-Medrol patient's symptoms improved, will have PT OT evaluate the patient and further recommendation to follow, (2) Dementia: Code(s): F03.90 - Unspecified dementia, unspecified severity, without behavioral disturbance, psychotic disturbance, mood disturbance, and anxiety Status: Chronic Assessment and Plan: -continue with Namenda (3) Hypothyroidism: Code(s): E03.9 - Hypothyroidism, unspecified Status: Chronic Assessment and Plan: -check thyroid level and continue with levothyroxine. (4) Hyperlipidemia, acquired: Code(s): E78.5 - Hyperlipidemia, unspecified Status: Acute Assessment and Plan: - continue with atorvastatin (5) CKD (chronic kidney disease): Code(s): N18.9 - Chronic kidney disease, unspecified Status: Acute Assessment and Plan: continue to monitor - renal functions are normal toda (6) Hypertension: Code(s): I10 - Essential (primary) hypertension Status: Acute Assessment and Plan: -continue with lisinopril blood pressure initially was 186/63 and is now 104/89. DS: Summary Hospital Course Hospital Course: A7 female came in with bronchitis. Started on prednisone. Much improved. Vital signs stable patient can be discharged Time Spent with Patient Time attestation: Total time spent providing and/or coordinating discharge services: Exam Narrative: moderately obese Patient is comfortable, NAD HEENT: eyes are clear and none icteric LUNGS: bilateral fair air entry with minimal rales and rhonchi, no wheezing presently ABD: distended Lower extremities: no edema SKIN: nonjaundiced Neuro: grossly intact. DS: Data Data Completed and Pending Labs on day of discharge: Labs from last 24 hours 05/06/22 05/06/22 05:48 05:48 WBC 15.1 H RBC 3.48 L Hgb 11.1 L Hct 32.1 L MCV 92.2 MCH 31.9 MCHC 34.6 RDW 13.7 Plt Count 124 L MPV 10.8 H Sodium 133 L Potassium 3.5 Chloride 102 Carbon Dioxide 24 Anion Gap 7 L BUN 34 H Creatinine 1.00 Estim Creat Clear Calc 37 Estimated GFR 52 L Glucose 199 H Calcium 8.3 L Magnesium 1.9 Discharge Plan Discharge Attending physician on discharge: Mikhail Garcia Discharging Clinician: Mikhail Garcia Patient Disposition: Home, Self-Care Activity: no preference Diet: as tolerated Patient Instructions: Antibiotic Form Stand Alone Forms: General Discharge Information Follow-up/Referrals: Earl Glez MD [Primary Care Provider] - Discharge Medications: Continued lisinopril 40 mg tablet 40 mg PO DAILY Qty: 90 0RF aspirin [Adult Low Dose Aspirin] 81 mg tablet,delayed release (DR/EC) 81 mg PO DAILY multivitamin [One A Day Vitamin] Tablet 1 tablet PO DAILY psyllium husk [Metamucil] 0.4 gram Capsule 0.4 g PO DAILY memantine [Namenda] 10 mg table
--- NOTE | 2022-05-06 13:45 | PC.NURSE ---
Called Dr Garcia about no steroid ordered for discharge he said she doesn't need. Also asked about antibiotic but states she didn't need.
== END 2022-05-06 13:55 | disposition home health service (06) | DRG 153 ==
LOC: ANHED 16:07 → ANH3MEDSUR 20:55
PROVIDERS: Family Medicine; Nurse Practitioner; Admitting Provider Internal Medicine; Emergency Provider Emergency Medicine; PCP Family Medicine; Visit Provider Chiropractor
DX: J06.9 Acute upper respiratory infection, unspecified (principal); I13.0 Hypertensive heart and chronic kidney disease with heart failure and stage 1 through stage 4 chronic kidney disease, or unspecified chronic kidney disease; E78.5 Hyperlipidemia, unspecified; E03.9 Hypothyroidism, unspecified; E53.8 Deficiency of other specified B group vitamins; F03.90 Unspecified dementia, unspecified severity, without behavioral disturbance, psychotic disturbance, mood disturbance, and anxiety; H91.90 Unspecified hearing loss, unspecified ear; I50.9 Heart failure, unspecified; I49.5 Sick sinus syndrome; N18.9 Chronic kidney disease, unspecified; Z95.0 Presence of cardiac pacemaker; Z20.822 Contact with and (suspected) exposure to COVID-19; Z79.82 Long term (current) use of aspirin; Z98.49 Cataract extraction status, unspecified eye; Z90.49 Acquired absence of other specified parts of digestive tract; Z90.710 Acquired absence of both cervix and uterus; Z66 Do not resuscitate
CPT/HCPCS: 36415; 71046; 80048; 80053; 81001; 83735; 84443; 84484; 85025; 85027; 85055; 87637; 93005; 94640; 96365; 96374; 96375; 96376; 97161; 99285; A9270; G0378; J1940; J2930